=== PATIENT | female | born 1985 | race Caucasian/White ===

== ENCOUNTER 2016-04-08 18:36 | Emergency (ER) | payer BC ==
[2016-04-08 18:42] VITALS: RESP 18
[2016-04-08] MEDS ORDERED: IBUPROFEN 600 MG TAB PO STA (19:04)
--- NOTE | 2016-04-08 19:17 | ED ---
Lower Extremity Injury HPI - General Chief Complaint: Extremity Injury, Lower Stated Complaint: L Knee Injury Time Seen by Provider: 04/08/16 18:44 Source: patient, RN notes reviewed Mode of arrival: ambulatory Limitations: no limitations - History of Present Illness Initial Comments: Patient is a 30-year-old female presents to the emergency room for evaluation of left knee pain. 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 Patient states she has not been able to put weight on her left leg ever since. Patient states the incident happened around 4:30 PM this afternoon. Patient states she is having 10 out of 10 pain. Patient states the pain is worse when she puts weight on her leg or moves her knee. Patient denies any other injuries during incident. Patient denies taking any Tylenol or Motrin for pain. Patient states she put ice over her knee immediately after the incident happened. - Related Data Previous Rx's Medication Instructions Recorded Ibuprofen [Motrin] 600 mg PO Q6HR PRN #20 tab 04/08/16 traMADol HCl [Ultram] 50 mg PO Q4H PRN #12 tab 04/08/16 Allergies Allergy/AdvReac Type Severity Reaction Status Date / Time No Known Allergies Allergy Verified 04/08/16 18:43 Review of Systems ROS Statement: Those systems with pertinent positive or pertinent negative responses have been documented in the HPI. ROS Other: All systems not noted in ROS Statement are negative. Past Medical History Past Medical History: No Reported History Additional Past Medical History / Comment(s): Murmur when young. Social history : Smokes half pack of cigarettes per day. No marijuana or illicit drug use. No use of alcohol reported. No toxic inhalation reported. Family history: No family history of intrinsic lung disease reported. History of Any Multi-Drug Resistant Organisms: None Reported Past Surgical History: Appendectomy, Section Additional Past Surgical History / Comment(s): x2 c- scetion, reconstructive nASAL SX Past Anesthesia/Blood Transfusion Reactions: No Reported Reaction Past Psychological History: No Psychological Hx Reported Smoking Status: Current every day smoker Past Alcohol Use History: Occasional Past Drug Use History: None Reported General Exam - General Exam Comments Initial Comments: Sitting in exam room, no acute distress. Limitations: no limitations General appearance: alert, in no apparent distress Head exam: Present: atraumatic, normocephalic, normal inspection Eye exam: Present: normal appearance ENT exam: Present: normal exam Neck exam: Present: normal inspection Respiratory exam: Absent: respiratory distress Left Upper Leg exam: Present: normal inspection, full ROM. Absent: tenderness Knee exam: Present: tenderness (medial knee joint, posterior knee joint), pain w / pronation/supination. Absent: full ROM (patient unable to fully extend knee secondary to pain. Patient can only bend knee about 10), full knee extension Lower Leg exam: Present: normal inspection, full ROM. Absent: tenderness Neurovascular tendon exam: Absent: pulse deficit (2+ dorsal pedal and posterior tibial pulses), abnormal cap refill (Capillary refill less than 2 seconds) Gait: unable to bear weight Back exam: Present: normal inspection Neurological exam: Present: alert, oriented X3, CN II-XII intact Psychiatric exam: Present: normal affect, normal mood Skin exam: Present: warm, dry, intact, normal color. Absent: rash Course Vital Signs 04/08/16 04/08/16 18:41 19:57 Temperature 98.4 F 98 F Pulse Rate 71 78 Respiratory 18 18 Rate Blood Pressure 128/60 122/76 O2 Sat by Pulse 97 99 Oximetry Procedures - Orthopedic Splinting/Casting Injury #1 Side: left Lower Extremity Injury Location: knee Lower Extremity Immobilizer: Alfa wrap Medical Decision Making - Medical Decision Making Patient is a 30-year-old female presents to the emergency room for evaluation of left knee injury. Left knee x-ray shows no acute findings. Patient placed in an Alfa wrap and advised to [id number]. Advised patient to follow-up with clinic specialist for further evaluation to rule out any further internal injuries. Patient states she understands everything that was discussed with her. Return parameters discussed. Case discussed with Dr. Herron. - Radiology Data Radiology results: report reviewed, image reviewed Disposition Clinical Impression: Left knee sprain Disposition: HOME SELF-CARE Condition: Good Instructions: Knee Sprain (ED) Additional Instructions: Rest, elevate and ice on and off for 10-15 minutes for the next 24-48 hours. Take ibuprofen as needed for pain. Take tramadol as needed for severe pain. Please follow-up with clinic specialist in 24-48 hours for reevaluation. If new symptoms develop or symptoms worsen, please return to the ER. Prescriptions: Ibuprofen [Motrin] 600 mg PO Q6HR PRN #20 tab PRN Reason: Pain traMADol HCl [Ultram] 50 mg PO Q4H PRN #12 tab PRN Reason: Pain Referrals: Rosa Lozano MD [Primary Care Provider] - 1-2 days Paulo Brewster MD [STAFF PHYSICIAN] - 1-2 days Time of Disposition: 19:47
--- NOTE | 2016-04-08 19:44 | XR ---
EXAMINATION TYPE: XR knee complete LT DATE OF EXAM: 04/08/2016 7:19 PM CLINICAL HISTORY: Pain after hearing a pop. TECHNIQUE: Three views of the left knee are obtained. COMPARISON: None. FINDINGS: There is no acute fracture/dislocation evident in left knee. The tri-compartment joint sp aces appear within normal limits. The overlying soft tissue appears unremarkable. IMPRESSION: There is no acute fracture or dislocation in the left knee.
[2016-04-08 19:59] VITALS: BP 122/76; PULSE 78; TEMP 98
== END 2016-04-08 19:58 | disposition home or self-care (01) ==
LOC: EC 18:36
DX: S83.92XA Sprain of unspecified site of left knee, initial encounter (principal); X58.XXXA Exposure to other specified factors, initial encounter; F17.210 Nicotine dependence, cigarettes, uncomplicated
CPT/HCPCS: 99283

== ENCOUNTER → 2017-04-13 | Outpatient (CLI) | payer BC ==
--- NOTE | 2017-04-13 10:38 | XR ---
Left elbow HISTORY: Trauma and pain 2 views of the left elbow Comparison the left humerus 04/28/2012 Bone mineralization, joint spaces and alignment are maintained. No evident joint effusion. IMPRESSION: No acute fracture or dislocation.
== END | disposition home or self-care (01) ==
LOC: RADXRYALE 09:20
PROVIDERS: ATTEND Physician Assistant Medical
DX: M25.522 Pain in left elbow (principal)

== ENCOUNTER 2017-07-16 16:58 | Observation (INO) | payer BC ==
[2017-07-16] MEDS ORDERED: methylPREDNISolone SOD SUCCI 125 MG/2 ML VIAL IV STA (17:08)
[2017-07-16] MEDS ORDERED: IPRATROPIUM-ALBUTEROL 3 ML NEB INHALATION STA (17:08)
[2017-07-16] MEDS ORDERED: LORazepam 2 MG/ML INJ IV STA (17:09)
[2017-07-16 17:25] LABS: Basophils % (A) 0 %; Eosinophils # (A) 0.5 k/uL (0-0.7); Eosinophils % (A) 4 %; HCT 43.4 % (34.0-46.0); HGB 14.6 gm/dL (11.4-16.0); Lymphocytes # (A) 1.4 k/uL (1.0-4.8); Lymphocytes % (A) 11 %; MCH 27.9 pg (25.0-35.0); MCHC 33.5 g/dL (31.0-37.0); MCV 83.1 fL (80.0-100.0); Mean Platelet Volume 7.1; Monocytes # (A) 0.6 k/uL (0-1.0); Monocytes % (A) 5 %; Neutrophils # (A) 9.9 k/uL (1.3-7.7); Neutrophils % (A) 79 %; Platelet Count 223 k/uL (150-450); RBC 5.22 m/uL (3.80-5.40); RDW 13.6 % (11.5-15.5); WBC 12.5 k/uL (3.8-10.6)
[2017-07-16 17:35] LABS: Anion Gap 13 mmol/L; Blood Urea Nitrogen 11 mg/dL (7-17); Calcium 9.4 mg/dL (8.4-10.2); Carbon Dioxide 22 mmol/L (22-30); Chloride 109 mmol/L (98-107); Glucose 85 mg/dL (74-99); Potassium 4.1 mmol/L (3.5-5.1); Sodium 144 mmol/L (137-145)
--- NOTE | 2017-07-16 17:39 | ED ---
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 Patient reports is been like this for the past few days. Patient states that she has had to be admitted in the past for these symptoms. Patient relates that she waits until last minute to come to the emergency room. Patient reports that her cough has been mildly productive. - Related Data Previous Rx's Medication Instructions Recorded traMADol HCl [Ultram] 50 mg PO Q4H PRN #12 tab 04/08/16 Allergies Allergy/AdvReac Type Severity Reaction Status Date / Time albuterol AdvReac Unknown Verified 07/16/17 17:05 Review of Systems ROS Statement: Those systems with pertinent positive or pertinent negative responses have been documented in the HPI. ROS Other: All systems not noted in ROS Statement are negative. Past Medical History Past Medical History: No Reported History Additional Past Medical History / Comment(s): Murmur when young. Social history : Smokes half pack of cigarettes per day. No marijuana or illicit drug use. No use of alcohol reported. No toxic inhalation reported. Family history: No family history of intrinsic lung disease reported. History of Any Multi-Drug Resistant Organisms: None Reported Past Surgical History: Appendectomy, Section Additional Past Surgical History / Comment(s): x2 c- scetion, reconstructive nASAL SX Past Anesthesia/Blood Transfusion Reactions: No Reported Reaction Past Psychological History: No Psychological Hx Reported Smoking Status: Current every day smoker Past Alcohol Use History: Occasional Past Drug Use History: None Reported General Exam - General Exam Comments Initial Comments: 32-year-old female. Alert and oriented. Mild respiratory distress. Audible wheezing from door. Limitations: no limitations General appearance: alert, in no apparent distress Head exam: Present: atraumatic, normocephalic, normal inspection Eye exam: Present: normal appearance, PERRL, EOMI. Absent: scleral icterus, conjunctival injection, periorbital swelling ENT exam: Present: normal exam, mucous membranes moist Neck exam: Present: normal inspection. Absent: tenderness, meningismus, lymphadenopathy Respiratory exam: Present: wheezes, rhonchi (Diffuse wheezes and rhonchi noted.) . Absent: normal lung sounds bilaterally, respiratory distress, rales, stridor Cardiovascular Exam: Present: regular rate, normal rhythm, normal heart sounds. Absent: systolic murmur, diastolic murmur, rubs, gallop, clicks GI/Abdominal exam: Present: soft, normal bowel sounds. Absent: distended, tenderness, guarding, rebound, rigid Extremities exam: Present: normal inspection, full ROM, normal capillary refill. Absent: tenderness, pedal edema, joint swelling, calf tenderness Back exam: Present: normal inspection Neurological exam: Present: alert, oriented X3, CN II-XII intact Psychiatric exam: Present: normal affect, normal mood Course Vital Signs 07/16/17 07/16/17 07/16/17 17:02 17:22 17:25 Temperature 98.2 F Pulse Rate 107 H 107 H Respiratory 20 24 Rate Blood Pressure 96/52 O2 Sat by Pulse 97 Oximetry 07/16/17 07/16/17 17:32 18:34 Temperature 98.2 F Pulse Rate 112 H 80 Respiratory 18 Rate Blood Pressure 112/57 O2 Sat by Pulse 99 Oximetry - Reevaluation(s) Reevaluation #1: 07/16/17 18:52 Patient was given a DuoNeb treatment. She continues to have rhonchi and wheezing and cough. She is unable to complete sentences due to this bouts of coughing. I discussed admission and Patient is agreeable. We will admit for observation for COPD exacerbation with steroids and pus started the Patient on azithromycin. Medical Decision Making - Medical Decision Making This patient's a 32-year-old female with history of smoking presents with congestion and cough for the past 3 days. She reports initially started with her sinuses a week ago. She reports rib pain while coughing. EKG performed and shows normal sinus rhythm nonspecific T-wave abnormality and P3. No other acute changes. Troponin is negative. Negative d-dimer. Chest x-ray shows evidence of no focal pneumonia however peribronchial cuffing. After double DuoNeb she continues to have significant wheezing. Given IV Solu-Medrol. At this time elevated the Patient for COPD exacerbation. Consults to pulmonology. I had an extensive discussion about counseling for smoking cessation. - Lab Data Result diagrams: 07/16/17 17:10 07/16/17 17:10 Lab Results 07/16/17 07/16/17 07/16/17 Range/Units 17:10 17:10 17:10 WBC 12.5 H (3.8-10.6) k/uL RBC 5.22 (3.80-5.40) m/uL Hgb 14.6 (11.4-16.0) gm/dL Hct 43.4 (34.0-46.0) % MCV 83.1 (80.0-100.0) fL MCH 27.9 (25.0-35.0) pg MCHC 33.5 (31.0-37.0) g/dL RDW 13.6 (11.5-15.5) % Plt Count 223 (150-450) k/uL Neutrophils % 79 % Lymphocytes % 11 % Monocytes % 5 % Eosinophils % 4 % Basophils % 0 % Neutrophils # 9.9 H (1.3-7.7) k/uL Lymphocytes # 1.4 (1.0-4.8) k/uL Monocytes # 0.6 (0-1.0) k/uL Eosinophils # 0.5 (0-0.7) k/uL Basophils # 0.0 (0-0.2) k/uL PT (9.0-12.0) sec INR (<1.2) APTT (22.0-30.0) sec D-Dimer (<0.60) mg/L FEU Sodium 144 (137-145) mmol/L Potassium 4.1 (3.5-5.1) mmol/L Chloride 109 H (98-107) mmol/L Carbon Dioxide 22 (22-30) mmol/L Anion Gap 13 mmol/L BUN 11 (7-17) mg/dL Creatinine 0.80 (0.52-1.04) mg/dL Est GFR (CKD-EPI)AfAm >90 (>60 ml/min/1.73 sqM) Est GFR (CKD-EPI)NonAf >90 (>60 ml/min/1.73 sqM) Glucose 85 (74-99) mg/dL Plasma Lactic Acid Manny 1.5 (0.7-2.0) mmol/L Calcium 9.4 (8.4-10.2) mg/dL Troponin I (0.000-0.034) ng/mL 07/16/17 07/16/17 Range/Units 17:10 17:10 WBC (3.8-10.6) k/uL RBC (3.80-5.40) m/uL Hgb (11.4-16.0) gm/dL Hct (34.0-46.0) % MCV (80.0-100.0) fL MCH (25.0-35.0) pg MCHC (31.0-37.0) g/dL RDW (11.5-15.5) % Plt Count (150-450) k/uL Neutrophils % % Lymphocytes % % Monocytes % % Eosinophils % % Basophils % % Neutrophils # (1.3-7.7) k/uL Lymphocytes # (1.0-4.8) k/uL Monocytes # (0-1.0) k/uL Eosinophils # (0-0.7) k/uL Basophils # (0-0.2) k/uL PT 9.8 (9.0-12.0) sec INR 1.0 (<1.2) APTT 23.4 (22.0-30.0) sec D-Dimer 0.26 (<0.60) mg/L FEU Sodium (137-145) mmol/L Potassium (3.5-5.1) mmol/L Chloride (98-107) mmol/L Carbon Dioxide (22-30) mmol/L Anion Gap mmol/L BUN (7-17) mg/dL Creatinine (0.52-1.04) mg/dL Est GFR (CKD-EPI)AfAm (>60 ml/min/1.73 sqM) Est GFR (CKD-EPI)NonAf (>60 ml/min/1.73 sqM) Glucose (74-99) mg/dL Plasma Lactic Acid Manny (0.7-2.0) mmol/L Calcium (8.4-10.2) mg/dL Troponin I <0.012 (0.000-0.034) ng/mL - Radiology Data Radiology results: report reviewed Mild. Bronchial cuffing with surrounding bronchus intermedius suggest bronchitis reactive airway disease. No focal consolidation to suggest pneumonia. Disposition Clinical Impression: Bronchitis, Acute dyspnea, Chest wall pain, Nicotine addiction Disposition: ADMITTED IP TO THIS HOSP Condition: Stable Is patient prescribed a controlled substance at d/c from ED?: No When asked, does pt state using other controlled substances?: No If prescribed controlled substance>3 days was MAPS reviewed?: No If opioid is for acute pain is fill amount 7 days or less?: No If Rx opioid, was Start Talking consent form obtained?: No Referrals: Rosa Lozano MD [Primary Care Provider] - 1-2 days Time of Disposition: 18:54
--- NOTE | 2017-07-16 17:51 | XR ---
EXAMINATION TYPE: XR chest 2V DATE OF EXAM: 07/16/2017 COMPARISON: 09/03/2013 HISTORY: Cough and congestion TECHNIQUE: Frontal and lateral views of the chest are obtained. FINDINGS: There is mild peribronchial cuffing surrounding the bronchus intermedius There is no focal air space opacity, pleural effusion, or pneumothorax seen. The cardiac silhouette size is within no rmal limits. The osseous structures are intact. IMPRESSION: Mild peribronchial cuffing surrounding the bronchus intermedius suggesting bronchitis or reactive airway disease. No focal consolidation to suggest pneumonia.
[2017-07-16 18:09] LABS: D-Dimer 0.26 mg/L FEU (<0.60); Partial Thromboplastin Time 23.4 sec (22.0-30.0); Prothrombin Time 9.8 sec (9.0-12.0)
[2017-07-16] MEDS: SODIUM CHLORIDE 0.9% 1,000 ML IV SCH (18:32)
[2017-07-16] MEDS ORDERED: NICOTINE 14MG/24HR PATCH TRANSDERM SCH (19:00)
[2017-07-16 19:58] VITALS: BMI 27.4
[2017-07-16] MEDS: ALPRAZolam 0.25 MG TAB PO PRN (20:09)
[2017-07-16] MEDS: guaiFENesin 600 MG TABLET.ER PO SCH (20:10)
[2017-07-16] MEDS: HYDROcodone/APAP 5-325MG 1 EACH TAB PO PRN (20:10)
[2017-07-16 20:44] LABS: Glucose,Whole Blood 147 mg/dL (75-99)
[2017-07-16] MEDS: IPRATROPIUM-ALBUTEROL 3 ML NEB INHALATION PRN (20:45)
[2017-07-16] MEDS: BUDESONIDE 0.5 MG/2 ML NEBU INHALATION SCH (20:45)
[2017-07-16] MEDS: INSULIN ASPART 100 UNIT/ML 1 ML 10 ML VIAL SQ SCH (22:05)
[2017-07-16] MEDS ORDERED: MELATONIN 5 MG TABLET PO SCH (22:30)
[2017-07-17] MEDS: methylPREDNISolone SOD SUCCI 125 MG/2 ML VIAL IV SCH ×3 (01:01→12:54)
[2017-07-17] MEDS: ALPRAZolam 0.25 MG TAB PO PRN ×2 (01:01→07:50)
[2017-07-17] MEDS: IPRATROPIUM-ALBUTEROL 3 ML NEB INHALATION PRN ×2 (02:04→08:44)
[2017-07-17] MEDS: HYDROcodone/APAP 5-325MG 1 EACH TAB PO PRN ×2 (05:24→12:53)
[2017-07-17 05:39] LABS: Appearance,Urine Clear (Clear); Bilirubin,Urine Negative (Negative); Blood,Urine Negative (Negative); Color,Urine Yellow; Glucose,Urine (UA) 4+ (Negative); Ketones,Urine Trace (Negative); Leukocyte Esterase,Urine Negative (Negative); Nitrite,Urine Negative (Negative); PH, Urine 6.5 (5.0-8.0); Protein,Urine Negative (Negative); Specific Gravity,Urine 1.023 (1.001-1.035); Urobilinogen,Urine <2.0 mg/dL (<2.0)
[2017-07-17 06:54] LABS: Glucose,Whole Blood 133 mg/dL (75-99)
[2017-07-17 07:41] VITALS: BP 108/57; RESP 18; TEMP 98
[2017-07-17] MEDS: BUDESONIDE 0.5 MG/2 ML NEBU INHALATION SCH (08:44)
[2017-07-17] MEDS: INSULIN ASPART 100 UNIT/ML 1 ML 10 ML VIAL SQ SCH ×2 (08:56→12:54)
[2017-07-17 08:58] VITALS: PULSE 98
[2017-07-17] MEDS: guaiFENesin 600 MG TABLET.ER PO SCH (08:58)
[2017-07-17] MEDS: SODIUM CHLORIDE 0.9% 1,000 ML IV SCH (08:59)
[2017-07-17] MEDS ORDERED: AZITHROMYCIN 500 MG TAB PO SCH (09:00)
--- NOTE | 2017-07-17 10:37 | P.CNPUL ---
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 She presents to the emergency department with complaints of increasing shortness of breath cough wheezing chest tightness. She had a previous episode about 4 years ago which time she saw my partner. She has not been back to the office. She smokes about a pack a day for 19 years. Started smoking when she was 13 years of age. Doesn't take any medication on a regular basis. She does take some tramadol from time to time for a bad right knee. She states that albuterol causes her to feel nervous and anxious. The patient's doing much better today. Could be discharged home on some prednisone with a burst and taper and a rescue inhaler. In addition we counseled about the importance of smoking cessation. Finally, we told her that it's very important for her to come see us in the office so we can do some pulmonary function testing on her. It appears that the only time her lungs are tacked up is when she has an upper respiratory tract infection or sinus infection. She does have a previous history of 2 with reconstructive nasal surgeries and appendectomy. Review of Systems A 12 point review of system is positive for shortness of breath chest tightness wheezing cough chest congestion. Past Medical History Past Medical History: COPD Additional Past Medical History / Comment(s): Murmur when young. Social history : Smokes half pack of cigarettes per day. No marijuana or illicit drug use. No use of alcohol reported. No toxic inhalation reported. Family history: No family history of intrinsic lung disease reported. History of Any Multi-Drug Resistant Organisms: None Reported Past Surgical History: Appendectomy, Section Additional Past Surgical History / Comment(s): x2 c- scetion, reconstructive nASAL SX Past Anesthesia/Blood Transfusion Reactions: No Reported Reaction Past Psychological History: No Psychological Hx Reported Smoking Status: Current every day smoker Past Alcohol Use History: Occasional Past Drug Use History: None Reported - Past Family History Father History Unknown: Yes Medications and Allergies Home Medications Medication Instructions Recorded Confirmed Type traMADol HCl [Ultram] 50 mg PO Q4H PRN #12 tab 04/08/16 07/17/17 Rx Albuterol Inhaler [Ventolin Hfa 1 - 2 puff INHALATION RT-Q6H PRN 07/17/17 Rx Inhaler] 30 Days #1 inhaler Azithromycin [Zithromax] 500 mg PO DAILY 5 Days #5 tab 07/17/17 Rx predniSONE 10 mg PO DAILY 16 Days #40 tab 07/17/17 Rx Allergies Allergy/AdvReac Type Severity Reaction Status Date / Time albuterol AdvReac ANXIETY Verified 07/17/17 09:01 Physical Exam Osteopathic Statement: *. No significant issues noted on an osteopathic structural exam other than those noted in the History and Physical/Consult. Vitals: Vital Signs Temp Pulse Pulse Resp BP BP Pulse Ox 07/17/17 08:57 98 07/17/17 08:46 94 94 L 07/17/17 08:00 18 07/17/17 07:20 98.0 F 97 18 108/57 95 07/17/17 04:00 98.7 F 99 16 96 07/17/17 02:14 96 07/17/17 02:04 92 07/16/17 23:43 98.8 F 110 H 18 111/49 99 07/16/17 23:30 18 07/16/17 20:59 112 H 07/16/17 20:47 104 H 07/16/17 20:02 98.1 F 100 18 113/73 96 07/16/17 20:00 18 07/16/17 18:34 98.2 F 80 18 112/57 99 07/16/17 17:32 112 H 07/16/17 17:25 107 H 07/16/17 17:22 24 07/16/17 17:02 98.2 F 107 H 20 96/52 97 Intake and Output 07/16/17 07/17/17 07/17/17 22:59 06:59 14:59 Intake Total 240 Balance 240 Intake: Oral 240 Other: Voiding Method Toilet Toilet Toilet # Voids 1 2 Weight 70.6 kg No acute distress, oriented 3. HEENT examination is grossly unremarkable. Mucous membranes are moist. No oral lesions. Neck supple. Full range of motion. No adenopathy thyromegaly or neck vein distention. Cardiovascular examination reveals regular rhythm rate. S1-S2 normal. No S3 or S4. No discernible murmur noted. Lungs reveal bilateral inspiratory and expiratory wheezes and rhonchi. Breath sounds are diminished throughout. Slight prolongation. No crackles. Abdomen soft bowel sounds are heard. No masses or tenderness. Extremities are intact. No cyanosis clubbing or edema. Skin is without rash or lesion. Neurologic examination is brief but nonfocal. Results - Laboratory Findings CBC and BMP: 07/16/17 17:10 07/16/17 17:10 PT/INR, D-dimer PT 9.8 sec (9.0-12.0) 07/16/17 17:10 INR 1.0 (<1.2) 07/16/17 17:10 D-Dimer 0.26 mg/L FEU (<0.60) 07/16/17 17:10 Abnormal lab findings: Abnormal Labs 07/16/17 07/16/17 07/16/17 17:10 17:10 20:42 WBC 12.5 H Neutrophils # 9.9 H Chloride 109 H POC Glucose (mg/dL) 147 H Urine Glucose (UA) Urine Ketones 07/17/17 07/17/17 05:30 06:51 WBC Neutrophils # Chloride POC Glucose (mg/dL) 133 H Urine Glucose (UA) 4+ H Urine Ketones Trace H - Diagnostic Findings Chest x-ray: report reviewed (Labs x-rays a medications are all reviewed.), image reviewed (Labs x-rays and medications are all reviewed.) Assessment and Plan Assessment: Assessment Probable asthma/COPD exacerbation, likely triggered by chronic tobacco use and/ or environmental issues. Previous history of similar episode some 4 years ago with a bronchospasm and bronchial inflammation. History of ongoing tobacco use Previous knee injury requiring when necessary tramadol Plan: Plan dated 07/17/2017 The patient could be discharged home. She should be discharged on a rescue inhaler to be used 2 puffs only as needed. In addition, she can be discharged home on prednisone 40 mg a day for 4 days 30 mg a day for 4 days 20 mg a day for 4 days 10 mg a day for stop. In addition, the patient is counseled about the importance of smoking cessation. The patient will follow-up in our office. PFTs will be done. Additional recommendations and suggestions are forthcoming. Prognosis is guarded. The decision to discharge her on is short course of antibiotics will be left to the primary service. If antibiotics are prescribed on discharge, I wouldn't treat her for a short period of time such as 3-5 days. No additional recommendations are made. Time with Patient: Greater than 30
[2017-07-17 12:03] LABS: Glucose,Whole Blood 151 mg/dL (75-99)
--- NOTE | 2017-07-17 15:27 | P.HPIM ---
History of Present Illness H&P Date: 07/17/17 Chief Complaint: Shortness of breath Ms. Bean is a 32-year-old [employer] with a past medical history of chronic smoking coming into the hospital with a chief complaint of difficulty in breathing and chest tightness which has been going on for the past 1 week he patient states that she had is similar episode about 4 years back for which she was treated with antibiotics. Patient has been smoking since she was 13 years old. She does not have any chronic medical conditions. She takes tramadol on and off for her right knee and lower back. She states that she has been having cough, nonproductive for the past 2-3 weeks. She denies having any fevers chills or rigors. No night sweats. No recent weight loss. No sick contacts. She denies having any chest pain, palpitations, lower extremity swelling, orthopnea or PND. No complaints of abdominal pain nausea vomiting or diarrhea. No dysuria or hematuria. Patient states that because of the cough she pulled a muscle in her back and has been having back pain whenever she is having a cough. She also mentions that the breathing treatments cause her to have palpitations and she becomes anxious and that Xanax did help her with the anxiety. Patient was given breathing treatments in the ED started on Solu-Medrol and the started on azithromycin after which her symptoms did improve. She was evaluated by Dr. Eckert today and he cleared her to be discharged home and to have a follow-up with him in his office. Review of Systems REVIEW OF SYSTEMS: PSYCH: Anxious with breathing treatments as it gives her palpitations NEURO:No c/o weakness of the extremties, No facial droop, No speech abnormalities. VASCULAR: no edema HEMATOLOGIC: No history of easy bleeding and bruising . No recent infections . RESPIRATORY: As per HPI IMMUNE: No infections INTEGUMENT: no rashes OPHTHALMOLOGIC: No blurry vision and no eye discharge : No dysuria or hematuria CARDIAC: No chest pain , shortness of breath , paroxysmal nocturnal dyspnea MUSCULOSKELETAL : No Aches or pains in the joints or muscles. GI: No abdominal pain, Nausea or vomiting. No constipation or diarrhea. Past Medical History Past Medical History: COPD Additional Past Medical History / Comment(s): Murmur when young. Social history : Smokes half pack of cigarettes per day. No marijuana or illicit drug use. No use of alcohol reported. No toxic inhalation reported. Family history: No family history of intrinsic lung disease reported. History of Any Multi-Drug Resistant Organisms: None Reported Past Surgical History: Appendectomy, Section Additional Past Surgical History / Comment(s): x2 c- scetion, reconstructive nASAL SX Past Anesthesia/Blood Transfusion Reactions: No Reported Reaction Past Psychological History: No Psychological Hx Reported Smoking Status: Current every day smoker Past Alcohol Use History: Occasional Past Drug Use History: None Reported - Past Family History Father History Unknown: Yes Medications and Allergies Home Medications Medication Instructions Recorded Confirmed Type traMADol HCl [Ultram] 50 mg PO Q4H PRN #12 tab 04/08/16 07/17/17 Rx Albuterol Inhaler [Ventolin Hfa 1 - 2 puff INHALATION RT-Q6H PRN 07/17/17 Rx Inhaler] 30 Days #1 inhaler Azithromycin [Zithromax] 500 mg PO DAILY 5 Days #5 tab 07/17/17 Rx predniSONE 10 mg PO DAILY 16 Days #40 tab 07/17/17 Rx Allergies Allergy/AdvReac Type Severity Reaction Status Date / Time albuterol AdvReac ANXIETY Verified 07/17/17 09:01 Physical Exam Vitals: Vital Signs Temp Pulse Pulse Resp BP BP Pulse Ox 07/17/17 12:00 18 07/17/17 08:57 98 07/17/17 08:46 94 94 L 07/17/17 08:00 18 07/17/17 07:20 98.0 F 97 18 108/57 95 07/17/17 04:00 98.7 F 99 16 96 07/17/17 02:14 96 07/17/17 02:04 92 07/16/17 23:43 98.8 F 110 H 18 111/49 99 07/16/17 23:30 18 07/16/17 20:59 112 H 07/16/17 20:47 104 H 07/16/17 20:02 98.1 F 100 18 113/73 96 07/16/17 20:00 18 07/16/17 18:34 98.2 F 80 18 112/57 99 07/16/17 17:32 112 H 07/16/17 17:25 107 H 07/16/17 17:22 24 07/16/17 17:02 98.2 F 107 H 20 96/52 97 Intake and Output 07/16/17 07/17/17 07/17/17 22:59 06:59 14:59 Intake Total 680 Balance 680 Intake: Oral 480 Other 200 Other: Voiding Method Toilet Toilet Toilet # Voids 1 2 Weight 70.6 kg GENERAL EXAM GEN. APPEARANCE: alert, in no apparent distress HEAD EXAM: atraumatic, normocephalic, normal inspection EYE EXAM: normal appearance, PERRL, EOMI. Absent: scleral icterus, conjunctival injection, periorbital swelling ENT EXAM: normal exam, mucous membranes moist NECK EXAM: normal inspection. Absent: tenderness, meningismus, full ROM, lymphadenopathy RESPIRATORY EXAM: normal lung sounds bilaterally. No wheezes or crackles. CARDIOVASCULAR EXAM: regular rate, normal rhythm, normal heart sounds. Absent : systolic murmur, diastolic murmur, rubs, gallop, clicks GI/ABDOMINAL EXAM: soft, normal bowel sounds. Absent: distended, tenderness, guarding, rebound, rigid EXTREMITIES EXAM: normal inspection, full ROM, normal capillary refill. Absent : tenderness, pedal edema, joint swelling, calf tenderness NEUROLOGICAL EXAM: alert, oriented X3, no focal neurological deficits PSYCHIATRIC EXAM: normal affect, normal mood SKIN EXAM: warm, dry, intact, normal color. Absent: rash Results CBC & Chem 7: 07/16/17 17:10 07/16/17 17:10 Labs: Abnormal Lab Results - Last 24 Hours (Table) 07/16/17 07/16/17 07/16/17 Range/Units 17:10 17:10 20:42 WBC 12.5 H (3.8-10.6) k/uL Neutrophils # 9.9 H (1.3-7.7) k/uL Chloride 109 H (98-107) mmol/L POC Glucose (mg/dL) 147 H (75-99) mg/dL Urine Glucose (UA) (Negative) Urine Ketones (Negative) 07/17/17 07/17/17 07/17/17 Range/Units 05:30 06:51 12:01 WBC (3.8-10.6) k/uL Neutrophils # (1.3-7.7) k/uL Chloride (98-107) mmol/L POC Glucose (mg/dL) 133 H 151 H (75-99) mg/dL Urine Glucose (UA) 4+ H (Negative) Urine Ketones Trace H (Negative) Thrombosis Risk Factor Assmnt - Choose All That Apply Each Factor Represents 1 point: Abnormal pulmonary function (COPD) Thrombosis Risk Factor Assessment Total Risk Factor Score: 1 Thrombosis Risk Factor Assessment Level: Low Risk Assessment and Plan Assessment: ASSESSMENT Acute bronchitis ? COPD Nicotine dependence Acute lower back pain due to muscle spasm Right knee pain - chronic Plan: Patient's respiratory status did improve with breathing treatments and the Solu-Medrol. She has been cleared by pulmonary to be discharged home and have a follow-up with them. Patient is being discharged home on short course of steroids, Zithromax and albuterol to take on when necessary basis. Also discussed with the patient if her symptoms worsen to seek immediate medical attention. She has an upcoming appointment with Dr. Lozano in 2 days. Patient states that she is anxious with the breathing treatments so requested Xanax that will be given for couple of days. Patient also has acute low back pain due to muscle spasm so tramadol given for couple of days.
--- NOTE | 2017-07-17 15:30 | P.DS ---
Providers Date of admission: 07/16/17 18:51 Attending physician: Hany Das Consults: 07/16/17 18:55 Consult Physician Stat Consulting Provider: Gracie Sharma Consult Reason/Comments: COPD Do you want consulting provider notified?: Yes, Notify in am Primary care physician: Rosa Lozano [facility] Course: Ms. Bean is a 32-year-old [employer] with a past medical history of chronic smoking coming into the hospital with a chief complaint of difficulty in breathing and chest tightness which has been going on for the past 1 week he patient states that she had is similar episode about 4 years back for which she was treated with antibiotics. Patient has been smoking since she was 13 years old. She does not have any chronic medical conditions. She takes tramadol on and off for her right knee and lower back. She states that she has been having cough, nonproductive for the past 2-3 weeks. She denies having any fevers chills or rigors. No night sweats. No recent weight loss. No sick contacts. She denies having any chest pain, palpitations, lower extremity swelling, orthopnea or PND. No complaints of abdominal pain nausea vomiting or diarrhea. No dysuria or hematuria. Patient states that because of the cough she pulled a muscle in her back and has been having back pain whenever she is having a cough. She also mentions that the breathing treatments cause her to have palpitations and she becomes anxious and that Xanax did help her with the anxiety. Patient was given breathing treatments in the ED started on Solu-Medrol and the started on azithromycin after which her symptoms did improve. She was evaluated by Dr. Eckert today and he cleared her to be discharged home and to have a follow-up with him in his office. DISCHARGE DIAGNOSIS Acute bronchitis ? COPD Nicotine dependence Acute lower back pain due to muscle spasm Right knee pain - chronic Patient's respiratory status did improve with breathing treatments and the Solu- Medrol. She has been cleared by pulmonary to be discharged home and have a follow-up with them. Patient is being discharged home on short course of steroids, Zithromax and albuterol to take on when necessary basis. Also discussed with the patient if her symptoms worsen to seek immediate medical attention. She has an upcoming appointment with Dr. Lozano in 2 days. Patient states that she is anxious with the breathing treatments so requested Xanax that will be given for couple of days. Patient also has acute low back pain due to muscle spasm so tramadol given for couple of days. Patient Condition at Discharge: Stable Plan - Discharge Summary New Discharge Prescriptions: New Albuterol Inhaler [Ventolin Hfa Inhaler] 1 - 2 puff INHALATION RT-Q6H PRN 30 Days #1 inhaler PRN Reason: Dyspnea Azithromycin [Zithromax] 500 mg PO DAILY 5 Days #5 tab predniSONE 10 mg PO DAILY 16 Days #40 tab ALPRAZolam [Xanax] 0.25 mg PO QID PRN #10 tab PRN Reason: Anxiety Nicotine 14Mg/24Hr Patch [Habitrol] 1 patch TRANSDERM Q24H #14 patch Continue traMADol HCl [Ultram] 50 mg PO Q4H PRN #12 tab PRN Reason: Pain Discharge Medication List ALPRAZolam [Xanax] 0.25 mg PO QID PRN #10 tab 07/17/17 [Rx] Albuterol Inhaler [Ventolin Hfa Inhaler] 1 - 2 puff INHALATION RT-Q6H PRN 30 Days #1 inhaler 07/17/17 [Rx] Azithromycin [Zithromax] 500 mg PO DAILY 5 Days #5 tab 07/17/17 [Rx] Nicotine 14Mg/24Hr Patch [Habitrol] 1 patch TRANSDERM Q24H #14 patch 07/17/17 [ Rx] predniSONE 10 mg PO DAILY 16 Days #40 tab 07/17/17 [Rx] traMADol HCl [Ultram] 50 mg PO Q4H PRN #12 tab 07/17/17 [Rx] Follow up Appointment(s)/Referral(s): Duy Eckert DO [Doctor of Osteopathic Medicine] - 08/01/17 9:30 am Rosa Lozano MD [Primary Care Provider] - 1-2 days
== END 2017-07-17 15:57 | disposition home or self-care (01) ==
LOC: EC 16:58 → 3OBS 18:51
PROVIDERS: ADMIT Hospitalist; ATTEND Hospitalist
DX: J44.0 Chronic obstructive pulmonary disease with (acute) lower respiratory infection (principal); J20.9 Acute bronchitis, unspecified; F17.210 Nicotine dependence, cigarettes, uncomplicated; G89.29 Other chronic pain; M25.561 Pain in right knee; F41.9 Anxiety disorder, unspecified; M62.838 Other muscle spasm; M54.5 Low back pain; R94.31 Abnormal electrocardiogram [ECG] [EKG]; Z90.89 Acquired absence of other organs; Z88.8 Allergy status to other drugs, medicaments and biological substances; Z87.828 Personal history of other (healed) physical injury and trauma
CPT/HCPCS: 96376; 96361 ×2; 96374 ×2; 96375 ×2; 99285 ×2; 36415; 94640 ×4; 94760; 93005; 85379; 80048; 83605; 84484; 85025; 85610; 85730; 81003; 87040; 71046; G0378 ×2; S4990; J2060; J2930 ×2

== ENCOUNTER 2018-08-16 22:51 | Emergency (ER) | payer BC ==
[2018-08-16] MEDS ORDERED: KETOROLAC 60 MG/2 ML VIAL IM STA (23:05)
[2018-08-16] MEDS ORDERED: PENICILLIN G BENZATHINE 1,200,000 UNIT/2 ML SYRINGE IM STA (23:06)
[2018-08-16] MEDS ORDERED: ONDANSETRON 4 MG ODT STARTER PACK 2 TAB BTL PO STA (23:06)
[2018-08-16] MEDS ORDERED: MORPHINE SULFATE 4 MG/ML SYRINGE IM STA (23:06)
[2018-08-16] MEDS ORDERED: ACET/COD 300 MG/30 MG STARTER PACK 6 TAB BTL PO STA (23:07)
--- NOTE | 2018-08-16 23:18 | ED ---
General Adult HPI - General Chief complaint: Dental/Oral Stated complaint: Dental Pain Time Seen by Provider: 08/16/18 22:59 Source: patient, RN notes reviewed Mode of arrival: ambulatory Limitations: no limitations - History of Present Illness Initial comments: Patient is a pleasant 33-year-old female presenting to the emergency Department with complaints of dental pain. Onset of symptoms was a day or 2 ago. Patient did start taking an old prescription of penicillin yesterday. Patient states discomfort has worsened today. Patient does have history of similar symptoms previously and has seen dentist for this. Patient states that there is plan for work to be done on this tooth. Patient states her last flareup was in March. Patient states discomfort does radiate towards her ear. Patient states she does have associated nausea with this. - Related Data Previous Rx's Medication Instructions Recorded ALPRAZolam [Xanax] 0.25 mg PO QID PRN #10 tab 07/17/17 Albuterol Inhaler [Ventolin Hfa 1 - 2 puff INHALATION RT-Q6H PRN 07/17/17 Inhaler] 30 Days #1 inhaler Azithromycin [Zithromax] 500 mg PO DAILY 5 Days #5 tab 07/17/17 Nicotine 14Mg/24Hr Patch [Habitrol] 1 patch TRANSDERM Q24H #14 patch 07/17/17 predniSONE 10 mg PO DAILY 16 Days #40 tab 07/17/17 traMADol HCl [Ultram] 50 mg PO Q4H PRN #12 tab 07/17/17 Penicillin V Potassium [Pen Vee K] 500 mg PO QID #40 tablet 08/16/18 Allergies Allergy/AdvReac Type Severity Reaction Status Date / Time albuterol AdvReac ANXIETY Verified 07/17/17 09:01 Review of Systems ROS Statement: Those systems with pertinent positive or pertinent negative responses have been documented in the HPI. ROS Other: All systems not noted in ROS Statement are negative. Constitutional: Denies: fever Eyes: Denies: eye pain ENT: Reports: dental pain. Denies: ear pain Respiratory: Denies: cough Cardiovascular: Denies: chest pain Endocrine: Denies: fatigue Gastrointestinal: Denies: abdominal pain Genitourinary: Denies: dysuria Musculoskeletal: Denies: back pain Skin: Denies: rash Neurological: Denies: weakness Past Medical History Past Medical History: COPD Additional Past Medical History / Comment(s): Murmur when young. Social history: Smokes half pack of cigarettes per day. No marijuana or illicit drug use. No use of alcohol reported. No toxic inhalation reported. Family history: No family history of intrinsic lung disease reported. History of Any Multi-Drug Resistant Organisms: None Reported Past Surgical History: Appendectomy, Section Additional Past Surgical History / Comment(s): x2 c- scetion, reconstructive nASAL SX Past Anesthesia/Blood Transfusion Reactions: No Reported Reaction Past Psychological History: No Psychological Hx Reported Smoking Status: Current every day smoker Past Alcohol Use History: Occasional Past Drug Use History: None Reported - Past Family History Father History Unknown: Yes General Exam Limitations: no limitations General appearance: alert Head exam: Present: atraumatic Eye exam: Present: normal appearance, PERRL ENT exam: Present: normal oropharynx, other (Left upper third premolar with tenderness and minimal lateral swelling.) Neck exam: Present: normal inspection Respiratory exam: Present: normal lung sounds bilaterally Cardiovascular Exam: Present: regular rate, normal rhythm GI/Abdominal exam: Present: soft. Absent: tenderness Neurological exam: Present: alert Psychiatric exam: Present: normal affect, normal mood Skin exam: Present: normal color Course Vital Signs 08/16/18 22:55 Temperature 98.4 F Pulse Rate 68 Respiratory 18 Rate Blood Pressure 153/108 O2 Sat by Pulse 97 Oximetry Disposition Clinical Impression: Dental abscess Disposition: HOME SELF-CARE Condition: Stable Instructions (If sedation given, give patient instructions): Dental Abscess (ED), Toothache (ED) Additional Instructions: Please do follow-up with your primary care physician in the next day or 2 for recheck. Please do follow-up with your dentist tomorrow as planned. Return for increased pain, swelling, fever, redness, worsening symptoms or other concerns. Prescriptions: Penicillin V Potassium [Pen Vee K] 500 mg PO QID #40 tablet Is patient prescribed a controlled substance at d/c from ED?: No Referrals: Rosa Lozano MD [Primary Care Provider] - 1-2 days Time of Disposition: 23:18
[2018-08-16 23:41] VITALS: BP 148/87; PULSE 62; RESP 16; TEMP 98.1
== END 2018-08-16 23:41 | disposition home or self-care (01) ==
LOC: EC 22:51
DX: K04.7 Periapical abscess without sinus (principal); F17.210 Nicotine dependence, cigarettes, uncomplicated
CPT/HCPCS: 99282; 96372 ×3; J0561; J2270; J1885; S0119

== ENCOUNTER 2020-01-18 01:28 | Emergency (ER) | payer BC ==
[2020-01-18 01:47] VITALS: RESP 16
[2020-01-18] MEDS ORDERED: SODIUM CHLORIDE 0.9% 1,000 ML IV STA (01:47)
[2020-01-18] MEDS ORDERED: SODIUM CHLORIDE 0.9% 500 ML 500 ML IV STA (01:47)
[2020-01-18] MEDS ORDERED: LORazepam 2 MG/ML INJ IV STA (01:48)
--- NOTE | 2020-01-18 01:48 | ED ---
Chest Pain HPI - General Chief Complaint: Chest Pain Stated Complaint: Chest Pain Time Seen by Provider: 01/18/20 01:34 Source: patient, family, RN notes reviewed, old records reviewed Mode of arrival: wheelchair Limitations: no limitations - History of Present Illness Initial Comments: This is a 34-year-old female DF for evaluation patient is presenting for evaluation of chest pain this did wake her from sleep symptoms are off for a month. No acute cause found for symptoms in the past. No prior evaluations in the past. Shows have asthma no history of coronavirus no nausea vomiting or diarrhea no chance of . No recent travel history or sick contacts MD Complaint: chest pain -: hour(s) Onset: during rest Pain Location: substernal Pain Radiation: none Severity: mild Severity scale (1-10): 3 Quality: tightness Consistency: constant Improves With: nothing Worsens With: exertion Context: recent illness Anginal Symptoms: nausea Treatments Prior to Arrival: none - Related Data Home Medications Medication Instructions Recorded Confirmed Ibuprofen [Motrin Ib] 400 mg PO Q6H PRN 08/16/18 08/16/18 Previous Rx's Medication Instructions Recorded Penicillin V Potassium [Pen Vee K] 500 mg PO QID #40 tablet 08/16/18 Allergies Allergy/AdvReac Type Severity Reaction Status Date / Time albuterol AdvReac ANXIETY Verified 01/18/20 01:37 Review of Systems ROS Statement: Those systems with pertinent positive or pertinent negative responses have been documented in the HPI. ROS Other: All systems not noted in ROS Statement are negative. EKG Findings - EKG Comments: EKG Findings:: EKG is sinus ED, OR 146 QRS 84 QTc 475 Past Medical History Past Medical History: COPD Additional Past Medical History / Comment(s): Murmur when young. History of Any Multi-Drug Resistant Organisms: None Reported Past Surgical History: Appendectomy, Section Additional Past Surgical History / Comment(s): x2 c- scetion, reconstructive nASAL SX Past Anesthesia/Blood Transfusion Reactions: No Reported Reaction Past Psychological History: No Psychological Hx Reported Smoking Status: Former smoker Past Alcohol Use History: Rare Past Drug Use History: None Reported - Past Family History Father History Unknown: Yes General Exam Limitations: no limitations General appearance: anxious Head exam: Present: atraumatic, normocephalic, normal inspection Eye exam: Present: normal appearance, PERRL, EOMI. Absent: scleral icterus, conjunctival injection, periorbital swelling ENT exam: Present: normal exam, mucous membranes moist Neck exam: Present: normal inspection. Absent: tenderness, meningismus, lymphadenopathy Respiratory exam: Present: normal lung sounds bilaterally. Absent: respiratory distress, wheezes, rales, rhonchi, stridor Cardiovascular Exam: Present: regular rate, normal rhythm, normal heart sounds. Absent: systolic murmur, diastolic murmur, rubs, gallop, clicks GI/Abdominal exam: Present: soft, normal bowel sounds. Absent: distended, tenderness, guarding, rebound, rigid Extremities exam: Present: normal inspection, full ROM, normal capillary refill. Absent: tenderness, pedal edema, joint swelling, calf tenderness Back exam: Present: normal inspection Neurological exam: Present: alert, oriented X3, CN II-XII intact Psychiatric exam: Present: normal affect, normal mood Skin exam: Present: warm, dry, intact, normal color. Absent: rash Course Vital Signs 01/18/20 01:35 Temperature 98.6 F Pulse Rate 86 Respiratory 16 Rate Blood Pressure 133/91 O2 Sat by Pulse 100 Oximetry - Reevaluation(s) Reevaluation #1: 01/18/20 03:01 Medical record is reviewed Reevaluation #2: 01/18/20 03:01 Patient symptoms improved with some anxiety control here in the ER, potassium we'll replace Reevaluation #3: 01/18/20 03:01 Patient is informed of results, questions answered, patient can be discharged Chest Pain MDM - MDM 34 female DF for evaluation patient Dese for evaluation with chest pain no cause found here in the ER some anxiety, otherwise patient can be discharged home Disposition Clinical Impression: Chest wall pain, Atypical chest pain Disposition: HOME SELF-CARE Condition: Good Instructions (If sedation given, give patient instructions): Chest Pain (ED) Is patient prescribed a controlled substance at d/c from ED?: No Referrals: Rosa Lozano MD [Primary Care Provider] - 1-2 days
[2020-01-18 02:17] LABS: Basophils % (A) 0 %; Eosinophils # (A) 0.3 k/uL (0-0.7); Eosinophils % (A) 4 %; HCT 44.8 % (34.0-46.0); HGB 14.8 gm/dL (11.4-16.0); Lymphocytes # (A) 2.1 k/uL (1.0-4.8); Lymphocytes % (A) 25 %; MCH 28.6 pg (25.0-35.0); MCHC 33.2 g/dL (31.0-37.0); MCV 86.2 fL (80.0-100.0); Mean Platelet Volume 7.4; Monocytes # (A) 0.3 k/uL (0-1.0); Monocytes % (A) 3 %; Neutrophils # (A) 5.5 k/uL (1.3-7.7); Neutrophils % (A) 66 %; Platelet Count 216 k/uL (150-450); RBC 5.19 m/uL (3.80-5.40); RDW 12.9 % (11.5-15.5); WBC 8.3 k/uL (3.8-10.6)
[2020-01-18 02:44] LABS: ALT 32 U/L (4-34); AST 31 U/L (14-36); African American GFR (CKD) >90 (>60 ml/min/1.73 sqM); Albumin 4.2 g/dL (3.5-5.0); Alkaline Phosphatase 58 U/L (38-126); Anion Gap 6 mmol/L; Blood Urea Nitrogen 10 mg/dL (7-17); Calcium 9.3 mg/dL (8.4-10.2); Carbon Dioxide 25 mmol/L (22-30); Chloride 108 mmol/L (98-107); Creatine Kinase 92 U/L (30-135); Glucose 102 mg/dL (74-99); Lipase 45 U/L (23-300); Magnesium 1.8 mg/dL (1.6-2.3); Non-African American GFR(CKD) >90 (>60 ml/min/1.73 sqM); Potassium 3.3 mmol/L (3.5-5.1); Sodium 139 mmol/L (137-145); Total Bilirubin 0.4 mg/dL (0.2-1.3); Total Protein 6.7 g/dL (6.3-8.2)
[2020-01-18 02:49] LABS: D-Dimer 0.29 mg/L FEU (<0.60); INR 0.9 (<1.2); Partial Thromboplastin Time 24.1 sec (22.0-30.0); Prothrombin Time 9.8 sec (9.0-12.0)
--- NOTE | 2020-01-18 02:49 | XR ---
EXAM: XR Chest, 2 Views CLINICAL HISTORY: ITS.REASON XR Reason: Chest Pain TECHNIQUE: Frontal and lateral views of the chest. COMPARISON: CXR 07/16/17 FINDINGS: Lungs: Unremarkable. No consolidation. Pleural space: Unremarkable. No pleural effusion or pneumothorax. Heart: Unremarkable. No cardiomegaly or pulmonary vascular congestion. Mediastinum: Unremarkable. Bones/joints: Unremarkable. IMPRESSION: No evidence of acute cardiopulmonary disease.
[2020-01-18] MEDS ORDERED: POTASSIUM CHLORIDE ER 20 MEQ TAB.ER PO STA (02:56)
[2020-01-18 03:29] VITALS: BP 106/82; PULSE 82; TEMP 98.2
== END 2020-01-18 03:20 | disposition home or self-care (01) ==
LOC: EC 01:28
DX: R07.89 Other chest pain (principal); R11.0 Nausea; Z88.8 Allergy status to other drugs, medicaments and biological substances; Z87.891 Personal history of nicotine dependence
CPT/HCPCS: 36415; 93005; 85379; 83880; 80053; 82550; 83690; 83735; 84443; 84484; 85025; 85610; 85730; 71046; 99285; 96374; 96361; J2060

== ENCOUNTER 2020-05-29 15:36 | Emergency (ER) | payer BC ==
[2020-05-29] MEDS ORDERED: methylPREDNISolone SOD SUCCI 125 MG/2 ML VIAL IV STA (15:56)
[2020-05-29] MEDS ORDERED: SODIUM CHLORIDE 0.9% 1,000 ML IV STA (15:56)
[2020-05-29] MEDS ORDERED: FAMOTIDINE 20 MG/2 ML VIAL IV STA (15:56)
[2020-05-29 16:00] VITALS: RESP 18; TEMP 98.3
--- NOTE | 2020-05-29 16:02 | ED ---
General Adult HPI - General Stated complaint: allergic reaction Time Seen by Provider: 05/29/20 15:39 - History of Present Illness Initial comments: 34 year-old female patient presents to the emergency department for evaluation of rash and chest discomfort. Patient states that she has been on two courses of penicillin for dental work. States that she developed hives on Monday over her body. States that she has rash today around her belly button. States this started this morning along with nausea. Denies any shortness of breath or vomiting. Denies any lip or tongue swelling. Denies throat swelling but feels like it is difficult to swallow. She did have a negative rapid COVID test this morning. Patient denies any fever, chills, cough, abdominal pain, diarrhea, constipation, back pain, numbness, tingling, dizziness, weakness, hematuria, dysuria, urinary urgency, urinary frequency, headache, visual changes, or any other complaints. - Related Data Home Medications Medication Instructions Recorded Confirmed Amoxicillin 875 mg PO Q12HR 05/29/20 05/29/20 Chlorhexidine Gluconate [Peridex] 15 ml PO BID 05/29/20 05/29/20 Ibuprofen [Motrin] 800 mg PO Q8H PRN 05/29/20 05/29/20 Previous Rx's Medication Instructions Recorded Famotidine [Pepcid] 20 mg PO DAILY #3 tablet 05/29/20 predniSONE 50 mg PO DAILY #3 tab 05/29/20 Allergies Allergy/AdvReac Type Severity Reaction Status Date / Time albuterol AdvReac ANXIETY Verified 05/29/20 16:34 Review of Systems ROS Statement: Those systems with pertinent positive or pertinent negative responses have been documented in the HPI. ROS Other: All systems not noted in ROS Statement are negative. Past Medical History Past Medical History: COPD Additional Past Medical History / Comment(s): Murmur when young. History of Any Multi-Drug Resistant Organisms: None Reported Past Surgical History: Appendectomy, Section Additional Past Surgical History / Comment(s): x2 c- scetion, reconstructive nASAL SX Past Anesthesia/Blood Transfusion Reactions: No Reported Reaction Past Psychological History: No Psychological Hx Reported Smoking Status: Former smoker Past Alcohol Use History: Rare Past Drug Use History: None Reported - Past Family History Father History Unknown: Yes General Exam General appearance: alert, in no apparent distress, other (Physical well- developed, well-nourished adult female patient in no acute distress.) Eye exam: Present: normal appearance, PERRL, EOMI. Absent: scleral icterus, conjunctival injection, periorbital swelling ENT exam: Present: normal exam, normal oropharynx, mucous membranes moist Respiratory exam: Present: normal lung sounds bilaterally. Absent: respiratory distress, wheezes, rales, rhonchi, stridor Cardiovascular Exam: Present: regular rate, normal rhythm, normal heart sounds. Absent: systolic murmur, diastolic murmur, rubs, gallop, clicks GI/Abdominal exam: Present: soft, normal bowel sounds. Absent: distended, tenderness, guarding, rebound, rigid Neurological exam: Present: alert, oriented X3, CN II-XII intact Psychiatric exam: Present: normal affect, normal mood Skin exam: Present: warm, dry, intact, normal color, rash (urticaria noted around the umbilicus. Erythematous welts, no vesicles. ) Course Vital Signs 05/29/20 05/29/20 15:58 17:31 Temperature 98.3 F Pulse Rate 79 87 Respiratory 18 18 Rate Blood Pressure 124/69 117/74 O2 Sat by Pulse 98 98 Oximetry EKG Findings - EKG Comments: EKG Findings:: EKG obtained at 1606 shows normal sinus rhythm with ventricular 79, DC interval 144, QRS duration 84, QT 408, QTC 467. No evidence of ST elevation or depression. Medical Decision Making - Medical Decision Making 34 year-old female patient presented to the emergency department today for eval uation of hives, chest discomfort. Physical examination did reveal hives around the umbilicus. No lip or tongue swelling was noted. Vital signs within normal ranges. Labs reviewed and did reveal normal white blood cell count, normal troponin. Chest x-ray is negative. EKG was unremarkable. I did discuss findings and results with the patient. Upon reevaluation she is resting comfortably in bed states she feels much better after receiving steroids. She'll be discharged home with three-day prescription for prednisone and Pepcid. Instructed father primary care physician for recheck in 1-2 days. Return parameters discussed in detail. She verbalizes understanding and agrees with this plan. - Lab Data Result diagrams: 05/29/20 16:00 05/29/20 16:00 Lab Results 05/29/20 05/29/2005/29/21 Range/Units 16:00 16:00 16:00 WBC 9.7 (3.8-10.6) k/uL RBC 5.10 (3.80-5.40) m/uL Hgb 14.3 (11.4-16.0) gm/dL Hct 43.4 (34.0-46.0) % MCV 85.2 (80.0-100.0) fL MCH 28.2 (25.0-35.0) pg MCHC 33.0 (31.0-37.0) g/dL RDW 12.9 (11.5-15.5) % Plt Count 224 (150-450) k/uL MPV 7.7 Neutrophils % 76 % Lymphocytes % 18 % Monocytes % 3 % Eosinophils % 2 % Basophils % 0 % Neutrophils # 7.4 (1.3-7.7) k/uL Lymphocytes # 1.7 (1.0-4.8) k/uL Monocytes # 0.3 (0-1.0) k/uL Eosinophils # 0.2 (0-0.7) k/uL Basophils # 0.0 (0-0.2) k/uL PT 10.0 (9.0-12.0) sec INR 0.9 (<1.2) APTT 22.9 (22.0-30.0) sec Sodium 136 L (137-145) mmol/L Potassium 3.7 (3.5-5.1) mmol/L Chloride 103 (98-107) mmol/L Carbon Dioxide 25 (22-30) mmol/L Anion Gap 8 mmol/L BUN 8 (7-17) mg/dL Creatinine 0.80 (0.52-1.04) mg/dL Est GFR (CKD-EPI)AfAm >90 (>60 ml/min/1.73 sqM) Est GFR (CKD-EPI)NonAf >90 (>60 ml/min/1.73 sqM) Glucose 81 (74-99) mg/dL Calcium 9.1 (8.4-10.2) mg/dL Magnesium 1.7 (1.6-2.3) mg/dL Total Bilirubin 0.6 (0.2-1.3) mg/dL AST 31 (14-36) U/L ALT 35 H (4-34) U/L Alkaline Phosphatase 70 (38-126) U/L Troponin I (0.000-0.034) ng/mL Total Protein 6.8 (6.3-8.2) g/dL Albumin 4.1 (3.5-5.0) g/dL 05/29/20 Range/Units 16:01 WBC (3.8-10.6) k/uL RBC (3.80-5.40) m/uL Hgb (11.4-16.0) gm/dL Hct (34.0-46.0) % MCV (80.0-100.0) fL MCH (25.0-35.0) pg MCHC (31.0-37.0) g/dL RDW (11.5-15.5) % Plt Count (150-450) k/uL MPV Neutrophils % % Lymphocytes % % Monocytes % % Eosinophils % % Basophils % % Neutrophils # (1.3-7.7) k/uL Lymphocytes # (1.0-4.8) k/uL Monocytes # (0-1.0) k/uL Eosinophils # (0-0.7) k/uL Basophils # (0-0.2) k/uL PT (9.0-12.0) sec INR (<1.2) APTT (22.0-30.0) sec Sodium (137-145) mmol/L Potassium (3.5-5.1) mmol/L Chloride (98-107) mmol/L Carbon Dioxide (22-30) mmol/L Anion Gap mmol/L BUN (7-17) mg/dL Creatinine (0.52-1.04) mg/dL Est GFR (CKD-EPI)AfAm (>60 ml/min/1.73 sqM) Est GFR (CKD-EPI)NonAf (>60 ml/min/1.73 sqM) Glucose (74-99) mg/dL Calcium (8.4-10.2) mg/dL Magnesium (1.6-2.3) mg/dL Total Bilirubin (0.2-1.3) mg/dL AST (14-36) U/L ALT (4-34) U/L Alkaline Phosphatase (38-126) U/L Troponin I <0.012 (0.000-0.034) ng/mL Total Protein (6.3-8.2) g/dL Albumin (3.5-5.0) g/dL - Radiology Data Radiology results: report reviewed, image reviewed Two-view x-ray of the chest is obtained. Report is reviewed in its entirety. Impression by Dr. Vallecillo shows no acute cardiopulmonary process. Disposition Clinical Impression: Allergic reaction, Chest pain Disposition: HOME SELF-CARE Condition: Good Instructions (If sedation given, give patient instructions): Chest Pain (ED), Urticaria (ED), General Allergic Reaction (ED) Additional Instructions: Take medications as directed. Follow-up with your dentist and primary care physician for recheck as soon as possible. Return to the emergency department for any new, worsening, or concerning symptoms. Prescriptions: Famotidine [Pepcid] 20 mg PO DAILY #3 tablet predniSONE 50 mg PO DAILY #3 tab Is patient prescribed a controlled substance at d/c from ED?: No Referrals: Rosa Lozano MD [Primary Care Provider] - 1-2 days Time of Disposition: 17:08
[2020-05-29 16:11] LABS: Basophils % (A) 0 %; Eosinophils # (A) 0.2 k/uL (0-0.7); Eosinophils % (A) 2 %; HCT 43.4 % (34.0-46.0); HGB 14.3 gm/dL (11.4-16.0); Lymphocytes # (A) 1.7 k/uL (1.0-4.8); Lymphocytes % (A) 18 %; MCH 28.2 pg (25.0-35.0); MCV 85.2 fL (80.0-100.0); Mean Platelet Volume 7.7; Monocytes # (A) 0.3 k/uL (0-1.0); Monocytes % (A) 3 %; Neutrophils # (A) 7.4 k/uL (1.3-7.7); Neutrophils % (A) 76 %; Platelet Count 224 k/uL (150-450); RDW 12.9 % (11.5-15.5); WBC 9.7 k/uL (3.8-10.6)
[2020-05-29 16:21] LABS: INR 0.9 (<1.2); Partial Thromboplastin Time 22.9 sec (22.0-30.0)
[2020-05-29 16:26] LABS: ALT 35 U/L (4-34); AST 31 U/L (14-36); African American GFR (CKD) >90 (>60 ml/min/1.73 sqM); Albumin 4.1 g/dL (3.5-5.0); Alkaline Phosphatase 70 U/L (38-126); Anion Gap 8 mmol/L; Blood Urea Nitrogen 8 mg/dL (7-17); Calcium 9.1 mg/dL (8.4-10.2); Carbon Dioxide 25 mmol/L (22-30); Chloride 103 mmol/L (98-107); Glucose 81 mg/dL (74-99); Magnesium 1.7 mg/dL (1.6-2.3); Non-African American GFR(CKD) >90 (>60 ml/min/1.73 sqM); Potassium 3.7 mmol/L (3.5-5.1); Sodium 136 mmol/L (137-145); Total Bilirubin 0.6 mg/dL (0.2-1.3); Total Protein 6.8 g/dL (6.3-8.2)
--- NOTE | 2020-05-29 16:35 | XR ---
EXAMINATION TYPE: XR chest 2V DATE OF EXAM: 05/29/2020 COMPARISON: 01/18/2020 HISTORY: 34-year-old female with chest pain TECHNIQUE: PA and lateral views FINDINGS: The cardiomediastinal silhouette, aorta, and pulmonary vasculature are within normal limits. Hazy low er lung densities relating to overlying soft tissue. No nichole consolidation or pleural effusion. IMPRESSION: No acute cardiopulmonary process.
[2020-05-29 17:32] VITALS: BP 117/74; PULSE 87
== END 2020-05-29 17:32 | disposition home or self-care (01) ==
LOC: EC 15:36
DX: T78.40XA Allergy, unspecified, initial encounter (principal); R07.9 Chest pain, unspecified; Z79.899 Other long term (current) drug therapy; Z88.8 Allergy status to other drugs, medicaments and biological substances; Z87.891 Personal history of nicotine dependence
CPT/HCPCS: 36415; 93005; 80053; 83735; 84484; 85025; 85610; 85730; 71046; 99284; 96374; 96375; 96361 ×2; J2930

== ENCOUNTER 2020-06-06 10:15 | Emergency (ER) | payer BC ==
[2020-06-06 10:18] VITALS: TEMP 97.5
[2020-06-06] MEDS ORDERED: MORPHINE SULFATE 4 MG/ML SYRINGE IV STA (10:28)
[2020-06-06] MEDS ORDERED: ONDANSETRON 4 MG/2 ML VIAL IVP STA (10:28)
[2020-06-06] MEDS ORDERED: SODIUM CHLORIDE 0.9% 1,000 ML IV STA (10:28)
--- NOTE | 2020-06-06 10:30 | ED ---
General Adult HPI - General Chief complaint: Back Pain/Injury Stated complaint: Abd Pain Time Seen by Provider: 06/06/20 10:21 Source: patient, RN notes reviewed Mode of arrival: wheelchair Limitations: no limitations - History of Present Illness Initial comments: Patient is a 34-year-old female that presents to the emergency department with left flank pain. She notes that she went to the urgent care and they sent him here due to having blood in her urine. She notes that she does not have a history of kidney stones but recently had a urinary tract infection history with antibiotics. She notes that the pain got significantly worse last night she took Motrin 600 and a gas pill which alleviated the symptoms enough where she can function. She noted she woke up this morning pain increased again she took Motrin 600 and a Gastrografin but it did not alleviate the symptoms but he did previously. She was in visible discomfort and pain while sitting up in bed during exam and interview. She did report that she felt nauseous. She denied any chest pain shortness of breath headache vomiting diarrhea constipation fever fatigue chills dysuria history of kidney infections. - Related Data Home Medications Medication Instructions Recorded Confirmed Amoxicillin 875 mg PO Q12HR 05/29/20 05/29/20 Chlorhexidine Gluconate [Peridex] 15 ml PO BID 05/29/20 05/29/20 Ibuprofen [Motrin] 800 mg PO Q8H PRN 05/29/20 05/29/20 Previous Rx's Medication Instructions Recorded Famotidine [Pepcid] 20 mg PO DAILY #3 tablet 05/29/20 predniSONE 50 mg PO DAILY #3 tab 05/29/20 Ciprofloxacin HCl [Cipro] 500 mg PO Q12HR #10 tablet 06/06/20 Allergies Allergy/AdvReac Type Severity Reaction Status Date / Time Penicillins AdvReac Severe Rapid Verified 06/06/20 11:00 Heart Rate albuterol AdvReac ANXIETY Verified 06/06/20 10:16 Review of Systems ROS Statement: Those systems with pertinent positive or pertinent negative responses have been documented in the HPI. ROS Other: All systems not noted in ROS Statement are negative. Past Medical History Past Medical History: COPD Additional Past Medical History / Comment(s): Murmur when young. History of Any Multi-Drug Resistant Organisms: None Reported Past Surgical History: Appendectomy, Section Additional Past Surgical History / Comment(s): x2 c- scetion, reconstructive n SERINA SX Past Anesthesia/Blood Transfusion Reactions: No Reported Reaction Past Psychological History: No Psychological Hx Reported Smoking Status: Former smoker Past Alcohol Use History: Rare Past Drug Use History: None Reported - Past Family History Father History Unknown: Yes General Exam Limitations: no limitations General appearance: alert, in distress (Secondary to pain) Head exam: Present: atraumatic, normocephalic, normal inspection Eye exam: Present: normal appearance, PERRL, EOMI. Absent: scleral icterus, conjunctival injection, periorbital swelling Neck exam: Present: normal inspection. Absent: tenderness, meningismus, lymphadenopathy Respiratory exam: Present: normal lung sounds bilaterally. Absent: respiratory distress, wheezes, rales, rhonchi, stridor Cardiovascular Exam: Present: regular rate, normal rhythm, normal heart sounds. Absent: systolic murmur, diastolic murmur, rubs, gallop, clicks GI/Abdominal exam: Present: soft, tenderness (Left lower quadrant), normal bowel sounds. Absent: distended, guarding, rebound, rigid Extremities exam: Present: normal inspection, full ROM, normal capillary refill. Absent: tenderness, pedal edema, joint swelling, calf tenderness Back exam: Present: normal inspection, CVA tenderness (L) Neurological exam: Present: alert, oriented X3, CN II-XII intact Psychiatric exam: Present: normal affect, normal mood Skin exam: Present: warm, dry, intact, normal color. Absent: rash Course Vital Signs 06/06/20 10:16 Temperature 97.5 F L Pulse Rate 68 Respiratory 16 Rate Blood Pressure 138/74 O2 Sat by Pulse 96 Oximetry Medical Decision Making - Medical Decision Making 34-year-old female complaining of left flank pain times several days. Labs, 1 L normal saline, 4 mg of morphine, 4 mg of Zofran, CT of the abdomen and pelvis ordered. Labs: Elevated white count at 14.9 Urinalysis shows few white blood cells and bacteria. Case discussed with Dr. Diaz, patient can discharge home with antibiotics and await culture results. - Lab Data Result diagrams: 06/06/20 10:49 06/06/20 10:49 Lab Results 06/06/20 06/06/20 06/06/20 Range/Units 10:49 10:49 10:49 WBC 14.9 H (3.8-10.6) k/uL RBC 5.17 (3.80-5.40) m/uL Hgb 15.3 (11.4-16.0) gm/dL Hct 43.4 (34.0-46.0) % MCV 84.0 (80.0-100.0) fL MCH 29.6 (25.0-35.0) pg MCHC 35.2 (31.0-37.0) g/dL RDW 12.2 (11.5-15.5) % Plt Count 229 (150-450) k/uL MPV 7.2 Neutrophils % 86 % Lymphocytes % 8 % Monocytes % 3 % Eosinophils % 3 % Basophils % 0 % Neutrophils # 12.7 H (1.3-7.7) k/uL Lymphocytes # 1.2 (1.0-4.8) k/uL Monocytes # 0.4 (0-1.0) k/uL Eosinophils # 0.4 (0-0.7) k/uL Basophils # 0.1 (0-0.2) k/uL Sodium (137-145) mmol/L Potassium (3.5-5.1) mmol/L Chloride (98-107) mmol/L Carbon Dioxide (22-30) mmol/L Anion Gap mmol/L BUN (7-17) mg/dL Creatinine (0.52-1.04) mg/dL Est GFR (CKD-EPI)AfAm (>60 ml/min/1.73 sqM) Est GFR (CKD-EPI)NonAf (>60 ml/min/1.73 sqM) Glucose (74-99) mg/dL Calcium (8.4-10.2) mg/dL Total Bilirubin (0.2-1.3) mg/dL AST (14-36) U/L ALT (4-34) U/L Alkaline Phosphatase (38-126) U/L Total Protein (6.3-8.2) g/dL Albumin (3.5-5.0) g/dL Amylase (30-110) U/L Lipase (23-300) U/L Urine Color Light Yellow Urine Appearance Clear (Clear) Urine pH 6.0 (5.0-8.0) Ur Specific [place] >1.050 H (1.001-1.035) Urine Protein Negative (Negative) Urine Glucose (UA) Negative (Negative) Urine Ketones Negative (Negative) Urine Blood Small H (Negative) Urine Nitrite Negative (Negative) Urine Bilirubin Negative (Negative) Urine Urobilinogen <2.0 (<2.0) mg/dL Ur Leukocyte Esterase Moderate H (Negative) Urine RBC 3 (0-5) /hpf Urine WBC 19 H (0-5) /hpf Ur Squamous Epith Cells 7 H (0-4) /hpf Urine Bacteria Occasional H (None) /hpf Urine Mucus Rare H (None) /hpf Urine HCG, Qual Not Detected (Not Detectd) 06/06/20 Range/Units 10:49 WBC (3.8-10.6) k/uL RBC (3.80-5.40) m/uL Hgb (11.4-16.0) gm/dL Hct (34.0-46.0) % MCV (80.0-100.0) fL MCH (25.0-35.0) pg MCHC (31.0-37.0) g/dL RDW (11.5-15.5) % Plt Count (150-450) k/uL MPV Neutrophils % % Lymphocytes % % Monocytes % % Eosinophils % % Basophils % % Neutrophils # (1.3-7.7) k/uL Lymphocytes # (1.0-4.8) k/uL Monocytes # (0-1.0) k/uL Eosinophils # (0-0.7) k/uL Basophils # (0-0.2) k/uL Sodium 140 (137-145) mmol/L Potassium 4.5 (3.5-5.1) mmol/L Chloride 109 H (98-107) mmol/L Carbon Dioxide 22 (22-30) mmol/L Anion Gap 9 mmol/L BUN 14 (7-17) mg/dL Creatinine 0.78 (0.52-1.04) mg/dL Est GFR (CKD-EPI)AfAm >90 (>60 ml/min/1.73 sqM) Est GFR (CKD-EPI)NonAf >90 (>60 ml/min/1.73 sqM) Glucose 87 (74-99) mg/dL Calcium 8.9 (8.4-10.2) mg/dL Total Bilirubin 1.0 (0.2-1.3) mg/dL AST 28 (14-36) U/L ALT 30 (4-34) U/L Alkaline Phosphatase 74 (38-126) U/L Total Protein 7.0 (6.3-8.2) g/dL Albumin 4.1 (3.5-5.0) g/dL Amylase 39 (30-110) U/L Lipase 27 (23-300) U/L Urine Color Urine Appearance (Clear) Urine pH (5.0-8.0) Ur Specific [place] (1.001-1.035) Urine Protein (Negative) Urine Glucose (UA) (Negative) Urine Ketones (Negative) Urine Blood (Negative) Urine Nitrite (Negative) Urine Bilirubin (Negative) Urine Urobilinogen (<2.0) mg/dL Ur Leukocyte Esterase (Negative) Urine RBC (0-5) /hpf Urine WBC (0-5) /hpf Ur Squamous Epith Cells (0-4) /hpf Urine Bacteria (None) /hpf Urine Mucus (None) /hpf Urine HCG, Qual (Not Detectd) - Radiology Data Radiology results: report reviewed, image reviewed CT of the abdomen and pelvis: No significant abnormality seen. Disposition Clinical Impression: Urinary tract infection Disposition: HOME SELF-CARE Condition: Stable Instructions (If sedation given, give patient instructions): Urinary Tract Infection in Women (ED) Additional Instructions: Please return to the Emergency Department if symptoms worsen or any other concerns. Take antibiotics as prescribed until complete. Follow-up with primary care in 3-5 days. Continue to take Motrin and Tylenol alternating every few hours for pain con trol. Increase fluid intake. Prescriptions: Ciprofloxacin HCl [Cipro] 500 mg PO Q12HR #10 tablet Is patient prescribed a controlled substance at d/c from ED?: No Referrals: Rosa Lozano MD [Primary Care Provider] - 1-2 days Time of Disposition: 13:22
[2020-06-06 11:03] LABS: Basophils # (A) 0.1 k/uL (0-0.2); Basophils % (A) 0 %; Eosinophils # (A) 0.4 k/uL (0-0.7); Eosinophils % (A) 3 %; HCT 43.4 % (34.0-46.0); HGB 15.3 gm/dL (11.4-16.0); Lymphocytes # (A) 1.2 k/uL (1.0-4.8); Lymphocytes % (A) 8 %; MCH 29.6 pg (25.0-35.0); MCHC 35.2 g/dL (31.0-37.0); Mean Platelet Volume 7.2; Monocytes # (A) 0.4 k/uL (0-1.0); Monocytes % (A) 3 %; Neutrophils # (A) 12.7 k/uL (1.3-7.7); Neutrophils % (A) 86 %; Platelet Count 229 k/uL (150-450); RBC 5.17 m/uL (3.80-5.40); RDW 12.2 % (11.5-15.5); WBC 14.9 k/uL (3.8-10.6)
[2020-06-06 11:21] LABS: ALT 30 U/L (4-34); AST 28 U/L (14-36); African American GFR (CKD) >90 (>60 ml/min/1.73 sqM); Albumin 4.1 g/dL (3.5-5.0); Alkaline Phosphatase 74 U/L (38-126); Amylase 39 U/L (30-110); Anion Gap 9 mmol/L; Blood Urea Nitrogen 14 mg/dL (7-17); Calcium 8.9 mg/dL (8.4-10.2); Carbon Dioxide 22 mmol/L (22-30); Chloride 109 mmol/L (98-107); Glucose 87 mg/dL (74-99); Lipase 27 U/L (23-300); Non-African American GFR(CKD) >90 (>60 ml/min/1.73 sqM); Potassium 4.5 mmol/L (3.5-5.1); Sodium 140 mmol/L (137-145)
--- NOTE | 2020-06-06 12:00 | CT ---
EXAMINATION TYPE: CT abdomen pelvis w con DATE OF EXAM: 06/06/2020 COMPARISON: None HISTORY: hematuria, difficult or decreased urination CT DLP: 1007.3 mGycm Automated exposure control for dose reduction was used. TECHNIQUE: Helical acquisition of images was performed from the lung bases through the pelvis. CONTRAST: Performed without Oral Contrast and with IV Contrast, patient injected with 100 mL of Isovue 300. FINDINGS: The lung bases are clear. The gallbladder is normal. There is no biliary ductal dilatation. The liver, pancreas, spleen and adrenal glands are normal. The kidneys excrete contrast promptly and symmetrically and there is no solid renal mass or hydroneph rosis. There is no retroperitoneal adenopathy or hemorrhage in the caliber of the abdominal aorta is normal. There are postsurgical changes in the region of the terminal ileum. The bowel loops are normal in [place] iber and there is no evidence of dilatation or obstruction. No inflammatory changes are identified in the mesentery and there is no free intraperitoneal air or fluid. There is no pelvic mass, free fluid or adenopathy. There is an IUD. IMPRESSION: No significant abnormality seen.
[2020-06-06] MEDS ORDERED: MORPHINE SULFATE 4 MG/ML SYRINGE IVP STA (12:36)
[2020-06-06 13:01] LABS: Appearance,Urine Clear (Clear); Bacteria,Urine Occasional /hpf; Bilirubin,Urine Negative (Negative); Blood,Urine Small (Negative); Color,Urine Light Yellow; Glucose,Urine (UA) Negative (Negative); Ketones,Urine Negative (Negative); Leukocyte Esterase,Urine Moderate (Negative); Mucus,Urine Rare /hpf; Nitrite,Urine Negative (Negative); Protein,Urine Negative (Negative); RBC,Urine 3 /hpf (0-5); Squamous Epithelial Cell,Urine 7 /hpf (0-4); Urobilinogen,Urine <2.0 mg/dL (<2.0); WBC,Urine 19 /hpf (0-5)
[2020-06-06 13:03] LABS: Specific Gravity,Urine >1.050 (1.001-1.035)
[2020-06-06 13:51] VITALS: BP 113/77; PULSE 80; RESP 18
== END 2020-06-06 13:50 | disposition home or self-care (01) ==
LOC: EC 10:15
DX: N39.0 Urinary tract infection, site not specified (principal); J44.9 Chronic obstructive pulmonary disease, unspecified; Z87.891 Personal history of nicotine dependence; Z90.49 Acquired absence of other specified parts of digestive tract
CPT/HCPCS: 36415; 80053; 82150; 83690; 85025; 81001; 81025; 87086; 74177; 99284; 96374; 96375; 96376; 96361 ×3; J2270; J2405; Q9967

== ENCOUNTER 2020-06-22 16:41 | Emergency (ER) | payer BC ==
[2020-06-22] MEDS ORDERED: HYDROmorphone 1 MG/ML 1 ML SYRINGE IVP STA ×3 (17:33→22:56)
[2020-06-22] MEDS ORDERED: ONDANSETRON 4 MG/2 ML VIAL IVP STA (17:33)
[2020-06-22] MEDS ORDERED: SODIUM CHLORIDE 0.9% 1,000 ML IV STA (17:33)
[2020-06-22 17:42] LABS: Basophils % (A) 0 %; Eosinophils # (A) 0.3 k/uL (0-0.7); Eosinophils % (A) 3 %; HCT 41.6 % (34.0-46.0); HGB 14.6 gm/dL (11.4-16.0); Lymphocytes # (A) 1.7 k/uL (1.0-4.8); Lymphocytes % (A) 15 %; MCH 29.5 pg (25.0-35.0); MCV 84.3 fL (80.0-100.0); Mean Platelet Volume 7.2; Monocytes # (A) 0.3 k/uL (0-1.0); Monocytes % (A) 3 %; Neutrophils # (A) 8.7 k/uL (1.3-7.7); Neutrophils % (A) 78 %; Platelet Count 211 k/uL (150-450); RBC 4.93 m/uL (3.80-5.40); RDW 12.6 % (11.5-15.5); WBC 11.2 k/uL (3.8-10.6)
[2020-06-22 17:51] LABS: ALT 24 U/L (4-34); AST 29 U/L (14-36); African American GFR (CKD) >90 (>60 ml/min/1.73 sqM); Alkaline Phosphatase 72 U/L (38-126); Amylase 48 U/L (30-110); Anion Gap 7 mmol/L; Blood Urea Nitrogen 14 mg/dL (7-17); Calcium 9.2 mg/dL (8.4-10.2); Carbon Dioxide 24 mmol/L (22-30); Chloride 109 mmol/L (98-107); Glucose 113 mg/dL (74-99); Lipase 65 U/L (23-300); Non-African American GFR(CKD) >90 (>60 ml/min/1.73 sqM); Potassium 3.8 mmol/L (3.5-5.1); Sodium 140 mmol/L (137-145); Total Bilirubin 0.3 mg/dL (0.2-1.3); Total Protein 6.7 g/dL (6.3-8.2)
--- NOTE | 2020-06-22 18:05 | ED ---
General Adult HPI - General Source: patient, RN notes reviewed Mode of arrival: wheelchair Limitations: no limitations <Blaze Bernal - Last Filed: 06/22/20 18:02> <Abbie Owens - Last Filed: 06/22/20 23:37> - General Chief complaint: Back Pain/Injury Stated complaint: back pain Time Seen by Provider: 06/22/20 17:20 - History of Present Illness Initial comments: Patient is a 34-year-old female that presents to the emergency department complaining of left-sided back pain and some left sided abdominal pain. She notes that she was recently seen in the ER with the last month and got a computed tomography scan that showed no kidney stones. She notes that they treated her for a kidney infection with antibiotics due to blood in her urine. She notes that the antibiotics seem to help a little bit but she is still experiencing significant amount pain. She notes she took 2 Motrin 600s before arriving to the ER that only slightly touched the pain. She notes the pain is still approximately 9-10 out of 10 with no relief. She notes that she was talking to her [facility] MAN and primary care and stated that she should come to the emergency room to get evaluated again her computed tomography scan. Patient was well-hydrated and well-developed but didn't appear to be in moderate amount of discomfort and pain while sitting in bed during the exam interview. She denied any chest pain shortness of breath headache diarrhea constipation fever fatigue chills. (Blaze Bernal) - Related Data Home Medications Medication Instructions Recorded Confirmed Ibuprofen [Motrin Ib] 800 mg PO Q8H PRN 06/22/20 06/22/20 Sugar Bear Hair Vitamin 1 tab PO DAILY 06/22/20 06/22/20 Zzzquil Diphenhydramine 50mg 50 mg PO HS 06/22/20 06/22/20 Allergies Allergy/AdvReac Type Severity Reaction Status Date / Time Penicillins AdvReac Severe Rapid Verified 06/22/20 20:18 Heart Rate albuterol AdvReac ANXIETY Verified 06/22/20 20:18 Review of Systems ROS Other: All systems not noted in ROS Statement are negative. <Blaze Bernal - Last Filed: 06/22/20 18:02> ROS Other: All systems not noted in ROS Statement are negative. <Abbie Owens - Last Filed: 06/22/20 23:37> ROS Statement: Those systems with pertinent positive or pertinent negative responses have been documented in the HPI. Past Medical History Past Medical History: COPD Additional Past Medical History / Comment(s): Murmur when young. History of Any Multi-Drug Resistant Organisms: None Reported Past Surgical History: Appendectomy, Section Additional Past Surgical History / Comment(s): x2 c- scetion, reconstructive nASAL SX Past Anesthesia/Blood Transfusion Reactions: No Reported Reaction Past Psychological History: No Psychological Hx Reported Smoking Status: Former smoker Past Alcohol Use History: Rare Past Drug Use History: None Reported - Past Family History Father History Unknown: Yes <Blaze Bernal - Last Filed: 06/22/20 18:02> General Exam Limitations: no limitations General appearance: alert, in no apparent distress Head exam: Present: atraumatic, normocephalic, normal inspection Eye exam: Present: normal appearance, PERRL, EOMI. Absent: scleral icterus, conjunctival injection, periorbital swelling Neck exam: Present: normal inspection Respiratory exam: Present: normal lung sounds bilaterally. Absent: respiratory distress, wheezes, rales, rhonchi, stridor Cardiovascular Exam: Present: regular rate, normal rhythm, normal heart sounds. Absent: systolic murmur, diastolic murmur, rubs, gallop, clicks GI/Abdominal exam: Present: soft, tenderness (Left-sided abdominal pain mostly in the left lower quadrant), normal bowel sounds. Absent: distended, guarding, rebound, rigid Extremities exam: Present: normal inspection, full ROM, normal capillary refill. Absent: tenderness, pedal edema, joint swelling, calf tenderness Back exam: Present: normal inspection, CVA tenderness (L) Neurological exam: Present: alert, oriented X3, CN II-XII intact Psychiatric exam: Present: normal affect, normal mood Skin exam: Present: warm, dry, intact, normal color. Absent: rash <Blaze Bernal - Last Filed: 06/22/20 18:02> Course Vital Signs 06/22/20 06/22/20 06/22/20 16:51 17:56 19:04 Temperature 89.2 F L Pulse Rate 96 Respiratory 18 18 18 Rate Blood Pressure 116/84 O2 Sat by Pulse 98 Oximetry 06/22/20 06/22/20 06/22/20 19:12 19:57 21:05 Temperature 98.7 F Pulse Rate 70 Respiratory 20 14 Rate Blood Pressure 115/68 O2 Sat by Pulse 98 Oximetry 06/22/20 06/22/20 21:59 23:24 Temperature 98.7 F Pulse Rate 74 Respiratory 18 14 Rate Blood Pressure 107/64 O2 Sat by Pulse 98 Oximetry Medical Decision Making - Lab Data Result diagrams: 06/22/20 Unknown 06/22/20 Unknown <Blaze Bernal - Last Filed: 06/22/20 18:02> - Lab Data Result diagrams: 06/22/20 Unknown 06/22/20 Unknown - Radiology Data Radiology results: report reviewed, image reviewed <Abbie Owens - Last Filed: 06/22/20 23:37> - Medical Decision Making 34-year-old female complaining of left-sided back pain and some left lower quadrant abdominal pain. Labs, 1 L normal saline, 1 mg of Dilaudid, 4 mg of Zofran, computed tomography scan of the abdomen and pelvis ordered. (Blaze Bernal) 34 year-old female patient I received as a sign out from Blaze Bernal PA-c. I did perform independent history and physical exam. Patient has been having left flank pain that occasionally radiates to her left lower quadrant abdomen for the last couple of weeks. Patient is worse at times. Today worse than usual. She has recently been treated for UTI and dental infections. Denies any urinary symptoms. Denies vomiting, constipation, or diarrhea. Denies any fevers. Does have an IUD. States she has not been sexually active due to the pain. Denies concern for sexually transmitted infections. I did review labs, WBC mildly elevated at 11.1, urinalysis shows 28 white blood cells. Negative HCG. CT abdomen and pelvis was back showed evidence for bilateral ovarian cysts, 3cm on the left, 4cm on the right, also possibility for enteritis vs ileus. I did add US to rule out torsion, this showed hemorrhagic cyst on the right side. Spoke to Dr. Devika mac who requested serum quantitative hCG to rule out ectopic . This was negative. I discussed findings and results with the patient. She is still quite uncomfortable, I offered admission for intractable pain. She would prefer to be discharged. She does have colonoscopy with GI on 06/29/20. She will be given tylenol with codiene starter pack for pain and keflex for UTI. She is instructed to follow-up with her primary care physician for recheck in 1- 2 days per Return parameters are discussed in detail. She verbalizes understanding and agrees with this plan. My attending is Dr. Kelly. (Abbie Owens) - Lab Data Lab Results 06/22/20 06/22/20 06/22/20 Range/Units 17:54 17:54 18:00 WBC (3.8-10.6) k/uL RBC (3.80-5.40) m/uL Hgb (11.4-16.0) gm/dL Hct (34.0-46.0) % MCV (80.0-100.0) fL MCH (25.0-35.0) pg MCHC (31.0-37.0) g/dL RDW (11.5-15.5) % Plt Count (150-450) k/uL MPV Neutrophils % % Lymphocytes % % Monocytes % % Eosinophils % % Basophils % % Neutrophils # (1.3-7.7) k/uL Lymphocytes # (1.0-4.8) k/uL Monocytes # (0-1.0) k/uL Eosinophils # (0-0.7) k/uL Basophils # (0-0.2) k/uL Sodium (137-145) mmol/L Potassium (3.5-5.1) mmol/L Chloride (98-107) mmol/L Carbon Dioxide (22-30) mmol/L Anion Gap mmol/L BUN (7-17) mg/dL Creatinine (0.52-1.04) mg/dL Est GFR (CKD-EPI)AfAm (>60 ml/min/1.73 sqM) Est GFR (CKD-EPI)NonAf (>60 ml/min/1.73 sqM) Glucose (74-99) mg/dL Plasma Lactic Acid Manny (0.7-2.0) mmol/L Calcium (8.4-10.2) mg/dL Total Bilirubin (0.2-1.3) mg/dL AST (14-36) U/L ALT (4-34) U/L Alkaline Phosphatase (38-126) U/L Total Protein (6.3-8.2) g/dL Albumin (3.5-5.0) g/dL Amylase (30-110) U/L Lipase (23-300) U/L HCG, Quant <2.4 mIU/mL Urine Color Yellow Urine Appearance Clear (Clear) Urine pH 6.5 (5.0-8.0) Ur Specific [place] 1.030 (1.001-1.035) Urine Protein Trace H (Negative) Urine Glucose (UA) Negative (Negative) Urine Ketones Negative (Negative) Urine Blood Negative (Negative) Urine Nitrite Negative (Negative) Urine Bilirubin Negative (Negative) Urine Urobilinogen <2.0 (<2.0) mg/dL Ur Leukocyte Esterase Large H (Negative) Urine WBC 28 H (0-5) /hpf Ur Squamous Epith Cells 5 H (0-4) /hpf Urine Bacteria Rare H (None) /hpf Urine Mucus Moderate H (None) /hpf Urine HCG, Qual Not Detected (Not Detectd) 06/22/20 06/22/20 06/22/20 Range/Units Unknown Unknown Unknown WBC 11.2 H (3.8-10.6) k/uL RBC 4.93 (3.80-5.40) m/uL Hgb 14.6 (11.4-16.0) gm/dL Hct 41.6 (34.0-46.0) % MCV 84.3 (80.0-100.0) fL MCH 29.5 (25.0-35.0) pg MCHC 35.0 (31.0-37.0) g/dL RDW 12.6 (11.5-15.5) % Plt Count 211 (150-450) k/uL MPV 7.2 Neutrophils % 78 % Lymphocytes % 15 % Monocytes % 3 % Eosinophils % 3 % Basophils % 0 % Neutrophils # 8.7 H (1.3-7.7) k/uL Lymphocytes # 1.7 (1.0-4.8) k/uL Monocytes # 0.3 (0-1.0) k/uL Eosinophils # 0.3 (0-0.7) k/uL Basophils # 0.0 (0-0.2) k/uL Sodium 140 (137-145) mmol/L Potassium 3.8 (3.5-5.1) mmol/L Chloride 109 H (98-107) mmol/L Carbon Dioxide 24 (22-30) mmol/L Anion Gap 7 mmol/L BUN 14 (7-17) mg/dL Creatinine 0.76 (0.52-1.04) mg/dL Est GFR (CKD-EPI)AfAm >90 (>60 ml/min/1.73 sqM) Est GFR (CKD-EPI)NonAf >90 (>60 ml/min/1.73 sqM) Glucose 113 H (74-99) mg/dL Plasma Lactic Acid Manny 0.8 (0.7-2.0) mmol/L Calcium 9.2 (8.4-10.2) mg/dL Total Bilirubin 0.3 (0.2-1.3) mg/dL AST 29 (14-36) U/L ALT 24 (4-34) U/L Alkaline Phosphatase 72 (38-126) U/L Total Protein 6.7 (6.3-8.2) g/dL Albumin 4.0 (3.5-5.0) g/dL Amylase 48 (30-110) U/L Lipase 65 (23-300) U/L HCG, Quant mIU/mL Urine Color Urine Appearance (Clear) Urine pH (5.0-8.0) Ur Specific [place] (1.001-1.035) Urine Protein (Negative) Urine Glucose (UA) (Negative) Urine Ketones (Negative) Urine Blood (Negative) Urine Nitrite (Negative) Urine Bilirubin (Negative) Urine Urobilinogen (<2.0) mg/dL Ur Leukocyte Esterase (Negative) Urine WBC (0-5) /hpf Ur Squamous Epith Cells (0-4) /hpf Urine Bacteria (None) /hpf Urine Mucus (None) /hpf Urine HCG, Qual (Not Detectd) - Radiology Data CT abdomen and pelvis is obtained. Report reviewed in its entirety. Impression by Dr. Fortune shows adnexal cyst have increased in size. Correlate for possible ileus or enteritis. Postoperative changes. Additional findings above. Ultrasound of the pelvis is obtained. Report was reviewed in its entirety. Impression by Dr. Fortune shows findings may represent a hemorrhagic cyst on the right. Ectopic not thought to be present based on CT findings and beta hCG level, correlate with serial beta hCG for confirmation. Intrauterine contraceptive device is in place. (Abbie Owens) Disposition <Bernal,Blaze - Last Filed: 06/22/20 18:02> Is patient prescribed a controlled substance at d/c from ED?: No Time of Disposition: 22:45 <Abbie Owens - Last Filed: 06/22/20 23:37> Clinical Impression: Ovarian cyst, Back pain, Ileus, UTI (urinary tract infection) Disposition: HOME SELF-CARE Condition: Good Instructions (If sedation given, give patient instructions): Ovarian Cyst (ED), Urinary Tract Infection in Women (ED), Acute Low Back Pain (ED), Ileus (ED) Additional Instructions: Take medications as directed. Follow up with OBGYN and GI specialist as soon as possible. Return for any new, worsening, or concerning symptoms. Referrals: Rosa Lozano MD [Primary Care Provider] - 1-2 days
[2020-06-22 18:07] LABS: Appearance,Urine Clear (Clear); Bacteria,Urine Rare /hpf; Bilirubin,Urine Negative (Negative); Blood,Urine Negative (Negative); Color,Urine Yellow; Glucose,Urine (UA) Negative (Negative); Ketones,Urine Negative (Negative); Leukocyte Esterase,Urine Large (Negative); Mucus,Urine Moderate /hpf; Nitrite,Urine Negative (Negative); PH, Urine 6.5 (5.0-8.0); Protein,Urine Trace (Negative); Squamous Epithelial Cell,Urine 5 /hpf (0-4); Urobilinogen,Urine <2.0 mg/dL (<2.0); WBC,Urine 28 /hpf (0-5)
--- NOTE | 2020-06-22 19:04 | CT ---
EXAMINATION TYPE: CT abdomen pelvis w con DATE OF EXAM: 06/22/2020 COMPARISON: CT 06/06/2020 HISTORY: Left sided flank and pelvic pain with hematuria. CT DLP: 1064.7 mGycm Automated exposure control for dose reduction was used. TECHNIQUE: Helical acquisition of images from the lung bases through the pelvis have been completed. CONTRAST: Performed without Oral Contrast and with IV Contrast, patient injected with 100 mL of Isovue 300. FINDINGS: LUNG BASES: No significant abnormality is appreciated. AORTA: No significant abnormality is appreciated. LIVER/GB: No significant abnormality is appreciated. PANCREAS: No significant abnormality is seen. SPLEEN: No significant abnormality is seen. ADRENALS: No significant abnormality is seen. KIDNEYS: No significant abnormality is seen. REPRODUCTIVE ORGANS: Intrauterine contraceptive device is present as on prior. The right adnexal cyst ic focus has increased in size and now measures approximately 4.4 cm. Cystic focus is also present in the left adnexal region similar to prior may be increased slightly measuring 3 cm. Is likely nabothi an cyst. BOWEL: Surgical clips noted at the cecum as on prior exam, there are fluid-filled loops of small bow el with some areas of wall thickening. FREE AIR: No Free Air visible. ASCITES: None visible. PELVIC ADENOPATHY: None visualized. RETROPERITONEAL ADENOPATHY: No Retroperitoneal Adenopathy visible. URINARY BLADDER: No significant abnormality is seen. OSSEOUS STRUCTURES: Bilateral spondylolysis present at L5, there is anterolisthesis grade 1 L5-S1, t here is associated loss of disc height. IMPRESSION: ADNEXAL CYSTS HAVE INCREASED IN SIZE. CORRELATE FOR POSSIBLE ILEUS OR ENTERITIS. POSTOP CHANGES. Tristin tional findings above.
[2020-06-22 19:12] VITALS: TEMP 98.7
--- NOTE | 2020-06-22 21:47 | US ---
EXAMINATION TYPE: US transvaginal DATE OF EXAM: 06/22/2020 COMPARISON: CT same date and CT 06/06/2020 CLINICAL HISTORY: Ovarian cysts; left lower abd/back pain. Left-sided pain. Hx appendectomy, 2 C-Sec tions. Mirena IUD in place per patient. hx ovarian cyst. . TECHNIQUE: Transvaginal (TV). Date of LMP: Unknown. EXAM MEASUREMENTS: Uterus: 10.5 x 6.5 x 6.0 cm Endometrial Stripe: 0.51 cm Right Ovary: 6.8 x 4.7 x 5.3 cm Left Ovary: Not seen. 1. Uterus: Retroflexed. Measures upper limits of normal versus slightly enlarged. IUD is poorly visu alized. Area of mixed echogenicity seen midline and extending slightly left. This area measures: 2.5 x 3.2 x 2.3 cm. This area appears adjacent to the uterus. Anechoic area with thick hyperechoic border see n. Echogenic, indistinct component seen within. 2. Endometrium: 0.51 cm. 3. Right Ovary: Appears enlarged. Complex area seen measuring 4.8 x 3.0 x 3.3 cm. 4. Left Ovary: Thought to be posterior to the uterus. Spectral, color and waveform doppler imaging shows arterial and venous flow within the right ovary. Left ovary thought to show some color flow. 5. Bilateral Adnexa: Area mentioned above extends slightly left. 6. Posterior cul-de-sac: Fluid seen measuring 1.3 x 2.8 x 0.9 cm. hCG not detected. IMPRESSION: Findings may represent a hemorrhagic cyst on the right. Ectopic not thought to be present based on CT findings and beta hCG level, correlate with serial beta hCG for confirmation. Intrauterine contraceptive device is in place.
[2020-06-22] MEDS ORDERED: ACET/COD 300 MG/30 MG STARTER PACK 6 TAB BTL PO STA (22:45)
[2020-06-22] MEDS ORDERED: CEPHALEXIN 500MG STARTER PACK 4 CAP BTL PO STA (22:56)
[2020-06-22 23:26] VITALS: BP 107/64; PULSE 74; RESP 14
== END 2020-06-22 23:26 | disposition home or self-care (01) ==
LOC: EC 16:41
DX: N83.201 Unspecified ovarian cyst, right side (principal); N39.0 Urinary tract infection, site not specified; K56.7 Ileus, unspecified; Z79.1 Long term (current) use of non-steroidal anti-inflammatories (NSAID); J44.9 Chronic obstructive pulmonary disease, unspecified; Z87.891 Personal history of nicotine dependence; Z88.0 Allergy status to penicillin; Z90.49 Acquired absence of other specified parts of digestive tract; Z97.5 Presence of (intrauterine) contraceptive device
CPT/HCPCS: 36415; 80053; 82150; 83605; 83690; 85025; 81001; 81025; 84702; 87086; 93976; 76830; 74177; 99284; 96374; 96376; 96375; 96361; J2405; J1170; Q9967

== ENCOUNTER 2020-06-30 08:56 | Emergency (ER) | payer BC ==
[2020-06-30 09:03] VITALS: RESP 18
[2020-06-30] MEDS ORDERED: ONDANSETRON 4 MG/2 ML VIAL IVP STA (09:16)
[2020-06-30] MEDS ORDERED: SODIUM CHLORIDE 0.9% 2,000 ML IV STA (09:16)
[2020-06-30] MEDS ORDERED: KETOROLAC 15 MG/ML 1 ML VIAL IVP STA ×2 (09:16→11:15)
[2020-06-30] MEDS ORDERED: HYDROmorphone 0.5 MG/0.5 ML SYRINGE IVP STA (09:16)
[2020-06-30 09:33] LABS: Basophils % (A) 0 %; Eosinophils # (A) 0.4 k/uL (0-0.7); Eosinophils % (A) 4 %; HCT 41.8 % (34.0-46.0); HGB 14.7 gm/dL (11.4-16.0); Lymphocytes # (A) 1.4 k/uL (1.0-4.8); Lymphocytes % (A) 13 %; MCH 29.5 pg (25.0-35.0); MCHC 35.1 g/dL (31.0-37.0); Mean Platelet Volume 7.2; Monocytes # (A) 0.3 k/uL (0-1.0); Monocytes % (A) 3 %; Neutrophils # (A) 8.4 k/uL (1.3-7.7); Neutrophils % (A) 79 %; Platelet Count 184 k/uL (150-450); RBC 4.98 m/uL (3.80-5.40); RDW 12.6 % (11.5-15.5); WBC 10.6 k/uL (3.8-10.6)
--- NOTE | 2020-06-30 09:44 | ED ---
General Adult HPI - General Chief complaint: Urogenital Stated complaint: kidney problems Time Seen by Provider: 06/30/20 09:06 Source: patient, RN notes reviewed Mode of arrival: ambulatory Limitations: no limitations - History of Present Illness Initial comments: 34-year-old female presents emergency Department with chief complaint of left- sided flank pain. Patient's been having on and off symptoms last 3 weeks. Patient states that she's been treated with antibiotics states that makes the pain go away but states does not always away but states that she's been told her urine culture does not grow anything. She's had multiple CAT scans and ultra sound showed ovarian cyst findings. Patient states nothing makes pain feel better or worse. Denies fevers chills admits slight nausea without vomiting no diarrhea no constipation patient's had a prior section, appendectomy and IUD placed. - Related Data Home Medications Medication Instructions Recorded Confirmed Sugar Bear Hair Vitamin 1 tab PO DAILY 06/22/20 06/30/20 Zzzquil Diphenhydramine 50mg 50 mg PO HS 06/22/20 06/30/20 Naproxen 500 mg PO BID 06/30/20 06/30/20 Omeprazole [PriLOSEC] 20 mg PO DAILY 06/30/20 06/30/20 Previous Rx's Medication Instructions Recorded Ketorolac [Toradol] 10 mg PO Q8HR #15 tab 06/30/20 Allergies Allergy/AdvReac Type Severity Reaction Status Date / Time Penicillins AdvReac Severe Rapid Verified 06/30/20 10:20 Heart Rate albuterol AdvReac ANXIETY Verified 06/30/20 10:20 Review of Systems ROS Statement: Those systems with pertinent positive or pertinent negative responses have been documented in the HPI. ROS Other: All systems not noted in ROS Statement are negative. Past Medical History Past Medical History: COPD Additional Past Medical History / Comment(s): Murmur when young. History of Any Multi-Drug Resistant Organisms: None Reported Past Surgical History: Appendectomy, Section Additional Past Surgical History / Comment(s): x2 c- scetion, reconstructive nASAL SX Past Anesthesia/Blood Transfusion Reactions: No Reported Reaction Past Psychological History: No Psychological Hx Reported Smoking Status: Former smoker Past Alcohol Use History: Rare Past Drug Use History: None Reported - Past Family History Father History Unknown: Yes General Exam Limitations: no limitations General appearance: alert, in no apparent distress Head exam: Present: atraumatic, normocephalic, normal inspection Eye exam: Present: normal appearance, PERRL, EOMI. Absent: scleral icterus, conjunctival injection, periorbital swelling ENT exam: Present: normal exam, normal oropharynx, mucous membranes moist Neck exam: Present: normal inspection, full ROM. Absent: tenderness, lymphadenopathy Respiratory exam: Present: normal lung sounds bilaterally. Absent: respiratory distress, wheezes, rales, rhonchi, stridor Cardiovascular Exam: Present: regular rate, normal rhythm, normal heart sounds. Absent: systolic murmur, diastolic murmur, rubs, gallop, clicks GI/Abdominal exam: Present: soft, normal bowel sounds. Absent: distended, tenderness, guarding, rebound, rigid Back exam: Absent: CVA tenderness (R), CVA tenderness (L) Neurological exam: Present: alert Skin exam: Present: warm, dry, intact, normal color. Absent: rash Course Vital Signs 06/30/20 08:59 Temperature 98 F Pulse Rate 72 Respiratory 18 Rate Blood Pressure 135/91 O2 Sat by Pulse 100 Oximetry Medical Decision Making - Medical Decision Making 34-year-old female presents emergency department for flank pain. Workup this time is negative other than she does have a right ovarian cysts. She may be having some referred pain. Patient does have an appointment with urology tomorrow at 2 PM. Patient advised follow-up with [facility]. There is no concern for torsion at this time. Return parameters were discussed. - Lab Data Result diagrams: 06/30/20 09:19 06/30/20 09:19 Lab Results 06/30/20 06/30/20 06/30/20 Range/Units 09:19 09:19 09:19 WBC 10.6 (3.8-10.6) k/uL RBC 4.98 (3.80-5.40) m/uL Hgb 14.7 (11.4-16.0) gm/dL Hct 41.8 (34.0-46.0) % MCV 84.0 (80.0-100.0) fL MCH 29.5 (25.0-35.0) pg MCHC 35.1 (31.0-37.0) g/dL RDW 12.6 (11.5-15.5) % Plt Count 184 (150-450) k/uL MPV 7.2 Neutrophils % 79 % Lymphocytes % 13 % Monocytes % 3 % Eosinophils % 4 % Basophils % 0 % Neutrophils # 8.4 H (1.3-7.7) k/uL Lymphocytes # 1.4 (1.0-4.8) k/uL Monocytes # 0.3 (0-1.0) k/uL Eosinophils # 0.4 (0-0.7) k/uL Basophils # 0.0 (0-0.2) k/uL Sodium (137-145) mmol/L Potassium (3.5-5.1) mmol/L Chloride (98-107) mmol/L Carbon Dioxide (22-30) mmol/L Anion Gap mmol/L BUN (7-17) mg/dL Creatinine (0.52-1.04) mg/dL Est GFR (CKD-EPI)AfAm (>60 ml/min/1.73 sqM) Est GFR (CKD-EPI)NonAf (>60 ml/min/1.73 sqM) Glucose (74-99) mg/dL Plasma Lactic Acid Manny (0.7-2.0) mmol/L Calcium (8.4-10.2) mg/dL Total Bilirubin (0.2-1.3) mg/dL AST (14-36) U/L ALT (4-34) U/L Alkaline Phosphatase (38-126) U/L Total Protein (6.3-8.2) g/dL Albumin (3.5-5.0) g/dL Amylase (30-110) U/L Lipase (23-300) U/L Urine Color Yellow Urine Appearance Clear (Clear) Urine pH 6.5 (5.0-8.0) Ur Specific [place] 1.030 (1.001-1.035) Urine Protein Trace H (Negative) Urine Glucose (UA) Negative (Negative) Urine Ketones Negative (Negative) Urine Blood Small H (Negative) Urine Nitrite Negative (Negative) Urine Bilirubin Negative (Negative) Urine Urobilinogen <2.0 (<2.0) mg/dL Ur Leukocyte Esterase Trace H (Negative) Urine RBC 2 (0-5) /hpf Urine WBC 4 (0-5) /hpf Ur Squamous Epith Cells 3 (0-4) /hpf Urine Mucus Moderate H (None) /hpf Urine HCG, Qual Not Detected (Not Detectd) 06/30/20 06/30/20 Range/Units 09:19 09:19 WBC (3.8-10.6) k/uL RBC (3.80-5.40) m/uL Hgb (11.4-16.0) gm/dL Hct (34.0-46.0) % MCV (80.0-100.0) fL MCH (25.0-35.0) pg MCHC (31.0-37.0) g/dL RDW (11.5-15.5) % Plt Count (150-450) k/uL MPV Neutrophils % % Lymphocytes % % Monocytes % % Eosinophils % % Basophils % % Neutrophils # (1.3-7.7) k/uL Lymphocytes # (1.0-4.8) k/uL Monocytes # (0-1.0) k/uL Eosinophils # (0-0.7) k/uL Basophils # (0-0.2) k/uL Sodium 139 (137-145) mmol/L Potassium 4.1 (3.5-5.1) mmol/L Chloride 107 (98-107) mmol/L Carbon Dioxide 22 (22-30) mmol/L Anion Gap 10 mmol/L BUN 14 (7-17) mg/dL Creatinine 0.67 (0.52-1.04) mg/dL Est GFR (CKD-EPI)AfAm >90 (>60 ml/min/1.73 sqM) Est GFR (CKD-EPI)NonAf >90 (>60 ml/min/1.73 sqM) Glucose 88 (74-99) mg/dL Plasma Lactic Acid Manny 0.7 (0.7-2.0) mmol/L Calcium 8.6 (8.4-10.2) mg/dL Total Bilirubin 0.7 (0.2-1.3) mg/dL AST 30 (14-36) U/L ALT 32 (4-34) U/L Alkaline Phosphatase 63 (38-126) U/L Total Protein 6.3 (6.3-8.2) g/dL Albumin 3.9 (3.5-5.0) g/dL Amylase 37 (30-110) U/L Lipase 31 (23-300) U/L Urine Color Urine Appearance (Clear) Urine pH (5.0-8.0) Ur Specific [place] (1.001-1.035) Urine Protein (Negative) Urine Glucose (UA) (Negative) Urine Ketones (Negative) Urine Blood (Negative) Urine Nitrite (Negative) Urine Bilirubin (Negative) Urine Urobilinogen (<2.0) mg/dL Ur Leukocyte Esterase (Negative) Urine RBC (0-5) /hpf Urine WBC (0-5) /hpf Ur Squamous Epith Cells (0-4) /hpf Urine Mucus (None) /hpf Urine HCG, Qual (Not Detectd) Disposition Clinical Impression: Ovarian cyst, Flank pain Disposition: HOME SELF-CARE Condition: Stable Instructions (If sedation given, give patient instructions): Flank Pain (ED) Additional Instructions: Please return to the Emergency Department if symptoms worsen or any other concerns. Prescriptions: Ketorolac [Toradol] 10 mg PO Q8HR #15 tab Is patient prescribed a controlled substance at d/c from ED?: No Referrals: Rosa Lozano MD [Primary Care Provider] - 1-2 days Time of Disposition: 12:15
[2020-06-30 09:55] LABS: ALT 32 U/L (4-34); AST 30 U/L (14-36); African American GFR (CKD) >90 (>60 ml/min/1.73 sqM); Albumin 3.9 g/dL (3.5-5.0); Alkaline Phosphatase 63 U/L (38-126); Amylase 37 U/L (30-110); Anion Gap 10 mmol/L; Blood Urea Nitrogen 14 mg/dL (7-17); Calcium 8.6 mg/dL (8.4-10.2); Carbon Dioxide 22 mmol/L (22-30); Chloride 107 mmol/L (98-107); Glucose 88 mg/dL (74-99); Lipase 31 U/L (23-300); Non-African American GFR(CKD) >90 (>60 ml/min/1.73 sqM); Potassium 4.1 mmol/L (3.5-5.1); Sodium 139 mmol/L (137-145); Total Bilirubin 0.7 mg/dL (0.2-1.3); Total Protein 6.3 g/dL (6.3-8.2)
--- NOTE | 2020-06-30 10:35 | US ---
EXAMINATION TYPE: US kidneys/renal and bladder DATE OF EXAM: 06/30/2020 COMPARISON: 06/22/2020 CT abdomen and pelvis 06/22/2020 CLINICAL HISTORY: pain. Back pain x 3 weeks, hematuria, nausea EXAM MEASUREMENTS: Right Kidney: 10.8 x 4.6 x 4.3 cm Left Kidney: 10.6 x 5.0 x 5.0 cm Right Kidney: No hydronephrosis or masses seen Left Kidney: No hydronephrosis or masses seen Bladder: wnl Bilateral Jets seen: no Right ovary: 5.8 x 4.2 x 4.2cm septated complex cystic structure. Continued sonographic follow-up i s recommended. IMPRESSION: 1. No evidence of hydronephrosis or shadowing renal calculi. 2. The bilateral ureteral jets are not visualized within the urinary bladder. 3. There is a large complex cystic structure with septation of the right ovary measuring up to 5.8 cm . This previously measured 4.8 x 3.3 x 3.0 cm. Continued sonographic follow-up is recommended.
[2020-06-30 11:35] LABS: Appearance,Urine Clear (Clear); Bilirubin,Urine Negative (Negative); Blood,Urine Small (Negative); Color,Urine Yellow; Glucose,Urine (UA) Negative (Negative); Ketones,Urine Negative (Negative); Leukocyte Esterase,Urine Trace (Negative); Mucus,Urine Moderate /hpf; Nitrite,Urine Negative (Negative); PH, Urine 6.5 (5.0-8.0); Protein,Urine Trace (Negative); RBC,Urine 2 /hpf (0-5); Squamous Epithelial Cell,Urine 3 /hpf (0-4); Urobilinogen,Urine <2.0 mg/dL (<2.0); WBC,Urine 4 /hpf (0-5)
[2020-06-30] MEDS ORDERED: ACET/COD 300 MG/30 MG STARTER PACK 6 TAB BTL PO STA (12:16)
[2020-06-30 12:17] VITALS: BP 129/90; PULSE 77; TEMP 98.3
== END 2020-06-30 12:20 | disposition home or self-care (01) ==
LOC: EC 08:56
DX: N83.201 Unspecified ovarian cyst, right side (principal); J44.9 Chronic obstructive pulmonary disease, unspecified; Z87.891 Personal history of nicotine dependence
CPT/HCPCS: 36415; 80053; 82150; 83605; 83690; 85025; 81001; 81025; 76770; 99284; 96374; 96375 ×2; 96376; 96361; J2405; J1885; J1170

== ENCOUNTER 2020-07-07 22:18 | Observation (INO) | payer BC ==
--- NOTE | 2020-07-07 22:43 | ED ---
Chest Pain HPI - General Chief Complaint: Chest Pain Stated Complaint: chest pain,fatigue,nauseous Time Seen by Provider: 07/07/20 22:41 Source: patient, RN notes reviewed, old records reviewed Mode of arrival: ambulatory Limitations: no limitations - History of Present Illness Initial Comments: This is a 35-year-old female to the ER complaining of chest pain. Chest pain jaw pain and fatigue. Patient feels weak. She has have a history of COPD. Had a heart murmur as a child. Patient complaining of current chest pain. No shortness of breath currently. No recent travel history no known sick contacts no fever cough or congestion MD Complaint: chest pain -: hour(s) Onset: during rest, during exertion Pain Location: left chest Pain Radiation: jaw/teeth Severity: moderate Severity scale (1-10): 5 Quality: tightness Consistency: intermittent Improves With: nothing Worsens With: nothing Context: other (none) Anginal Symptoms: other (none) Other Symptoms: palpitations Treatments Prior to Arrival: none - Related Data Home Medications Medication Instructions Recorded Confirmed Sugar Bear Hair Vitamin 1 tab PO DAILY 06/22/20 07/07/20 Allergies Allergy/AdvReac Type Severity Reaction Status Date / Time Penicillins AdvReac Severe Rapid Verified 07/07/20 23:22 Heart Rate albuterol AdvReac ANXIETY Verified 07/07/20 23:22 Review of Systems ROS Statement: Those systems with pertinent positive or pertinent negative responses have been documented in the HPI. ROS Other: All systems not noted in ROS Statement are negative. EKG Findings - EKG Comments: EKG Findings:: EKG shows sinus rhythm 75, ID 142 QRS 92 QTC 431 Past Medical History Past Medical History: COPD Additional Past Medical History / Comment(s): Murmur when young. History of Any Multi-Drug Resistant Organisms: None Reported Past Surgical History: Appendectomy, Section Additional Past Surgical History / Comment(s): x2 c- scetion, reconstructive nASAL SX Past Anesthesia/Blood Transfusion Reactions: No Reported Reaction Past Psychological History: No Psychological Hx Reported Smoking Status: Former smoker Past Alcohol Use History: Rare Past Drug Use History: None Reported - Past Family History Father History Unknown: Yes General Exam Limitations: no limitations General appearance: alert, in no apparent distress, anxious Head exam: Present: atraumatic, normocephalic, normal inspection Eye exam: Present: normal appearance, PERRL, EOMI. Absent: scleral icterus, conjunctival injection, periorbital swelling ENT exam: Present: normal exam, mucous membranes moist Neck exam: Present: normal inspection. Absent: tenderness, meningismus, lymphadenopathy Respiratory exam: Present: normal lung sounds bilaterally. Absent: respiratory distress, wheezes, rales, rhonchi, stridor Cardiovascular Exam: Present: regular rate, normal rhythm, normal heart sounds. Absent: systolic murmur, diastolic murmur, rubs, gallop, clicks GI/Abdominal exam: Present: soft, normal bowel sounds. Absent: distended, tenderness, guarding, rebound, rigid Extremities exam: Present: normal inspection, full ROM, normal capillary refill. Absent: tenderness, pedal edema, joint swelling, calf tenderness Back exam: Present: normal inspection Neurological exam: Present: alert, oriented X3, CN II-XII intact Psychiatric exam: Present: normal affect, normal mood Skin exam: Present: warm, dry, intact, normal color. Absent: rash Course Vital Signs 07/07/20 22:21 Temperature 99.2 F Pulse Rate 99 Respiratory 16 Rate Blood Pressure 133/104 O2 Sat by Pulse 98 Oximetry - Reevaluation(s) Reevaluation #1: 07/07/20 23:16 Medical record is reviewed Reevaluation #2: 07/07/20 23:16 Chest pain persists here in the ER Reevaluation #3: 07/08/20 02:07 Patient informed of results here in the ER and questions answered Reevaluation #4: 07/08/20 02:07 Patient feels good with plan of discharge Reevaluation #5: 07/08/20 03:12 Patient remains significantly anxious throughout ER stay Chest Pain MDM - MDM 35 female who did present with chest pain. Patient is found to have urinary tract infection prior blood work will treat UTI. Patient will follow blood culture results for patient also preferring no discharge say something is wrong will be admitted for echo and further evaluation Disposition Clinical Impression: Chest wall pain, UTI (urinary tract infection) Narrative: r/o Bacteremia Disposition: ADMITTED IP TO THIS HOSP Condition: Good Is patient prescribed a controlled substance at d/c from ED?: No
--- NOTE | 2020-07-07 23:40 | XR ---
EXAMINATION TYPE: XR chest 2V DATE OF EXAM: 07/07/2020 COMPARISON: 05/29/2020 HISTORY: Chest pain TECHNIQUE: 2 views FINDINGS: Heart and mediastinum are normal. Lungs are clear. Costophrenic angles are clear. There are no hilar masses. There are chest leads. Bony thorax is intact. IMPRESSION: No active cardiopulmonary disease. No adverse change.
[2020-07-07 23:46] LABS: Basophils % (A) 0 %; Eosinophils # (A) 0.3 k/uL (0-0.7); Eosinophils % (A) 3 %; HCT 41.4 % (34.0-46.0); HGB 14.4 gm/dL (11.4-16.0); Lymphocytes # (A) 2.2 k/uL (1.0-4.8); Lymphocytes % (A) 22 %; MCH 29.5 pg (25.0-35.0); MCHC 34.7 g/dL (31.0-37.0); Mean Platelet Volume 7.2; Monocytes # (A) 0.4 k/uL (0-1.0); Monocytes % (A) 4 %; Neutrophils # (A) 6.7 k/uL (1.3-7.7); Neutrophils % (A) 69 %; Platelet Count 227 k/uL (150-450); RBC 4.87 m/uL (3.80-5.40); RDW 12.7 % (11.5-15.5); WBC 9.8 k/uL (3.8-10.6)
[2020-07-07 23:58] LABS: ALT 41 U/L (4-34); AST 35 U/L (14-36); African American GFR (CKD) >90 (>60 ml/min/1.73 sqM); Albumin 4.1 g/dL (3.5-5.0); Alkaline Phosphatase 69 U/L (38-126); Anion Gap 7 mmol/L; Blood Urea Nitrogen 13 mg/dL (7-17); Calcium 9.4 mg/dL (8.4-10.2); Carbon Dioxide 24 mmol/L (22-30); Chloride 106 mmol/L (98-107); Creatine Kinase 52 U/L (30-135); Glucose 99 mg/dL (74-99); Lipase 73 U/L (23-300); Magnesium 1.7 mg/dL (1.6-2.3); Non-African American GFR(CKD) >90 (>60 ml/min/1.73 sqM); Potassium 4.1 mmol/L (3.5-5.1); Sodium 137 mmol/L (137-145); Total Bilirubin 0.1 mg/dL (0.2-1.3); Total Protein 6.7 g/dL (6.3-8.2)
[2020-07-07 23:59] LABS: INR 0.9 (<1.2); Partial Thromboplastin Time 23.6 sec (22.0-30.0); Prothrombin Time 9.6 sec (9.0-12.0)
[2020-07-08 00:05] LABS: D-Dimer 0.75 mg/L FEU (<0.60)
[2020-07-08] MEDS ORDERED: SODIUM CHLORIDE 0.9% 1,000 ML IV STA (00:44)
[2020-07-08] MEDS ORDERED: cefTRIAXone IN SWFI 1,000 MG/10 ML SYRINGE IVP STA (02:05)
[2020-07-08] MEDS ORDERED: CEPHALEXIN 500MG STARTER PACK 4 CAP BTL PO STA (02:07)
--- NOTE | 2020-07-08 02:25 | CT ---
EXAM: CT Angiography Chest With Intravenous Contrast CLINICAL HISTORY: ITS.REASON CT Reason: cp TECHNIQUE: Axial computed tomographic angiography images of the chest with intravenous contrast. CTDI is 13.57 mGy and DLP is 396.20 mGy-cm. This CT exam was performed using one or more of the following dose reduction techniques: automated exposure control, adjustment of the mA and/or kV according to patient size, and/or use of iterative reconstruction technique. MIP reconstructed images were created and reviewed. COMPARISON: No relevant prior studies available. FINDINGS: Pulmonary arteries: No pulmonary embolus. Aorta: No thoracic aortic dissection or aneurysm. Lungs: Unremarkable. No mass. No consolidation. Pleural space: Unremarkable. No significant effusion. No pneumothorax. Heart: Unremarkable. No cardiomegaly. No significant pericardial effusion. No evidence of RV dysfunction. Bones/joints: No acute fracture. No dislocation. Soft tissues: Unremarkable. Lymph nodes: Unremarkable. No enlarged lymph nodes. IMPRESSION: 1. No pulmonary embolus. 2. No thoracic aortic dissection or aneurysm.
[2020-07-08] MEDS ORDERED: KETOROLAC 15 MG/ML 1 ML VIAL IVP STA (03:05)
[2020-07-08] MEDS ORDERED: DIAZEPAM 5 MG/ML 2 ML INJ IVP STA (03:05)
[2020-07-08] MEDS ORDERED: SODIUM CHLORIDE 0.9% 1,000 ML IV SCH (03:15)
[2020-07-08] MEDS ORDERED: LORazepam 2 MG/ML INJ IV PRN (06:23)
[2020-07-08] MEDS ORDERED: LORazepam 2 MG/ML INJ IV STA (06:23)
[2020-07-08] MEDS ORDERED: FAMOTIDINE 20 MG/2 ML VIAL IV SCH (09:00)
[2020-07-08] MEDS ORDERED: HEPARIN SODIUM,PORCINE/PF 5,000 UNIT/0.5 ML SYRINGE SQ SCH (09:00)
[2020-07-08 09:02] LABS: HCG,Qualitative Serum Not Detected
--- NOTE | 2020-07-08 09:14 | P.HPIM ---
History of Present Illness This is a pleasant 35 years old female with no significant past medical history. He presents because of chest pain. She is patient of Dr. Lozano. Also she follows up with urologist, as she states she had 3 UTI and she received 2 c ourses of antibiotics last month. 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 This time she presents because of chest pain since yesterday central tendon of her chest goes to the right jaw, neck and to the shoulder blades. About 5/10 in severity felt like burning or warm. Also patient has been complaining from burning in both arms She denies any abdominal pain. No nausea vomiting. No urinary symptoms like no urgency or dysuria. No polyuria or decreased amount of urination. She denies headache or focal weakness or numbness. However she feels generally weak in all 4 extremities. No blurred vision R slurred speech. She denies signs or symptoms of depression. She quit smoking about 1 year and 2 months ago. No alcohol or illicit drugs. She denies any unusual stress in her life She is hemodynamically stable and labs including CBC, BMP, chau virus not detected. Troponins 3 are negative less than 0.012. ProBNP is 25. EKG showing normal sinus rhythm at 75 BPM with no significant ST-T changes CTA of the chest showing no pulmonary embolism, no thoracic aortic dissection or aneurysm. In the emergency room patient was started on ceftriaxone 1 for possible UTI although there is no urinalysis documented Asst. Also she was provided with Ativan and normal saline at 100 mL per hour Also she was given Valium and Ativan Review of Systems CONSTITUTIONAL: No fever, no malaise, no fatigue. HEENT: No recent visual problems or hearing problems. Denied any sore throat. CARDIOVASCULAR: No orthopnea, PND, no palpitations, no syncope. PULMONARY: No shortness of breath, no cough, no hemoptysis. GASTROINTESTINAL: No diarrhea, no nausea, no vomiting, no abdominal pain. Normoactive bowel sounds. NEUROLOGICAL: No headaches, no weakness, no numbness. HEMATOLOGICAL: Denies any bleeding or petechiae. GENITOURINARY: Denies any burning micturition, frequency, or urgency. MUSCULOSKELETAL/RHEUMATOLOGICAL: Denies any joint pain, swelling, or any muscle pain. ENDOCRINE: Denies any polyuria or polydipsia. Past Medical History Past Medical History: COPD Additional Past Medical History / Comment(s): Murmur when young. History of Any Multi-Drug Resistant Organisms: None Reported Past Surgical History: Appendectomy, Section Additional Past Surgical History / Comment(s): x2 c- scetion, reconstructive nASAL SX Past Anesthesia/Blood Transfusion Reactions: No Reported Reaction Past Psychological History: No Psychological Hx Reported Smoking Status: Former smoker Past Alcohol Use History: Rare Past Drug Use History: None Reported - Past Family History Father History Unknown: Yes Medications and Allergies Home Medications Medication Instructions Recorded Confirmed Type Sugar Bear Hair Vitamin 1 tab PO DAILY 06/22/20 07/07/20 History Allergies Allergy/AdvReac Type Severity Reaction Status Date / Time Penicillins AdvReac Severe Rapid Verified 07/07/20 23:22 Heart Rate albuterol AdvReac ANXIETY Verified 07/07/20 23:22 Physical Exam Vitals: Vital Signs Temp Pulse Resp BP Pulse Ox 07/08/20 06:46 70 16 124/86 100 07/07/20 22:21 99.2 F 99 16 133/104 98 Intake and Output 07/07/20 07/08/20 07/08/20 22:59 06:59 14:59 Other: Weight 81.647 kg GENERAL: The patient is alert and oriented x3, not in any acute distress. Well developed, well nourished. HEENT: Pupils are round and equally reacting to light. EOMI. No scleral icterus. No conjunctival pallor. Normocephalic, atraumatic. No pharyngeal erythema. No thyromegaly. CARDIOVASCULAR: S1 and S2 present. No murmurs, rubs, or gallops. PULMONARY: Chest is clear to auscultation, no wheezing or crackles. ABDOMEN: Soft, nontender, nondistended, normoactive bowel sounds. No palpable organomegaly. MUSCULOSKELETAL: No joint swelling or deformity. EXTREMITIES: No cyanosis, clubbing, or pedal edema. NEUROLOGICAL: Gross neurological examination did not reveal any focal deficits. SKIN: No rashes. 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 We'll do serial troponins, cardiology consult, follow-up echocardiogram. Labs and medication were reviewed.. Continue same treatment. Continue with symptomatic treatment. Resume home medication. Monitor lytes and vitals. DVT and GI prophylaxis. Further recommendations depends on the clinical course of the patient DVT prophylaxis: Subcutaneous heparin GI Prophylaxis: Pepcid
[2020-07-08 09:38] VITALS: RESP 18
[2020-07-08 11:16] LABS: Appearance,Urine Clear (Clear); Bilirubin,Urine Negative (Negative); Blood,Urine Negative (Negative); Color,Urine Yellow; Glucose,Urine (UA) Negative (Negative); Ketones,Urine Negative (Negative); Leukocyte Esterase,Urine Negative (Negative); Nitrite,Urine Negative (Negative); PH, Urine 6.5 (5.0-8.0); Protein,Urine Negative (Negative); Specific Gravity,Urine 1.028 (1.001-1.035); Urobilinogen,Urine <2.0 mg/dL (<2.0)
--- NOTE | 2020-07-08 12:00 | ECHOF ---
Referral Reason:cp MEASUREMENTS -------- HEIGHT: 157.5 cm WEIGHT: 86.2 kg BP: IVSd: 1.1 cm (0.6 - 1.1) LVIDd: 3.8 cm (3.9 - 5.3) LVPWd: 1.2 cm (0.6 - 1.1) IVSs: 1.8 cm LVIDs: 2.3 cm LVPWs: 1.6 cm LAESV Index (A-L): 16.20 ml/m Ao Diam: 2.7 cm (2.0 - 3.7) AV Cusp: 2.0 cm (1.5 - 2.6) LA Diam: 2.6 cm (2.7 - 3.8) MV EXCURSION: 14.273 mm (> 18.000) MV EF SLOPE: 82 mm/s (70 - 150) EPSS: 0.9 cm MV E Tulio: 0.72 m/s MV DecT: 157 ms MV A Tulio: 0.54 m/s MV E/A Ratio: 1.34 RAP: 5.00 mmHg RVSP: 18.54 mmHg FINDINGS -------- This was a technically good study. The left ventricular size is normal. Left ventricular wall thickness is normal. Overall left vent ricular systolic function is normal with, an EF between 55 - 60 %. The diastolic filling pattern is normal for the age of the patient 6.89. The right ventricle is normal in size. The left atrial size is normal. Normal LA size by volume 22+/-6 ml/m2. The right atrial size is normal. The aortic valve is trileaflet and appears structurally normal. The mitral valve is normal. There is trace mitral regurgitation. The tricuspid valve appears structurally normal. Trace tricuspid regurgitation present. Right danielle tricular systolic pressure is normal at < 35 mmHg. There is no pulmonic regurgitation present. The aortic root size is normal. Normal inferior vena cava with normal inspiratory collapse consistent with estimated right atrial pre ssure of 5 mmHg. There is no pericardial effusion. CONCLUSIONS -------- 1. The left ventricular size is normal. 2. Left ventricular wall thickness is normal. 3. Overall left ventricular systolic function is normal with, an EF between 55 - 60 %. 4. The diastolic filling pattern is normal for the age of the patient 6.89 5. There is trace mitral regurgitation. 6. Trace tricuspid regurgitation present. 7. There is no pulmonic regurgitation present. 8. There is no pericardial effusion. MERCHANDISING MANAGER: Bailey Hall RDCS
--- NOTE | 2020-07-08 12:51 | EST ---
EXERCISE STRESS DATE OF SERVICE: 07/08/2020 INDICATION: Chest pain. AGE: 35 SEX: Fe HT: @@ WT: @@ PROTOCOL: @@ STAGE: @@ DURATION OF EXERCISE: @@ HEART RATE REST: @@ BLOOD PRESSURE REST: @@ MAXIMUM HEART RATE ACHIEVED: @@ MAXIMUM BLOOD PRESSURE: @@ 85% MPHR: @@ 100% MPHR: @@ METS: @@ RESULTS: Baseline EKG shows sinus rhythm, normal axis, normal intervals. Patient exercised on Noble protocol for a total of 9 minutes and 40 seconds achieving 11 METS, 90% of predicted maximal heart rate without chest pain or diagnostic ST-segment depression. Baseline echo shows normal left ventricular size, wall motion and systolic function. Postexercise there is normal hyperdynamic response of all segments of myocardium noted. CONCLUSION: 1. Good exercise tolerance. 2. Negative stress test by EKG criteria. 3. Negative stress echo. MAXWELL / CLARAN: [id number] /
--- NOTE | 2020-07-08 13:23 | CONS ---
CONSULTATION CHIEF COMPLAINT: Chest pain. INTERVAL HISTORY: Anita is a 35-year-old lady with no significant past medical history who presented to hospital complaining of chest discomfort. Comes to the hospital complaining of chest pain. Her chest discomfort is sharp, precordial, mild to moderate in intensity, unrelated to exertion and not associated with diaphoresis. There is no definite radiation to neck, arm or back. She has had 3 sets of cardiac enzymes that are negative. Her test is negative. Coronavirus test is negative. EKG reveals sinus rhythm without significant ST-T wave changes. She does not have any significant coronary risk factors. There is no history of hypertension, diabetes, dyslipidemia, smoking or family history of premature coronary artery disease. PAST MEDICAL HISTORY: Unremarkable. MEDICATIONS: None. ALLERGIC: ALBUTEROL AND PENICILLIN. FAMILY HISTORY: Negative for premature coronary artery disease. SOCIAL HISTORY: Negative for smoking, EtOH abuse, or drug abuse. REVIEW OF SYSTEMS: HEENT: Unremarkable. CARDIAC: As described above. RESPIRATORY: As described above. GI: Negative. : Negative. ALLERGY/IMMUNOLOGY: Negative. SKIN: Negative. MUSCULOSKELETAL: Negative. ENDOCRINE: Negative. HEMATOLOGIC/DERM: Negative. CONSTITUTIONAL: Negative. ONCOLOGICAL: Negative. CLERICAL SUPPORT: Negative. Rest of the system review is not relevant. EXAM: Comfortable at rest. Afebrile. Vital signs are stable. There is no jugular venous distention. Carotid upstroke is normal. There is no bruit. Chest exam reveals good air entry bilaterally. Heart exam reveals first and second heart sounds. No gallop. No murmur. No rub. Abdomen is soft, nontender. Examination of the extremities did not reveal any edema. Peripheral pulses are felt. EKG shows normal sinus rhythm and is within normal limits. Cardiac enzymes are negative. ASSESSMENT: Chest pain, atypical. MS is ruled out. EKG appears normal. We will schedule her for a stress test this morning along with an echocardiogram. She had a CT scan of the chest that is negative for pulmonary embolism and dissection. MMODL / IJN: [id number] /
[2020-07-08] MEDS ORDERED: IBUPROFEN 400 MG TAB PO PRN (13:38)
[2020-07-08] MEDS ORDERED: ACETAMINOPHEN TAB 325 MG TAB PO PRN (13:38)
[2020-07-08] MEDS ORDERED: IBUPROFEN 600 MG TAB PO PRN (13:51)
--- NOTE | 2020-07-08 14:42 | US ---
EXAMINATION TYPE: US venous doppler duplex LE BI DATE OF EXAM: 07/08/2020 1:39 PM COMPARISON: 08/07/2013 CLINICAL HISTORY: Rule out DVT. Elevated D dimer SIDE PERFORMED: Bilateral TECHNIQUE: The lower extremity deep venous system is examined utilizing real time linear array sonog faith with graded compression, doppler sonography and color-flow sonography. VESSELS IMAGED: Common Femoral Vein Deep Femoral Vein Greater Saphenous Vein * Femoral Vein Popliteal Vein Small Saphenous Vein * Proximal Calf Veins (* superficial vessels) Right Leg: Negative for DVT Left Leg: Negative for DVT IMPRESSION: 1. No evidence of deep venous thrombosis in the bilateral lower extremity veins.
[2020-07-08 15:26] VITALS: BP 118/72; PULSE 86; TEMP 98.4
[2020-07-08] MEDS ORDERED: FAMOTIDINE 20 MG TAB PO SCH (21:00)
[2020-07-09] MEDS ORDERED: ASPIRIN 325 MG TAB PO SCH (09:00)
== END 2020-07-08 16:20 | disposition home or self-care (01) ==
LOC: EC 22:18 → 6NMEDSUR 07-08 03:03
PROVIDERS: ADMIT Hospitalist; ATTEND Hospitalist
DX: N39.0 Urinary tract infection, site not specified (principal); Z20.822 Contact with and (suspected) exposure to COVID-19; J44.9 Chronic obstructive pulmonary disease, unspecified; R00.2 Palpitations; R07.89 Other chest pain; R68.84 Jaw pain; R01.1 Cardiac murmur, unspecified; Z88.0 Allergy status to penicillin; Z88.9 Allergy status to unspecified drugs, medicaments and biological substances; Z90.49 Acquired absence of other specified parts of digestive tract; Z87.891 Personal history of nicotine dependence; Z98.891 History of uterine scar from previous surgery; N83.201 Unspecified ovarian cyst, right side; Z87.440 Personal history of urinary (tract) infections
CPT/HCPCS: 96361; 96374; 96375; 99285; 36415 ×2; 93306; 93351; 85379; 83880; 80053; 84443; 82550; 83615; 83690; 83735; 84484 ×2; 85025; 85610; 85730; 86140; 81003; 84703; 87635; 71046; 93970; 71275; G0378; J2060; J3360; J0696; J1885; Q9967

== ENCOUNTER → 2020-08-14 | Outpatient (CLI) | payer BC | END | disposition home or self-care (01) | DX: M43.17 Spondylolisthesis, lumbosacral region (principal) ==

== ENCOUNTER 2020-08-18 04:09 | Emergency (ER) | payer BC ==
[2020-08-18] MEDS ORDERED: MORPHINE SULFATE 4 MG/ML SYRINGE IV STA ×2 (04:31→06:05)
[2020-08-18] MEDS ORDERED: SODIUM CHLORIDE 0.9% 500 ML 500 ML IV STA (04:31)
[2020-08-18 04:52] LABS: Basophils # (A) 0.1 k/uL (0-0.2); Basophils % (A) 0 %; Eosinophils # (A) 0.4 k/uL (0-0.7); Eosinophils % (A) 3 %; HCT 42.2 % (34.0-46.0); HGB 14.9 gm/dL (11.4-16.0); Lymphocytes % (A) 15 %; MCH 29.4 pg (25.0-35.0); MCHC 35.3 g/dL (31.0-37.0); MCV 83.4 fL (80.0-100.0); Mean Platelet Volume 7.5; Monocytes # (A) 0.6 k/uL (0-1.0); Monocytes % (A) 4 %; Neutrophils % (A) 76 %; Platelet Count 233 k/uL (150-450); RBC 5.06 m/uL (3.80-5.40); RDW 12.6 % (11.5-15.5); WBC 13.2 k/uL (3.8-10.6)
[2020-08-18 05:03] LABS: ALT 40 U/L (4-34); AST 31 U/L (14-36); African American GFR (CKD) >90 (>60 ml/min/1.73 sqM); Albumin 4.2 g/dL (3.5-5.0); Alkaline Phosphatase 77 U/L (38-126); Amylase 55 U/L (30-110); Anion Gap 11 mmol/L; Blood Urea Nitrogen 13 mg/dL (7-17); Calcium 9.7 mg/dL (8.4-10.2); Carbon Dioxide 20 mmol/L (22-30); Chloride 108 mmol/L (98-107); Glucose 98 mg/dL (74-99); Lipase 54 U/L (23-300); Non-African American GFR(CKD) >90 (>60 ml/min/1.73 sqM); Potassium 4.1 mmol/L (3.5-5.1); Sodium 139 mmol/L (137-145); Total Bilirubin 0.2 mg/dL (0.2-1.3)
--- NOTE | 2020-08-18 05:11 | XR ---
EXAMINATION TYPE: XR KUB DATE OF EXAM: 08/18/2020 COMPARISON: NONE HISTORY: Pain TECHNIQUE: 2 views upright FINDINGS: Bowel gas pattern is normal. There is no sign of intestinal obstruction or pneumoperitoneum . Fecal pattern is normal. There is no evidence of a mass. IMPRESSION: Nonacute abdomen.
[2020-08-18 05:37] LABS: Appearance,Urine Clear (Clear); Bilirubin,Urine Negative (Negative); Blood,Urine Negative (Negative); Color,Urine Yellow; Glucose,Urine (UA) Negative (Negative); Ketones,Urine Negative (Negative); Leukocyte Esterase,Urine Negative (Negative); Nitrite,Urine Negative (Negative); Protein,Urine Negative (Negative); Specific Gravity,Urine 1.017 (1.001-1.035); Urobilinogen,Urine <2.0 mg/dL (<2.0)
--- NOTE | 2020-08-18 06:22 | ED ---
Abdominal Pain HPI - General Source: patient Mode of arrival: ambulatory Limitations: no limitations - History of Present Illness MD Complaint: abdominal pain Onset/Timin -: days(s) Location: LLQ Radiation: none Migration to: no migration Severity: severe Quality: aching, sharp Consistency: colicky Improves With: nothing Worsens With: nothing Associated Symptoms: nausea - Related Data LMP (females 10-50): 1 month <Morales Talbert - Last Filed: 08/18/20 06:20> <Ger Diaz - Last Filed: 08/18/20 09:50> - General Chief Complaint: Abdominal Pain Stated Complaint: abd pain Time Seen by Provider: 08/18/20 04:23 - Related Data Home Medications Medication Instructions Recorded Confirmed Sugar [place] Hair Vitamin 1 tab PO DAILY 06/22/20 08/18/20 Acetaminophen Tab [Tylenol] 650 mg PO Q6H PRN 08/18/20 08/18/20 Naproxen 500 mg PO BID PRN 08/18/20 08/18/20 Allergies Allergy/AdvReac Type Severity Reaction Status Date / Time Penicillins AdvReac Severe Rapid Verified 08/18/20 07:39 Heart Rate albuterol AdvReac Rapid Verified 08/18/20 07:39 Heart Rate Review of Systems ROS Other: All systems not noted in ROS Statement are negative. Constitutional: Denies: fever, chills Respiratory: Denies: cough, dyspnea Cardiovascular: Denies: chest pain, palpitations Gastrointestinal: Reports: abdominal pain. Denies: vomiting, diarrhea, constipation Genitourinary: Denies: dysuria, frequency, hematuria, abnormal menses Musculoskeletal: Denies: back pain Skin: Denies: rash Neurological: Denies: headache, weakness, numbness <Morales Talbert - Last Filed: 08/18/20 06:20> ROS Other: All systems not noted in ROS Statement are negative. <Ger Diaz - Last Filed: 08/18/20 09:50> ROS Statement: Those systems with pertinent positive or pertinent negative responses have been documented in the HPI. Past Medical History Past Medical History: COPD Additional Past Medical History / Comment(s): Murmur when young. History of Any Multi-Drug Resistant Organisms: None Reported Past Surgical History: Appendectomy, Section Additional Past Surgical History / Comment(s): x2 c- scetion, reconstructive nASAL SX Past Anesthesia/Blood Transfusion Reactions: No Reported Reaction Past Psychological History: No Psychological Hx Reported Smoking Status: Former smoker Past Alcohol Use History: Rare Past Drug Use History: None Reported - Past Family History Father History Unknown: Yes <GaliMorales - Last Filed: 08/18/20 06:20> General Exam Limitations: no limitations General appearance: alert, in no apparent distress Head exam: Present: atraumatic, normocephalic Eye exam: Present: normal appearance. Absent: scleral icterus, conjunctival injection ENT exam: Present: normal oropharynx Neck exam: Present: normal inspection Respiratory exam: Present: normal lung sounds bilaterally. Absent: respiratory distress, wheezes, rales, rhonchi, stridor Cardiovascular Exam: Present: regular rate, normal rhythm, normal heart sounds. Absent: systolic murmur, diastolic murmur, rubs, gallop GI/Abdominal exam: Present: soft, tenderness, guarding, normal bowel sounds. Absent: distended, rebound, rigid, mass, pulsatile mass, hernia Extremities exam: Present: normal inspection, normal capillary refill. Absent: pedal edema, calf tenderness Back exam: Present: normal inspection. Absent: CVA tenderness (R), CVA tenderness (L) Neurological exam: Present: alert Skin exam: Present: warm, dry, intact, normal color. Absent: rash <Morales Talbert - Last Filed: 08/18/20 06:20> Course Vital Signs 08/18/20 08/18/20 04:14 08:45 Temperature 98.3 F Pulse Rate 99 74 Respiratory 18 16 Rate Blood Pressure 126/77 109/78 O2 Sat by Pulse 98 98 Oximetry Medical Decision Making - Lab Data Result diagrams: 08/18/20 04:34 08/18/20 04:34 <Morales Talbert - Last Filed: 08/18/20 06:20> - Lab Data Result diagrams: 08/18/20 04:34 08/18/20 04:34 - Radiology Data Radiology results: report reviewed (CT abdomen and pelvis shows punctate nonobstructing upper pole left kidney stone. 3 cm left adnexal cystic structure. Ultrasound shows left ovarian cysts, possibly debris containing versus hemorrhagic), image reviewed (ABG reveals no acute process) <Ger Diaz - Last Filed: 08/18/20 09:50> - Medical Decision Making Patient reevaluated and reexamined by myself, Dr. Diaz. Patient resting comfortably in bed, mild discomfort left lower abdomen/pelvic region. Patient states she has had this every month for the past 4 months. Patient has an appointment in 5 days with her UTILIZATION REVIEWER on[address]. Patient will follow-up with this. Patient is otherwise comfortable for discharge. (Ger Diaz) - Lab Data Lab Results 08/18/20 08/18/20 08/18/20 Range/Units 04:34 04:34 04:34 WBC 13.2 H (3.8-10.6) k/uL RBC 5.06 (3.80-5.40) m/uL Hgb 14.9 (11.4-16.0) gm/dL Hct 42.2 (34.0-46.0) % MCV 83.4 (80.0-100.0) fL MCH 29.4 (25.0-35.0) pg MCHC 35.3 (31.0-37.0) g/dL RDW 12.6 (11.5-15.5) % Plt Count 233 (150-450) k/uL MPV 7.5 Neutrophils % 76 % Lymphocytes % 15 % Monocytes % 4 % Eosinophils % 3 % Basophils % 0 % Neutrophils # 10.0 H (1.3-7.7) k/uL Lymphocytes # 2.0 (1.0-4.8) k/uL Monocytes # 0.6 (0-1.0) k/uL Eosinophils # 0.4 (0-0.7) k/uL Basophils # 0.1 (0-0.2) k/uL Sodium (137-145) mmol/L Potassium (3.5-5.1) mmol/L Chloride (98-107) mmol/L Carbon Dioxide (22-30) mmol/L Anion Gap mmol/L BUN (7-17) mg/dL Creatinine (0.52-1.04) mg/dL Est GFR (CKD-EPI)AfAm (>60 ml/min/1.73 sqM) Est GFR (CKD-EPI)NonAf (>60 ml/min/1.73 sqM) Glucose (74-99) mg/dL Calcium (8.4-10.2) mg/dL Total Bilirubin (0.2-1.3) mg/dL AST (14-36) U/L ALT (4-34) U/L Alkaline Phosphatase (38-126) U/L Total Protein (6.3-8.2) g/dL Albumin (3.5-5.0) g/dL Amylase (30-110) U/L Lipase (23-300) U/L Urine Color Yellow Urine Appearance Clear (Clear) Urine pH 6.0 (5.0-8.0) Ur Specific [place] 1.017 (1.001-1.035) Urine Protein Negative (Negative) Urine Glucose (UA) Negative (Negative) Urine Ketones Negative (Negative) Urine Blood Negative (Negative) Urine Nitrite Negative (Negative) Urine Bilirubin Negative (Negative) Urine Urobilinogen <2.0 (<2.0) mg/dL Ur Leukocyte Esterase Negative (Negative) Urine HCG, Qual Not Detected (Not Detectd) 08/18/20 Range/Units 04:34 WBC (3.8-10.6) k/uL RBC (3.80-5.40) m/uL Hgb (11.4-16.0) gm/dL Hct (34.0-46.0) % MCV (80.0-100.0) fL MCH (25.0-35.0) pg MCHC (31.0-37.0) g/dL RDW (11.5-15.5) % Plt Count (150-450) k/uL MPV Neutrophils % % Lymphocytes % % Monocytes % % Eosinophils % % Basophils % % Neutrophils # (1.3-7.7) k/uL Lymphocytes # (1.0-4.8) k/uL Monocytes # (0-1.0) k/uL Eosinophils # (0-0.7) k/uL Basophils # (0-0.2) k/uL Sodium 139 (137-145) mmol/L Potassium 4.1 (3.5-5.1) mmol/L Chloride 108 H (98-107) mmol/L Carbon Dioxide 20 L (22-30) mmol/L Anion Gap 11 mmol/L BUN 13 (7-17) mg/dL Creatinine 0.68 (0.52-1.04) mg/dL Est GFR (CKD-EPI)AfAm >90 (>60 ml/min/1.73 sqM) Est GFR (CKD-EPI)NonAf >90 (>60 ml/min/1.73 sqM) Glucose 98 (74-99) mg/dL Calcium 9.7 (8.4-10.2) mg/dL Total Bilirubin 0.2 (0.2-1.3) mg/dL AST 31 (14-36) U/L ALT 40 H (4-34) U/L Alkaline Phosphatase 77 (38-126) U/L Total Protein 7.0 (6.3-8.2) g/dL Albumin 4.2 (3.5-5.0) g/dL Amylase 55 (30-110) U/L Lipase 54 (23-300) U/L Urine Color Urine Appearance (Clear) Urine pH (5.0-8.0) Ur Specific [place] (1.001-1.035) Urine Protein (Negative) Urine Glucose (UA) (Negative) Urine Ketones (Negative) Urine Blood (Negative) Urine Nitrite (Negative) Urine Bilirubin (Negative) Urine Urobilinogen (<2.0) mg/dL Ur Leukocyte Esterase (Negative) Urine HCG, Qual (Not Detectd) Disposition <Morales Talbert - Last Filed: 08/18/20 06:20> Is patient prescribed a controlled substance at d/c from ED?: No Time of Disposition: 09:50 <Ger Diaz - Last Filed: 08/18/20 09:50> Clinical Impression: Ovarian cyst Disposition: HOME SELF-CARE Condition: Stable Instructions (If sedation given, give patient instructions): Ovarian Cyst (ED) Additional Instructions: Please do follow-up with your UTILIZATION REVIEWER in the next 5 days as planned. Call to try to get in sooner. Have UTILIZATION REVIEWER review reports from today. Return for increased pain, fever, worsening or changing symptoms or other concerns. Referrals: Rosa Lozano MD [Primary Care Provider] - 1-2 days
--- NOTE | 2020-08-18 08:05 | CT ---
EXAM: CT Abdomen and Pelvis Without Intravenous Contrast CLINICAL HISTORY: left flank pain TECHNIQUE: Axial computed tomography images of the abdomen and pelvis without intravenous contrast. CTDI is 13.5 mGy and DLP is 699.3 mGy-cm. This CT exam was performed using one or more of the following dose reduction techniques: automated exposure control, adjustment of the mA and/or kV according to patient size, and/or use of iterative reconstruction technique. COMPARISON: CT of the abdomen/pelvis dated 06/22/2020. FINDINGS: Lung bases: Unremarkable. No mass. No consolidation. ABDOMEN: Liver: Unremarkable. Gallbladder and bile ducts: Unremarkable. No calcified stones. No ductal dilation. Pancreas: Unremarkable. No ductal dilation. Spleen: Unremarkable. No splenomegaly. Adrenals: Unremarkable. No mass. Kidneys and ureters: Punctate nonobstructing stone is seen in the upper pole of the left kidney. No hydronephrosis. Stomach and bowel: Unremarkable. No obstruction. No mucosal thickening. PELVIS: Appendix: Status post appendectomy. Bladder: Unremarkable. No stones. Reproductive: A 3 cm left adnexal cystic structure is noted, mild interval increase in size. ABDOMEN and PELVIS: Intraperitoneal space: Unremarkable. No free air. No significant fluid collection. Bones/joints: Mild bilateral sacroiliitis. Chronic L5 pars defects with grade 1-2 anterolisthesis of L5 on S1, as seen on prior study. No acute fracture. No dislocation. Soft tissues: Unremarkable. Vasculature: Unremarkable. No abdominal aortic aneurysm. Lymph nodes: Unremarkable. No enlarged lymph nodes. IMPRESSION: 1. Punctate nonobstructing stone in the upper pole of the left kidney. No hydronephrosis. 2. A 3 cm left adnexal cystic structure, mild interval increase in size. Pelvic ultrasound is recommended for further evaluation. 3. Status post appendectomy.
[2020-08-18] MEDS ORDERED: MORPHINE SULFATE 4 MG/ML SYRINGE IVP STA (08:30)
[2020-08-18 08:45] VITALS: RESP 16
--- NOTE | 2020-08-18 08:59 | US ---
EXAMINATION TYPE: US transvaginal DATE OF EXAM: 08/18/2020 COMPARISON: Same day CT CLINICAL HISTORY: l pain, cystic structure. Pain, abnormal CT TECHNIQUE: Transvaginal (TV). Transvaginal sonographic images of the pelvis were acquired. EXAM MEASUREMENTS: Uterus: 9.1 x 5.5 x 5.9 cm Endometrial Stripe: 0.7 cm Right Ovary: 2.7 x 1.8 x 1.5 cm Left Ovary: 4.9 x 3.8 x 3.5 cm 1. Uterus: Retroverted wnl 2. Endometrium: wnl 3. Right Ovary: wnl 4. Left Ovary: Cyst with some debris= 3.3 x 2.3 x 3.4 cm Spectral, color and waveform doppler imaging shows good arterial and venous flow within the ovaries ; there is no evidence for ovarian torsion. 5. Bilateral Adnexa: wnl 6. Posterior cul-de-sac: wnl IMPRESSION: Findings most consistent with debris-containing cyst versus hemorrhagic left ovarian cyst measuring u p to 3.4 cm.
[2020-08-18] MEDS ORDERED: ACET/COD 300 MG/30 MG STARTER PACK 6 TAB BTL PO STA (09:50)
[2020-08-18 10:16] VITALS: BP 107/86; PULSE 82; TEMP 97.7
== END 2020-08-18 10:14 | disposition home or self-care (01) ==
LOC: EC 04:09
DX: N83.202 Unspecified ovarian cyst, left side (principal); J44.9 Chronic obstructive pulmonary disease, unspecified; Z87.891 Personal history of nicotine dependence; Z88.0 Allergy status to penicillin; Z88.8 Allergy status to other drugs, medicaments and biological substances
CPT/HCPCS: 99284; 96374; 96361; 36415; 80053; 82150; 83690; 85025; 86140; 81003; 81025; 74018; 93975; 76830; 74176; 96376; J2270; 96375

== ENCOUNTER 2020-09-17 08:14 | Emergency (ER) | payer BC ==
[2020-09-17 08:19] VITALS: RESP 18
[2020-09-17] MEDS ORDERED: HYDROmorphone 1 MG/ML 1 ML SYRINGE IVP STA ×3 (08:32→12:02)
[2020-09-17] MEDS ORDERED: SODIUM CHLORIDE 0.9% 1,000 ML IV STA (08:32)
[2020-09-17] MEDS ORDERED: ONDANSETRON 4 MG/2 ML VIAL IVP STA (08:32)
--- NOTE | 2020-09-17 08:36 | ED ---
Abdominal Pain HPI - General Chief Complaint: Abdominal Pain Stated Complaint: endometriosis Time Seen by Provider: 09/17/20 08:25 Source: patient Mode of arrival: wheelchair Limitations: no limitations - History of Present Illness Initial Comments: 35 year-old female patient with past history significant for endometriosis, ovarian cyst presents to the emergency department today for evaluation of left lower quadrant abdominal pain. Patient states she started having pain a few days ago that was managed with naproxen and OTC medication. States that today the pain worsened significantly. Patient states the pain is sharp, stabbing, and radiating through to her left low back. She denies any fever, chills, nausea, vomiting, or diarrhea. States that she was diagnosed with endometriosis recently. She had mirena IUD inserted and received lupron. Patient denies any recent rash, cough, shortness of breath, chest pain, diarrhea, constipation, numbness, tingling, dizziness, weakness, hematuria, dysuria, urinary urgency, urinary frequency, headache, visual changes, or any other complaints. - Related Data Home Medications Medication Instructions Recorded Confirmed Naproxen 500 mg PO BID PRN 08/18/20 09/17/20 Leuprolide Acetate [Lupron Depot] 3.75 mg SQ QMONTHLY 09/17/20 09/17/20 levonorgestreL [Mirena] 1 implant VAGINAL [id number] 09/17/20 09/17/20 methocarbamoL [Methocarbamol] 500 mg PO Q6H PRN 09/17/20 09/17/20 Allergies Allergy/AdvReac Type Severity Reaction Status Date / Time Penicillins AdvReac Severe Rapid Verified 09/17/20 08:40 Heart Rate albuterol AdvReac Rapid Verified 09/17/20 08:40 Heart Rate Review of Systems ROS Statement: Those systems with pertinent positive or pertinent negative responses have been documented in the HPI. ROS Other: All systems not noted in ROS Statement are negative. Past Medical History Past Medical History: COPD Additional Past Medical History / Comment(s): Murmur when young, endometriosis. History of Any Multi-Drug Resistant Organisms: None Reported Past Surgical History: Appendectomy, Section Additional Past Surgical History / Comment(s): x2 c- scetion, reconstructive nASAL SX, lap surgery for endometriosis Past Anesthesia/Blood Transfusion Reactions: No Reported Reaction Past Psychological History: No Psychological Hx Reported Smoking Status: Former smoker Past Alcohol Use History: Rare Past Drug Use History: None Reported - Past Family History Father History Unknown: Yes General Exam Limitations: no limitations General appearance: alert, in no apparent distress, other (This is a well- developed, well-nourished adult female patient in mild distress related to pain. Vital signs upon presentation are temperature 97.8F, pulse 70, respirations 18, blood pressure 125/93, pulse ox 100% on room air.) ENT exam: Present: normal exam, normal oropharynx, mucous membranes moist Respiratory exam: Present: normal lung sounds bilaterally. Absent: respiratory distress, wheezes, rales, rhonchi, stridor Cardiovascular Exam: Present: regular rate, normal rhythm, normal heart sounds. Absent: systolic murmur, diastolic murmur, rubs, gallop, clicks GI/Abdominal exam: Present: soft, tenderness (left lower quadrant), normal bowel sounds. Absent: distended, guarding, rebound, rigid Neurological exam: Present: alert, oriented X3, CN II-XII intact Psychiatric exam: Present: normal affect, normal mood Skin exam: Present: warm, dry, intact, normal color. Absent: rash Course Vital Signs 09/17/20 09/17/20 09/17/20 08:16 09:59 11:14 Temperature 97.8 F Pulse Rate 70 77 70 Respiratory 18 18 18 Rate Blood Pressure 125/93 113/71 O2 Sat by Pulse 100 97 97 Oximetry 09/17/20 12:26 Temperature 97.7 F Pulse Rate 60 Respiratory 18 Rate Blood Pressure 110/95 O2 Sat by Pulse 98 Oximetry Medical Decision Making - Medical Decision Making 35-year-old female patient recently diagnosed with endometriosis presents to the emergency department today for evaluation of left lower pelvic pain with radiation through to the back. Physical examination revealed left sided abdominal tenderness. She is afebrile normal vital signs. Labs reviewed and were unremarkable. Ultrasound was obtained and showed possible fibroid uterus. Did discuss findings results with her. She is feeling better after receiving pain medication the emergency department. She'll be discharged follow-up with her ultrasound tester for further evaluation. Return parameters were discussed in detail. She verbalizes understanding and agrees with this plan. Case discussed in my attending Dr. Grigsby. - Lab Data Result diagrams: 09/17/20 08:56 09/17/20 08:56 Lab Results 09/17/20 09/17/20 09/17/20 Range/Units 08:56 08:56 08:56 WBC 10.4 (3.8-10.6) k/uL RBC 4.85 (3.80-5.40) m/uL Hgb 14.0 (11.4-16.0) gm/dL Hct 42.0 (34.0-46.0) % MCV 86.4 (80.0-100.0) fL MCH 28.7 (25.0-35.0) pg MCHC 33.3 (31.0-37.0) g/dL RDW 13.2 (11.5-15.5) % Plt Count 191 (150-450) k/uL MPV 8.0 Neutrophils % 77 % Lymphocytes % 16 % Monocytes % 4 % Eosinophils % 2 % Basophils % 0 % Neutrophils # 8.0 H (1.3-7.7) k/uL Lymphocytes # 1.6 (1.0-4.8) k/uL Monocytes # 0.5 (0-1.0) k/uL Eosinophils # 0.2 (0-0.7) k/uL Basophils # 0.0 (0-0.2) k/uL Sodium 139 (137-145) mmol/L Potassium 3.9 (3.5-5.1) mmol/L Chloride 111 H (98-107) mmol/L Carbon Dioxide 19 L (22-30) mmol/L Anion Gap 9 mmol/L BUN 11 (7-17) mg/dL Creatinine 0.74 (0.52-1.04) mg/dL Est GFR (CKD-EPI)AfAm >90 (>60 ml/min/1.73 sqM) Est GFR (CKD-EPI)NonAf >90 (>60 ml/min/1.73 sqM) Glucose 91 (74-99) mg/dL Calcium 9.3 (8.4-10.2) mg/dL Total Bilirubin 0.6 (0.2-1.3) mg/dL AST 25 (14-36) U/L ALT 19 (4-34) U/L Alkaline Phosphatase 65 (38-126) U/L Total Protein 6.6 (6.3-8.2) g/dL Albumin 4.0 (3.5-5.0) g/dL Lipase 37 (23-300) U/L Urine Color Yellow Urine Appearance Clear (Clear) Urine pH 5.5 (5.0-8.0) Ur Specific [place] 1.032 (1.001-1.035) Urine Protein Trace H (Negative) Urine Glucose (UA) Negative (Negative) Urine Ketones Negative (Negative) Urine Blood Large H (Negative) Urine Nitrite Negative (Negative) Urine Bilirubin Negative (Negative) Urine Urobilinogen <2.0 (<2.0) mg/dL Ur Leukocyte Esterase Negative (Negative) Urine RBC >182 H (0-5) /hpf Urine WBC 1 (0-5) /hpf Ur Squamous Epith Cells <1 (0-4) /hpf Urine Mucus Many H (None) /hpf - Radiology Data Radiology results: report reviewed, image reviewed Ultrasound of the pelvis was obtained. Report reviewed in its entirety. Impression by Dr. Boothe shows probable fibroid uterus. No acute findings. Disposition Clinical Impression: Abdominal pain Disposition: HOME SELF-CARE Condition: Good Instructions (If sedation given, give patient instructions): Abdominal Pain (ED) Additional Instructions: Follow-up with your ultrasound tester for further evaluation as soon as possible. Return to the emergency department for any new, worsening, or concerning symptoms. Is patient prescribed a controlled substance at d/c from ED?: No Referrals: Rosa Lozano MD [Primary Care Provider] - 1-2 days Time of Disposition: 12:03
[2020-09-17] MEDS ORDERED: diphenhydrAMINE 50 MG/ML 1 ML VIAL IVP STA (08:39)
[2020-09-17 09:15] LABS: Basophils % (A) 0 %; Eosinophils # (A) 0.2 k/uL (0-0.7); Eosinophils % (A) 2 %; Lymphocytes # (A) 1.6 k/uL (1.0-4.8); Lymphocytes % (A) 16 %; MCH 28.7 pg (25.0-35.0); MCHC 33.3 g/dL (31.0-37.0); MCV 86.4 fL (80.0-100.0); Monocytes # (A) 0.5 k/uL (0-1.0); Monocytes % (A) 4 %; Neutrophils % (A) 77 %; Platelet Count 191 k/uL (150-450); RBC 4.85 m/uL (3.80-5.40); RDW 13.2 % (11.5-15.5); WBC 10.4 k/uL (3.8-10.6)
[2020-09-17 09:24] LABS: ALT 19 U/L (4-34); AST 25 U/L (14-36); African American GFR (CKD) >90 (>60 ml/min/1.73 sqM); Alkaline Phosphatase 65 U/L (38-126); Anion Gap 9 mmol/L; Blood Urea Nitrogen 11 mg/dL (7-17); Calcium 9.3 mg/dL (8.4-10.2); Carbon Dioxide 19 mmol/L (22-30); Chloride 111 mmol/L (98-107); Glucose 91 mg/dL (74-99); Lipase 37 U/L (23-300); Non-African American GFR(CKD) >90 (>60 ml/min/1.73 sqM); Potassium 3.9 mmol/L (3.5-5.1); Sodium 139 mmol/L (137-145); Total Bilirubin 0.6 mg/dL (0.2-1.3); Total Protein 6.6 g/dL (6.3-8.2)
--- NOTE | 2020-09-17 09:32 | US ---
EXAMINATION TYPE: US transvaginal DATE OF EXAM: 09/17/2020 COMPARISON: CT and ultrasound August 18, 2020 CLINICAL HISTORY: Left pelvic pain; hx endometriosis/ovar joanna cyst. pain endometrioses TECHNIQUE: Transvaginal (TV). EXAM MEASUREMENTS: Uterus: 9.4 x 5.8 x 5.7 cm Endometrial Stripe: .9 cm Left Ovary: 2.9 x 2.0 x 2.1 cm 1. Uterus: Retroverted wnl 2. Endometrium: wnl 3. Right Ovary: Obscured by overlying bowel gas 4. Left Ovary: appears wnl Spectral, color and waveform doppler imaging shows good arterial and venous flow within the left ov gloria; 5. Bilateral Adnexa: wnl 6. Posterior cul-de-sac: wnl Persistent bulky heterogeneous retroverted uterus. No free fluid. Left ovary is normal in size with satisfactory blood flow. Right ovary not identified. No adnexal mas s. IMPRESSION: Probable fibroid uterus. No acute findings.
[2020-09-17 11:34] LABS: Appearance,Urine Clear (Clear); Bilirubin,Urine Negative (Negative); Blood,Urine Large (Negative); Color,Urine Yellow; Glucose,Urine (UA) Negative (Negative); Ketones,Urine Negative (Negative); Leukocyte Esterase,Urine Negative (Negative); Mucus,Urine Many /hpf; Nitrite,Urine Negative (Negative); PH, Urine 5.5 (5.0-8.0); Protein,Urine Trace (Negative); RBC,Urine >182 /hpf (0-5); Specific Gravity,Urine 1.032 (1.001-1.035); Squamous Epithelial Cell,Urine <1 /hpf (0-4); Urobilinogen,Urine <2.0 mg/dL (<2.0); WBC,Urine 1 /hpf (0-5)
[2020-09-17] MEDS ORDERED: ACET/COD 300 MG/30 MG STARTER PACK 6 TAB BTL PO STA (12:02)
[2020-09-17 12:27] VITALS: BP 110/95; PULSE 60; TEMP 97.7
== END 2020-09-17 12:26 | disposition home or self-care (01) ==
LOC: EC 08:14
DX: R10.32 Left lower quadrant pain (principal); J44.9 Chronic obstructive pulmonary disease, unspecified; Z87.891 Personal history of nicotine dependence; Z88.0 Allergy status to penicillin; Z90.49 Acquired absence of other specified parts of digestive tract; Z88.8 Allergy status to other drugs, medicaments and biological substances
CPT/HCPCS: 99284; 96374; 96375; 96376; 96361; 51798; 36415; 80053; 83690; 85025; 81001; 93976; 76830; J1200; J2405; J1170

== ENCOUNTER 2020-12-15 09:25 | Emergency (ER) | payer BC ==
[2020-12-15 09:37] VITALS: BP 122/81; PULSE 104; RESP 18
[2020-12-15] MEDS ORDERED: IBUPROFEN 400 MG TAB PO STA (12:27)
[2020-12-15] MEDS ORDERED: ACETAMINOPHEN TAB 500 MG TAB PO STA (12:27)
[2020-12-15] MEDS ORDERED: SODIUM CHLORIDE 0.9% 50 ML IVPB ONE (12:45)
[2020-12-15] MEDS ORDERED: BAMLANIVIMAB (EUA) 700 MG, ETESEVIMAB (EUA) 1,400 MG in SODIUM CHLORIDE 0.9% 50 ML IVPB ONE (12:45)
--- NOTE | 2020-12-15 12:45 | XR ---
EXAMINATION TYPE: XR chest 1V portable DATE OF EXAM: 12/15/2020 COMPARISON: Chest x-ray July 07, 2020. CTA chest July 08, 2020. HISTORY: Cough and shortness of breath. COVID positive. TECHNIQUE: Single frontal view of the chest is obtained. FINDINGS: There is no suspicious new focal air space opacity, pleural effusion, or pneumothorax seen . An azygos lobe/fissure is redemonstrated. The cardiac silhouette size is stable and within normal limits. The osseous structures are intact. IMPRESSION: No new acute pulmonary infiltrate.
--- NOTE | 2020-12-15 13:39 | ED ---
General Adult HPI - General Chief complaint: Fever Stated complaint: Covid+, wants antibodies Time Seen by Provider: 12/15/20 12:11 Source: patient, family, RN notes reviewed Mode of arrival: ambulatory Limitations: no limitations - History of Present Illness Initial comments: Patient is a 35-year-old female with history of COPD, presenting to the emerg ency department requesting Covid monoclonal antibodies. Patient states she was diagnosed yesterday with Covid. She's been having fever, body aches, chest congestion and cough. She states her symptoms just started yesterday. Her son is here with similar symptoms. She has been having no abdominal pain, nausea or vomiting, no diarrhea. She still been able to eat and drink. She did not take any Tylenol or Motrin today as she states she "googled it and it was not safe to take them." She denies being . She has no further complaints at this time. Upon arrival to the ER, her temperature is 101.5, pulse is 104, 97% on room air. - Related Data Home Medications Medication Instructions Recorded Confirmed Naproxen 500 mg PO BID PRN 08/18/20 09/17/20 Leuprolide Acetate [Lupron Depot] 3.75 mg SQ QMONTHLY 09/17/20 09/17/20 levonorgestreL [Mirena] 1 implant VAGINAL [id number] 09/17/20 09/17/20 methocarbamoL [Methocarbamol] 500 mg PO Q6H PRN 09/17/20 09/17/20 Previous Rx's Medication Instructions Recorded Albuterol Inhaler [Ventolin Hfa 1 puff INHALATION RT-QID PRN #8 gm 12/15/20 Inhaler] Dexamethasone [Decadron] 6 mg PO DAILY 7 Days #7 tablet 12/15/20 Allergies Allergy/AdvReac Type Severity Reaction Status Date / Time Penicillins AdvReac Severe Rapid Verified 12/15/20 09:37 Heart Rate albuterol AdvReac Rapid Verified 12/15/20 09:37 Heart Rate Review of Systems ROS Statement: Those systems with pertinent positive or pertinent negative responses have been documented in the HPI. ROS Other: All systems not noted in ROS Statement are negative. Past Medical History Past Medical History: COPD Additional Past Medical History / Comment(s): Murmur when young, endometriosis. History of Any Multi-Drug Resistant Organisms: None Reported Past Surgical History: Appendectomy, Section Additional Past Surgical History / Comment(s): x2 c- scetion, reconstructive nASAL SX, lap surgery for endometriosis Past Anesthesia/Blood Transfusion Reactions: No Reported Reaction Past Psychological History: No Psychological Hx Reported Smoking Status: Former smoker Past Alcohol Use History: Rare Past Drug Use History: None Reported - Past Family History Father History Unknown: Yes General Exam - General Exam Comments Initial Comments: GENERAL: Patient is well-developed and well-nourished. Patient is nontoxic and in no acute distress. HEAD: Atraumatic, normocephalic. EYES: Pupils equal round and reactive to light, extraocular movements intact, sclera anicteric, conjunctiva are normal. Eyelids were unremarkable. ENT: Nares patent, oropharynx clear without exudates. Moist mucous membranes. NECK: Normal range of motion, supple without lymphadenopathy or JVD. LUNGS: Unlabored respirations. Breath sounds clear to auscultation bilaterally and equal. No wheezes rales or rhonchi. HEART: Regular rate and rhythm without murmurs, rubs or gallops. ABDOMEN: Soft, nontender, normoactive bowel sounds. No guarding, no rebound. No masses appreciated. MUSCULOSKELETAL: Normal extremities with adequate strength and normal range of motion, no pitting or edema. No clubbing or cyanosis. NEUROLOGICAL: Patient is alert and oriented x 3. SKIN: Warm, Dry, normal turgor, no rashes or lesions noted. Limitations: no limitations Course Vital Signs 12/15/20 09:34 Temperature 101.5 F H Pulse Rate 104 H Respiratory 18 Rate Blood Pressure 122/81 O2 Sat by Pulse 97 Oximetry Medical Decision Making - Medical Decision Making She is a 35-year-old female here requesting Covid antibodies. Her test is positive for Covid. She arrives slightly febrile and tachycardia, did not take any Tylenol or Motrin today. I did give her a dose of both. Patient did agree to monoclonal antibodies. She received these without complications. Chest x- ray shows no acute process. She'll be given prescription for albuterol inhaler as well as steroids. She is stable for discharge. Return parameters were discussed with her and she verbalized understanding. - Lab Data Lab Results 12/15/20 Range/Units 09:44 Coronavirus (PCR) Detected A (Not Detectd) Disposition Clinical Impression: COVID-19 Disposition: HOME SELF-CARE Condition: Stable Instructions (If sedation given, give patient instructions): Coronavirus Dise ase 2019 (COVID-19) Additional Instructions: Please return to the Emergency Department if symptoms worsen or any other concerns. Take steroids as prescribed starting today. Use inhaler as needed for shortness of breath or cough. Alternate between Tylenol and Motrin for fever control. Follow up with your primary care as needed. Prescriptions: Dexamethasone [Decadron] 6 mg PO DAILY 7 Days #7 tablet Albuterol Inhaler [Ventolin Hfa Inhaler] 1 puff INHALATION RT-QID PRN #8 gm PRN Reason: Shortness Of Breath Is patient prescribed a controlled substance at d/c from ED?: No Referrals: Rosa Lozano MD [Primary Care Provider] - 1-2 days Time of Disposition: 14:35
[2020-12-15 15:10] VITALS: TEMP 98.9
== END 2020-12-15 14:40 | disposition home or self-care (01) ==
LOC: EC 09:25
DX: U07.1 COVID-19 (principal); J44.9 Chronic obstructive pulmonary disease, unspecified; Z88.0 Allergy status to penicillin; Z88.8 Allergy status to other drugs, medicaments and biological substances; Z87.891 Personal history of nicotine dependence
CPT/HCPCS: 99283 ×2; 87635; 71045; M0243; J3490

== ENCOUNTER 2022-11-03 03:09 | Emergency (ER) | payer BC ==
[2022-11-03 03:14] VITALS: TEMP 98.2
[2022-11-03] MEDS ORDERED: MORPHINE SULFATE 4 MG/ML SYRINGE IV STA ×2 (04:07→05:45)
[2022-11-03] MEDS ORDERED: ONDANSETRON 4 MG/2 ML VIAL IVP STA (04:07)
[2022-11-03] MEDS ORDERED: SODIUM CHLORIDE 0.9% 500 ML 500 ML IV STA (04:07)
[2022-11-03 04:33] LABS: Basophils % (A) 0 %; Eosinophils # (A) 0.3 k/uL (0-0.7); Eosinophils % (A) 3 %; HCT 52.2 % (34.0-46.0); HGB 17.3 gm/dL (11.4-16.0); Lymphocytes # (A) 1.7 k/uL (1.0-4.8); Lymphocytes % (A) 17 %; MCH 28.8 pg (25.0-35.0); MCHC 33.2 g/dL (31.0-37.0); MCV 86.8 fL (80.0-100.0); Mean Platelet Volume 7.8; Monocytes # (A) 0.3 k/uL (0-1.0); Monocytes % (A) 3 %; Neutrophils # (A) 7.5 k/uL (1.3-7.7); Neutrophils % (A) 76 %; Platelet Count 157 k/uL (150-450); RBC 6.01 m/uL (3.80-5.40); RDW 12.4 % (11.5-15.5); WBC 9.9 k/uL (3.8-10.6)
[2022-11-03 04:54] LABS: ALT 34 U/L (4-34); AST 31 U/L (14-36); African American GFR (CKD) >90 (>60 ml/min/1.73 sqM); Alkaline Phosphatase 68 U/L (38-126); Amylase 55 U/L (30-110); Anion Gap 9 mmol/L; Blood Urea Nitrogen 9 mg/dL (7-17); C Reactive Protein <0.5 mg/dL (<1.0); Calcium 8.7 mg/dL (8.4-10.2); Carbon Dioxide 21 mmol/L (22-30); Chloride 106 mmol/L (98-107); Glucose 92 mg/dL (74-99); Lipase 68 U/L (23-300); Non-African American GFR(CKD) >90 (>60 ml/min/1.73 sqM); Potassium 3.9 mmol/L (3.5-5.1); Sodium 136 mmol/L (137-145); Total Bilirubin 0.4 mg/dL (0.2-1.3); Total Protein 7.1 g/dL (6.3-8.2)
--- NOTE | 2022-11-03 05:18 | CT ---
EXAM: CT Abdomen and Pelvis Without Intravenous Contrast CLINICAL HISTORY: ITS.REASON CT Reason: low abdominbal painb TECHNIQUE: Axial computed tomography images of the abdomen and pelvis without intravenous contrast. CTDI is 11.4 mGy and DLP is 642.5 mGy-cm. This CT exam was performed using one or more of the following dose reduction techniques: automated exposure control, adjustment of the mA and/or kV according to patient size, and/or use of iterative reconstruction technique. COMPARISON: CT abdomen pelvis performed 08/18/20 FINDINGS: Limitations: Evaluation of the solid and hollow viscera limited due to lack of oral and IV contrast. Within this constraint: Lung bases: Unremarkable. No mass. No consolidation. ABDOMEN: Liver: Unremarkable. Gallbladder and bile ducts: No calcified stones. No ductal dilation. Pancreas: Unremarkable. No ductal dilation. Spleen: Unremarkable. No splenomegaly. Adrenals: Unremarkable. No mass. Kidneys and ureters: No obstructing stones. No hydronephrosis. Stomach and bowel: Unremarkable. No obstruction. No mucosal thickening. PELVIS: Appendix: Appendectomy. Bladder: Unremarkable. No stones. Reproductive: IUD within the uterus. ABDOMEN and PELVIS: Intraperitoneal space: No free air. No significant fluid collection. 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 No acute fracture. No dislocation. Soft tissues: Unremarkable. Vasculature: No abdominal aortic aneurysm. Lymph nodes: No enlarged lymph nodes. IMPRESSION: Evaluation of the solid and hollow viscera limited due to lack of oral and IV contrast. Within this constraint: No acute findings in the abdomen or pelvis.
[2022-11-03 06:08] LABS: Appearance,Urine Clear (Clear); Bilirubin,Urine Negative (Negative); Blood,Urine Large (Negative); Color,Urine Colorless; Glucose,Urine (UA) Negative (Negative); Ketones,Urine Negative (Negative); Leukocyte Esterase,Urine Trace (Negative); Mucus,Urine Rare /hpf; Nitrite,Urine Negative (Negative); PH, Urine 6.5 (5.0-8.0); Protein,Urine Negative (Negative); RBC,Urine 1 /hpf (0-5); Squamous Epithelial Cell,Urine 1 /hpf (0-4); Urobilinogen,Urine <2.0 mg/dL (<2.0); WBC,Urine 6 /hpf (0-5)
--- NOTE | 2022-11-03 07:06 | ED ---
Abdominal Pain HPI <Danielle Green - Last Filed: 11/03/22 09:02> - General Source: patient, family Mode of arrival: wheelchair Limitations: no limitations - History of Present Illness MD Complaint: abdominal pain -: hour(s) Location: LLQ Radiation: L flank Migration to: no migration Severity: severe Quality: aching, sharp Consistency: constant Improves With: nothing Worsens With: nothing Associated Symptoms: nausea - Related Data LMP (females 10-50): 3 weeks <Morales Talbert - Last Filed: 11/15/22 07:35> - General Chief Complaint: Abdominal Pain Stated Complaint: lower abd pain Time Seen by Provider: 11/03/22 03:25 - History of Present Illness Initial Comments: This patient is 37-year-old woman with history of intermittent pelvic pains that she states she was told were due to endometriosis. She states she started having symptoms a few hours ago. She states this is a little different than usual in that it is more one side, but otherwise pain of similar type. (Morales Talbert) - Related Data Home Medications Medication Instructions Recorded Confirmed Naproxen 500 mg PO BID PRN 08/18/20 09/17/20 Leuprolide Acetate [Lupron Depot] 3.75 mg SQ QMONTHLY 09/17/20 09/17/20 levonorgestreL [Mirena] 1 implant VAGINAL [id number] 09/17/20 09/17/20 methocarbamoL [Methocarbamol] 500 mg PO Q6H PRN 09/17/20 09/17/20 Previous Rx's Medication Instructions Recorded Albuterol Inhaler [Ventolin Hfa 1 puff INHALATION RT-QID PRN #8 gm 12/15/20 Inhaler] dexAMETHasone [Decadron] 6 mg PO DAILY 7 Days #7 tablet 12/15/20 HYDROcodone/APAP 7.5-325MG [Cushing 1 tab PO Q6HR PRN 3 Days #12 tab 11/03/22 7.5-325] Ibuprofen [Motrin] 600 mg PO Q8HR PRN #30 tab 11/03/22 Allergies Allergy/AdvReac Type Severity Reaction Status Date / Time Penicillins AdvReac Severe Rapid Verified 11/03/22 03:12 Heart Rate albuterol AdvReac Rapid Verified 11/03/22 03:12 Heart Rate Review of Systems ROS Other: All systems not noted in ROS Statement are negative. <Danielle Green - Last Filed: 11/03/22 09:02> ROS Other: All systems not noted in ROS Statement are negative. Constitutional: Denies: fever, chills Respiratory: Denies: cough, dyspnea Cardiovascular: Denies: chest pain Gastrointestinal: Reports: abdominal pain, nausea, vomiting. Denies: diarrhea, melena, hematochezia Genitourinary: Denies: dysuria, frequency, hematuria, abnormal menses Musculoskeletal: Denies: back pain Skin: Denies: rash Neurological: Denies: headache, weakness <Morales Talbert - Last Filed: 11/15/22 07:35> ROS Statement: Those systems with pertinent positive or pertinent negative responses have been documented in the HPI. Past Medical History Past Medical History: COPD Additional Past Medical History / Comment(s): Murmur when young, endometriosis. History of Any Multi-Drug Resistant Organisms: None Reported Past Surgical History: Appendectomy, Section Additional Past Surgical History / Comment(s): x2 c- scetion, reconstructive nASAL SX, lap surgery for endometriosis Past Anesthesia/Blood Transfusion Reactions: No Reported Reaction Past Psychological History: No Psychological Hx Reported Smoking Status: Former smoker Past Alcohol Use History: Rare Past Drug Use History: None Reported - Past Family History Father History Unknown: Yes <GaliMorales - Last Filed: 11/15/22 07:35> General Exam Limitations: no limitations General appearance: alert, in no apparent distress Head exam: Present: atraumatic, normocephalic Eye exam: Present: normal appearance. Absent: scleral icterus, conjunctival injection Respiratory exam: Present: normal lung sounds bilaterally. Absent: respiratory distress, wheezes, rales, rhonchi, stridor Cardiovascular Exam: Present: regular rate, normal rhythm, normal heart sounds. Absent: systolic murmur, diastolic murmur, rubs, gallop GI/Abdominal exam: Present: soft, tenderness, guarding. Absent: distended, rebound, rigid, mass, pulsatile mass Extremities exam: Present: normal inspection, normal capillary refill. Absent: pedal edema, calf tenderness Back exam: Present: normal inspection. Absent: CVA tenderness (R), CVA tenderness (L) Neurological exam: Present: alert Skin exam: Present: warm, dry, intact, normal color. Absent: rash <Morales Talbert - Last Filed: 11/15/22 07:35> - General Exam Comments Initial Comments: Was pt. sent in by a medical professional or institution (NELLA Monae, STUDENT MINISTRIES DIRECTOR, urgent care, hospital, or alf...) When possible be specific @ -[No] Did you speak to anyone other than the patient for history (EMS, parent, family, police, friend...)? What history was obtained from this source @ -[No] Did you review nursing and triage notes (agree or disagree)? Why? @ -[I reviewed and agree with nursing and triage notes] Were old charts reviewed (outside hosp., previous admission, EMS record, old EKG, old radiological studies, urgent care reports/EKG's, alf records)? Report findings @ -[No old charts were reviewed] Differential Diagnosis (chest pain, altered mental status, abdominal pain women, abdominal pain men, vaginal bleeding, weakness, fever, dyspnea, syncope, headache, dizziness, GI bleed, back pain, seizure, CVA, palpatations, mental health, musculoskeletal)? @ -[Differential Abdominal Pain Women: Appendicitis, Cholecystitis, diverticulosis, ischemic bowel, pancreatitis, hepatitis, UTI, gastroenteritis, AAA, incarcerated hernia, bowel obstruction, constipation, inflammatory bowel, hepatitis, peptic ulcer disease, splenic infarction, perforated viscus, vulvitis, ovarian torsion, PID, kidney stone, placenta abruption, this is not meant to be an all-inclusive list EKG interpreted by me (3pts min.). @ -[As above] X-rays interpreted by me (1pt min.). @ -[None done] CT interpreted by me (1pt min.). @ -[None done] U/S interpreted by me (1pt. min.). @ -[None done] What testing was considered but not performed or refused? (CT, X-rays, U/S, labs)? Why? @ -[None] What meds were considered but not given or refused? Why? @ -[None] Did you discuss the management of the patient with other professionals (professionals i.e. NELLA Monae, STUDENT MINISTRIES DIRECTOR, lab, RT, psych nurse, medical social consultant, relief cook, teacher, special service officer, welfare case worker)? Give summary @ -[No] Was smoking cessation discussed for >3mins.? @ -[No] Was critical care preformed (if so, how long)? @ -[No] Were there social determinants of health that impacted care today? How? (Homelessness, low income, unemployed, alcoholism, drug addiction, transportation, low edu. Level, literacy, decrease access to med. care, intermediate, rehab)? @ -[No] Was there de-escalation of care discussed even if they declined (Discuss DNR or withdrawal of care, Hospice)? DNR status @ -[No] What co-morbidities impacted this encounter? (DM, HTN, Smoking, COPD, CAD, Ca ncer, CVA, ARF, Chemo, Hep., AIDS, mental health diagnosis, sleep apnea, morbid obesity)? @ -[None] Was patient admitted / discharged? Hospital course, mention meds given and route, prescriptions, significant lab abnormalities, going to OR and other pertinent info. @ -[Patient is a 37-year-old woman with history of chronic pelvic pains. Given that this pain was more little unilateral in usual, the patient to have ultrasound and this was pending at time of shift change. Subsequent review of records reveals negative for torsion. Undiagnosed new problem with uncertain prognosis? @ -[No] Drug Therapy requiring intensive monitoring for toxicity (Heparin, Nitro, Insulin, Cardizem)? @ -[No] Were any procedures done? @ -[No] Diagnosis/symptom? @ -[Acute pelvic pain, suspected endometriosis Acute, or Chronic, or Acute on Chronic? @ Acute on chronic Uncomplicated (without systemic symptoms) or Complicated (systemic symptoms)? @ -[Uncomplicated Side effects of treatment? @ -[No] Exacerbation, Progression, or Severe Exacerbation? @ -[No] Poses a threat to life or bodily function? How? (Chest pain, [place], [place], pneumonia, PE, COPD, DKA, ARF, appy, cholecystitis, CVA, Diverticulitis, Homicidal, Suicidal, threat to staff... and all critical care pts) @ -[No] (Morales Talbert) Course Vital Signs 11/03/22 11/03/22 11/03/22 03:10 06:14 09:06 Temperature 98.2 F Pulse Rate 90 67 75 Respiratory 18 18 16 Rate Blood Pressure 137/93 117/77 111/76 O2 Sat by Pulse 100 96 96 Oximetry Medical Decision Making - Lab Data Result diagrams: 11/03/22 04:23 11/03/22 04:23 <Danielle Green - Last Filed: 11/03/22 09:02> - Lab Data Result diagrams: 11/03/22 04:23 11/03/22 04:23 <Morales Talbert - Last Filed: 11/15/22 07:35> - Medical Decision Making Patient was signed out to me awaiting ultrasound read. Ultrasound demonstrates no ovarian torsion. Patient requesting additional pain medications. Given 1 mg of Dilaudid. Discussed the diagnosis, differential and treatment options. Patient stable for discharge home. Will be prescribed pain medications to alternate. Instructed to call her KEY ACCOUNT REPRESENTATIVE and return for any new or worsening symptoms. Patient discharged in stable condition (Danielle Green) - Lab Data Lab Results 11/03/22 11/03/22 11/03/22 Range/Units 04:23 04:23 04:23 WBC 9.9 (3.8-10.6) k/uL RBC 6.01 H (3.80-5.40) m/uL Hgb 17.3 H (11.4-16.0) gm/dL Hct 52.2 H (34.0-46.0) % MCV 86.8 (80.0-100.0) fL MCH 28.8 (25.0-35.0) pg MCHC 33.2 (31.0-37.0) g/dL RDW 12.4 (11.5-15.5) % Plt Count 157 (150-450) k/uL MPV 7.8 Neutrophils % 76 % Lymphocytes % 17 % Monocytes % 3 % Eosinophils % 3 % Basophils % 0 % Neutrophils # 7.5 (1.3-7.7) k/uL Lymphocytes # 1.7 (1.0-4.8) k/uL Monocytes # 0.3 (0-1.0) k/uL Eosinophils # 0.3 (0-0.7) k/uL Basophils # 0.0 (0-0.2) k/uL Sodium (137-145) mmol/L Potassium (3.5-5.1) mmol/L Chloride (98-107) mmol/L Carbon Dioxide (22-30) mmol/L Anion Gap mmol/L BUN (7-17) mg/dL Creatinine (0.52-1.04) mg/dL Est GFR (CKD-EPI)AfAm (>60 ml/min/1.73 sqM) Est GFR (CKD-EPI)NonAf (>60 ml/min/1.73 sqM) Glucose (74-99) mg/dL Calcium (8.4-10.2) mg/dL Total Bilirubin (0.2-1.3) mg/dL AST (14-36) U/L ALT (4-34) U/L Alkaline Phosphatase (38-126) U/L C-Reactive Protein (<1.0) mg/dL Total Protein (6.3-8.2) g/dL Albumin (3.5-5.0) g/dL Amylase (30-110) U/L Lipase (23-300) U/L Urine Color Colorless Urine Appearance Clear (Clear) Urine pH 6.5 (5.0-8.0) Ur Specific Roscoe 1.010 (1.001-1.035) Urine Protein Negative (Negative) Urine Glucose (UA) Negative (Negative) Urine Ketones Negative (Negative) Urine Blood Large H (Negative) Urine Nitrite Negative (Negative) Urine Bilirubin Negative (Negative) Urine Urobilinogen <2.0 (<2.0) mg/dL Ur Leukocyte Esterase Trace H (Negative) Urine RBC 1 (0-5) /hpf Urine WBC 6 H (0-5) /hpf Ur Squamous Epith Cells 1 (0-4) /hpf Urine Mucus Rare H (None) /hpf Urine HCG, Qual Not Detected (Not Detectd) 11/03/22 Range/Units 04:23 WBC (3.8-10.6) k/uL RBC (3.80-5.40) m/uL Hgb (11.4-16.0) gm/dL Hct (34.0-46.0) % MCV (80.0-100.0) fL MCH (25.0-35.0) pg MCHC (31.0-37.0) g/dL RDW (11.5-15.5) % Plt Count (150-450) k/uL MPV Neutrophils % % Lymphocytes % % Monocytes % % Eosinophils % % Basophils % % Neutrophils # (1.3-7.7) k/uL Lymphocytes # (1.0-4.8) k/uL Monocytes # (0-1.0) k/uL Eosinophils # (0-0.7) k/uL Basophils # (0-0.2) k/uL Sodium 136 L (137-145) mmol/L Potassium 3.9 (3.5-5.1) mmol/L Chloride 106 (98-107) mmol/L Carbon Dioxide 21 L (22-30) mmol/L Anion Gap 9 mmol/L BUN 9 (7-17) mg/dL Creatinine 0.74 (0.52-1.04) mg/dL Est GFR (CKD-EPI)AfAm >90 (>60 ml/min/1.73 sqM) Est GFR (CKD-EPI)NonAf >90 (>60 ml/min/1.73 sqM) Glucose 92 (74-99) mg/dL Calcium 8.7 (8.4-10.2) mg/dL Total Bilirubin 0.4 (0.2-1.3) mg/dL AST 31 (14-36) U/L ALT 34 (4-34) U/L Alkaline Phosphatase 68 (38-126) U/L C-Reactive Protein <0.5 (<1.0) mg/dL Total Protein 7.1 (6.3-8.2) g/dL Albumin 4.0 (3.5-5.0) g/dL Amylase 55 (30-110) U/L Lipase 68 (23-300) U/L Urine Color Urine Appearance (Clear) Urine pH (5.0-8.0) Ur Specific [place] (1.001-1.035) Urine Protein (Negative) Urine Glucose (UA) (Negative) Urine Ketones (Negative) Urine Blood (Negative) Urine Nitrite (Negative) Urine Bilirubin (Negative) Urine Urobilinogen (<2.0) mg/dL Ur Leukocyte Esterase (Negative) Urine RBC (0-5) /hpf Urine WBC (0-5) /hpf Ur Squamous Epith Cells (0-4) /hpf Urine Mucus (None) /hpf Urine HCG, Qual (Not Detectd) Disposition Is patient prescribed a controlled substance at d/c from ED?: Yes When asked, does pt state using other controlled substances?: No If prescribed controlled substance>3 days was MAPS reviewed?: Prescribed <3 Days If opioid is for acute pain is fill amount 7 days or less?: Yes Time of Disposition: 08:47 <Danielle Green - Last Filed: 11/03/22 09:02> <Morales Talbert - Last Filed: 11/15/22 07:35> Clinical Impression: Pelvic pain, Endometriosis Disposition: HOME SELF-CARE Condition: Stable Instructions (If sedation given, give patient instructions): Pelvic Pain in Women (ED) Additional Instructions: Please alternate taking Motrin and Tylenol every 4 hours. Follow up with your KEY ACCOUNT REPRESENTATIVE and return for any new or worsening symptoms Prescriptions: Ibuprofen [Motrin] 600 mg PO Q8HR PRN #30 tab PRN Reason: Pain HYDROcodone/APAP 7.5-325MG [Cushing 7.5-325] 1 tab PO Q6HR PRN 3 Days #12 tab PRN Reason: Pain Referrals: Rosa Lozano MD [Primary Care Provider] - 1-2 days
[2022-11-03] MEDS ORDERED: HYDROmorphone 1 MG/ML 1 ML SYRINGE IVP STA ×2 (07:57→08:43)
--- NOTE | 2022-11-03 07:59 | US ---
EXAMINATION TYPE: US pelvis complete transvag plus Dopplers DATE OF EXAM: 11/03/2022 COMPARISON: 09/17/2020 CLINICAL INDICATION: Female, 37 years old with history of LLQ pain, possible torsion; IUD x 2 years. Hx of endometriosis. Left side pain. x 2. TECHNIQUE: Transvaginal (TV) and Transabdominal (TA) . Transabdominal sonographic images of the pel vis were acquired. Transvaginal sonographic images were medically necessary to better assess the fol lowing anatomy: Ovaries, endometriosis. Color Doppler and spectral waveform analysis of the ovarian a rteries and veins. Date of LMP: Unknown, EXAM MEASUREMENTS: Uterus: 8.4 x 5.7 x 4.9 cm Endometrial Stripe: 0.4 cm Right Ovary: 3.5 x 1.4 x 2.4 cm for volume of 6 mL Left Ovary: 3.4 x 2.1 x 2.0 cm for a volume of 7.3 mL. 1. Uterus: Retroflexed. The myometrium is slightly heterogenous. Fluid seen at scar = 0.7 x 0.7 x 0.8 cm 2. Endometrium: IUD visualized. 3. Right Ovary: wnl 4. Left Ovary: wnl Spectral, color and waveform doppler imaging shows good arterial and venous flow within the ovaries ; there is no evidence for ovarian torsion. 5. Bilateral Adnexa: no free fluid 6. Posterior cul-de-sac: no free fluid IMPRESSION: 1. Retroflexed uterus with a scar. There is a 8 x 7 mm fluid area at the scar suspected to represent a scar niche. 2. Normal sonographic appearance to the ovaries without evidence for ovarian torsion. 3. IUD seen. It appears appropriately situated within the uterine cavity.
[2022-11-03 09:11] VITALS: BP 111/76; PULSE 75; RESP 16
== END 2022-11-03 09:09 | disposition home or self-care (01) ==
LOC: EC 03:09
DX: N80.9 Endometriosis, unspecified (principal); J44.9 Chronic obstructive pulmonary disease, unspecified; Z87.891 Personal history of nicotine dependence; Z88.0 Allergy status to penicillin; Z88.8 Allergy status to other drugs, medicaments and biological substances; Z90.49 Acquired absence of other specified parts of digestive tract
CPT/HCPCS: 36415; 80053; 82150; 83690; 85025; 86140; 81001; 81025; 93975; 76856; 76830; 74176; 99284; 96374; 96375 ×2; 96376 ×2; 96361 ×5; J2270; J2405; J1170

== ENCOUNTER 2022-11-30 17:05 | Emergency (ER) | payer BC ==
[2022-11-30 17:25] VITALS: RESP 18
[2022-11-30] MEDS ORDERED: KETOROLAC 15 MG/ML 1 ML VIAL IVP STA (17:37)
[2022-11-30] MEDS ORDERED: HYDROmorphone 0.5 MG/0.5 ML SYRINGE IVP STA ×2 (17:37→19:16)
--- NOTE | 2022-11-30 17:37 | ED ---
General Adult HPI - General Chief complaint: Abdominal Pain Stated complaint: lower abd pain Time Seen by Provider: 11/30/22 17:16 Source: patient, RN notes reviewed Mode of arrival: wheelchair Limitations: no limitations - History of Present Illness Initial comments: 37-year-old female with past medical history of endometriosis presents to the emergency department for chief complaint of left-sided lower abdominal pain. She states that this started suddenly today and is characteristic of her endometriosis pain. She reports the pain is in the same location as usual and radiates to her rectum and pelvis. She states that she is currently on her menst rual cycle. She admits to taking Tylenol and Motrin at home. Last Motrin was at noon. She states that she was on Lupron for her endometriosis but was recently taken off and started having severe pain again that occurs with her monthly menstrual cycle. Denies fever, chills. - Related Data Home Medications Medication Instructions Recorded Confirmed Naproxen 500 mg PO BID PRN 08/18/20 09/17/20 Leuprolide Acetate [Lupron Depot] 3.75 mg SQ QMONTHLY 09/17/20 09/17/20 levonorgestreL [Mirena] 1 implant VAGINAL [id number] 09/17/20 09/17/20 methocarbamoL [Methocarbamol] 500 mg PO Q6H PRN 09/17/20 09/17/20 Previous Rx's Medication Instructions Recorded Albuterol Inhaler [Ventolin Hfa 1 puff INHALATION RT-QID PRN #8 gm 12/15/20 Inhaler] dexAMETHasone [Decadron] 6 mg PO DAILY 7 Days #7 tablet 12/15/20 HYDROcodone/APAP 7.5-325MG [[place] 1 tab PO Q6HR PRN 3 Days #12 tab 11/03/22 7.5-325] Ibuprofen [Motrin] 600 mg PO Q8HR PRN #30 tab 11/03/22 Allergies Allergy/AdvReac Type Severity Reaction Status Date / Time Penicillins AdvReac Severe Rapid Verified 11/30/22 17:11 Heart Rate albuterol AdvReac Rapid Verified 11/30/22 17:11 Heart Rate Review of Systems ROS Statement: Those systems with pertinent positive or pertinent negative responses have been documented in the HPI. ROS Other: All systems not noted in ROS Statement are negative. Past Medical History Past Medical History: COPD Additional Past Medical History / Comment(s): Murmur when young, endometriosis. History of Any Multi-Drug Resistant Organisms: None Reported Past Surgical History: Appendectomy, Section Additional Past Surgical History / Comment(s): x2 c- scetion, reconstructive nASAL SX, lap surgery for endometriosis Past Anesthesia/Blood Transfusion Reactions: No Reported Reaction Past Psychological History: No Psychological Hx Reported Smoking Status: Former smoker Past Alcohol Use History: Rare Past Drug Use History: None Reported - Past Family History Father History Unknown: Yes General Exam Limitations: no limitations General appearance: alert Head exam: Present: atraumatic, normocephalic, normal inspection Eye exam: Present: normal appearance, PERRL, EOMI. Absent: scleral icterus, conjunctival injection, periorbital swelling ENT exam: Present: normal exam, mucous membranes moist Respiratory exam: Present: normal lung sounds bilaterally. Absent: respiratory distress, wheezes, rales, rhonchi, stridor Cardiovascular Exam: Present: regular rate, normal rhythm, normal heart sounds. Absent: systolic murmur, diastolic murmur, rubs, gallop, clicks GI/Abdominal exam: Present: soft, normal bowel sounds. Absent: distended, tenderness, guarding, rebound, rigid Neurological exam: Present: alert, oriented X3 Psychiatric exam: Present: normal affect, normal mood Skin exam: Present: warm, dry, intact, normal color. Absent: rash Course Vital Signs 11/30/22 11/30/22 17:09 19:19 Temperature 98.2 F Pulse Rate 71 67 Respiratory 18 18 Rate Blood Pressure 108/72 124/77 O2 Sat by Pulse 99 99 Oximetry Medical Decision Making - Medical Decision Making Was pt. sent in by a medical professional or institution (, PA, SHOP FIRER/FIREMAN, urgent care, hospital, or half-way...) When possible be specific @ -No Did you speak to anyone other than the patient for history (EMS, parent, family, police, friend...)? What history was obtained from this source @ -No Did you review nursing and triage notes (agree or disagree)? Why? @ -I reviewed and agree with nursing and triage notes Were old charts reviewed (outside hosp., previous admission, EMS record, old EKG, old radiological studies, urgent care reports/EKG's, half-way records)? Report findings @ -No old charts were reviewed Differential Diagnosis (chest pain, altered mental status, abdominal pain women, abdominal pain men, vaginal bleeding, weakness, fever, dyspnea, syncope, headache, dizziness, GI bleed, back pain, seizure, CVA, palpatations, mental health, musculoskeletal)? @ -Differential Abdominal Pain Women: Appendicitis, Cholecystitis, diverticulosis, ischemic bowel, pancreatitis, hepatitis, UTI, gastroenteritis, AAA, incarcerated hernia, bowel obstruction, constipation, inflammatory bowel, hepatitis, peptic ulcer disease, splenic infarction, perforated viscus, vulvitis, ovarian torsion, PID, kidney stone, placenta abruption, this is not meant to be an all-inclusive list EKG interpreted by me (3pts min.). @ -None X-rays interpreted by me (1pt min.). @ -None done CT interpreted by me (1pt min.). @ -None done U/S interpreted by me (1pt. min.). @ -Ultrasound pelvic showed no acute process What testing was considered but not performed or refused? (CT, X-rays, U/S, labs)? Why? @ -None What meds were considered but not given or refused? Why? @ -None Did you discuss the management of the patient with other professionals (professionals i.e. , PA, SHOP FIRER/FIREMAN, lab, RT, psych nurse, delinquency prevention social worker, scow captain, teacher, animal control officer, case management associate)? Give summary @ -No Was smoking cessation discussed for >3mins.? @ -No Was critical care preformed (if so, how long)? @ -No Were there social determinants of health that impacted care today? How? (Homeles sness, low income, unemployed, alcoholism, drug addiction, transportation, low edu. Level, literacy, decrease access to med. care, group home, rehab)? @ -No Was there de-escalation of care discussed even if they declined (Discuss DNR or withdrawal of care, Hospice)? DNR status @ -No What co-morbidities impacted this encounter? (DM, HTN, Smoking, COPD, CAD, Cancer, CVA, ARF, Chemo, Hep., AIDS, mental health diagnosis, sleep apnea, morbid obesity)? @ -None Was patient admitted / discharged? Hospital course, mention meds given and route, prescriptions, significant lab abnormalities, going to OR and other pertinent info. @ -Discharged. 37 year old presents emergency department chief complaint of abdominal and pelvic pain x1 day. She reports a history of endometriosis and states that this pain is the same as her pain during her menstrual cycle monthly. She follows closely with her results technician. Laboratory studies obtained which showed CBC, CMP, UA essentially unremarkable. HCG negative. Pelvic Ultrasound shows no evidence of acute process. Patient's pain was managed in the ED. Patient advised of findings and agreeable with discharge plan and follow-up with her ENGINEER FISHING VESSEL on outpatient basis. Patient stable at time of discharge. Case discussed with Dr. Heredia Undiagnosed new problem with uncertain prognosis? @ -No Drug Therapy requiring intensive monitoring for toxicity (Heparin, Nitro, Insulin, Cardizem)? @ -No Were any procedures done? @ -No Diagnosis/symptom? @ -abdominal pain, endometriosis Acute, or Chronic, or Acute on Chronic? @ -acute on chronic Uncomplicated (without systemic symptoms) or Complicated (systemic symptoms)? @ -uncomplicated Side effects of treatment? @ -No Exacerbation, Progression, or Severe Exacerbation? @ -No Poses a threat to life or bodily function? How? (Chest pain, [place], [place], pneumonia, PE, COPD, DKA, ARF, appy, cholecystitis, CVA, Diverticulitis, Homicidal, Suicidal, threat to staff... and all critical care pts) @ -No - Lab Data Result diagrams: 11/30/22 17:50 11/30/22 17:50 Lab Results 11/30/22 11/30/22 11/30/22 Range/Units 17:50 17:50 17:50 WBC 10.6 (3.8-10.6) k/uL RBC 4.88 (3.80-5.40) m/uL Hgb 14.7 (11.4-16.0) gm/dL Hct 42.0 (34.0-46.0) % MCV 86.1 (80.0-100.0) fL MCH 30.1 (25.0-35.0) pg MCHC 35.0 (31.0-37.0) g/dL RDW 12.1 (11.5-15.5) % Plt Count 183 (150-450) k/uL MPV 8.1 Neutrophils % 76 % Lymphocytes % 18 % Monocytes % 3 % Eosinophils % 2 % Basophils % 0 % Neutrophils # 8.1 H (1.3-7.7) k/uL Lymphocytes # 1.9 (1.0-4.8) k/uL Monocytes # 0.4 (0-1.0) k/uL Eosinophils # 0.2 (0-0.7) k/uL Basophils # 0.0 (0-0.2) k/uL Sodium 138 (137-145) mmol/L Potassium 4.0 (3.5-5.1) mmol/L Chloride 108 H (98-107) mmol/L Carbon Dioxide 22 (22-30) mmol/L Anion Gap 8 mmol/L BUN 11 (7-17) mg/dL Creatinine 0.65 (0.52-1.04) mg/dL Est GFR (CKD-EPI)AfAm >90 (>60 ml/min/1.73 sqM) Est GFR (CKD-EPI)NonAf >90 (>60 ml/min/1.73 sqM) Glucose 90 (74-99) mg/dL Calcium 9.1 (8.4-10.2) mg/dL Total Bilirubin 0.4 (0.2-1.3) mg/dL AST 27 (14-36) U/L ALT 22 (4-34) U/L Alkaline Phosphatase 64 (38-126) U/L Total Protein 6.9 (6.3-8.2) g/dL Albumin 4.1 (3.5-5.0) g/dL Lipase 58 (23-300) U/L Urine Color Light Yellow Urine Appearance Clear (Clear) Urine pH 5.5 (5.0-8.0) Ur Specific [place] 1.025 (1.001-1.035) Urine Protein Negative (Negative) Urine Glucose (UA) Negative (Negative) Urine Ketones Negative (Negative) Urine Blood Large (Negative) Urine Nitrite Negative (Negative) Urine Bilirubin Negative (Negative) Urine Urobilinogen <2.0 (<2.0) mg/dL Ur Leukocyte Esterase Negative (Negative) Urine HCG, Qual (Not Detectd) 11/30/22 Range/Units 19:13 WBC (3.8-10.6) k/uL RBC (3.80-5.40) m/uL Hgb (11.4-16.0) gm/dL Hct (34.0-46.0) % MCV (80.0-100.0) fL MCH (25.0-35.0) pg MCHC (31.0-37.0) g/dL RDW (11.5-15.5) % Plt Count (150-450) k/uL MPV Neutrophils % % Lymphocytes % % Monocytes % % Eosinophils % % Basophils % % Neutrophils # (1.3-7.7) k/uL Lymphocytes # (1.0-4.8) k/uL Monocytes # (0-1.0) k/uL Eosinophils # (0-0.7) k/uL Basophils # (0-0.2) k/uL Sodium (137-145) mmol/L Potassium (3.5-5.1) mmol/L Chloride (98-107) mmol/L Carbon Dioxide (22-30) mmol/L Anion Gap mmol/L BUN (7-17) mg/dL Creatinine (0.52-1.04) mg/dL Est GFR (CKD-EPI)AfAm (>60 ml/min/1.73 sqM) Est GFR (CKD-EPI)NonAf (>60 ml/min/1.73 sqM) Glucose (74-99) mg/dL Calcium (8.4-10.2) mg/dL Total Bilirubin (0.2-1.3) mg/dL AST (14-36) U/L ALT (4-34) U/L Alkaline Phosphatase (38-126) U/L Total Protein (6.3-8.2) g/dL Albumin (3.5-5.0) g/dL Lipase (23-300) U/L Urine Color Urine Appearance (Clear) Urine pH (5.0-8.0) Ur Specific [place] (1.001-1.035) Urine Protein (Negative) Urine Glucose (UA) (Negative) Urine Ketones (Negative) Urine Blood (Negative) Urine Nitrite (Negative) Urine Bilirubin (Negative) Urine Urobilinogen (<2.0) mg/dL Ur Leukocyte Esterase (Negative) Urine HCG, Qual Not Detected (Not Detectd) Disposition Clinical Impression: Endometriosis, Abdominal pain Disposition: HOME SELF-CARE Condition: Stable Instructions (If sedation given, give patient instructions): Abdominal Pain (ED), Endometriosis (ED) Additional Instructions: Please follow up with your results technician as scheduled. Return to the emergency department for new or worsening symptoms. Is patient prescribed a controlled substance at d/c from ED?: No Referrals: Rosa Lozano MD [Primary Care Provider] - 1-2 days
[2022-11-30] MEDS ORDERED: SODIUM CHLORIDE 0.9% 1,000 ML IV ONE (17:39)
[2022-11-30 18:08] LABS: Basophils % (A) 0 %; Eosinophils # (A) 0.2 k/uL (0-0.7); Eosinophils % (A) 2 %; HGB 14.7 gm/dL (11.4-16.0); Lymphocytes # (A) 1.9 k/uL (1.0-4.8); Lymphocytes % (A) 18 %; MCH 30.1 pg (25.0-35.0); MCV 86.1 fL (80.0-100.0); Mean Platelet Volume 8.1; Monocytes # (A) 0.4 k/uL (0-1.0); Monocytes % (A) 3 %; Neutrophils # (A) 8.1 k/uL (1.3-7.7); Neutrophils % (A) 76 %; Platelet Count 183 k/uL (150-450); RBC 4.88 m/uL (3.80-5.40); RDW 12.1 % (11.5-15.5); WBC 10.6 k/uL (3.8-10.6)
[2022-11-30 18:20] LABS: ALT 22 U/L (4-34); AST 27 U/L (14-36); African American GFR (CKD) >90 (>60 ml/min/1.73 sqM); Albumin 4.1 g/dL (3.5-5.0); Alkaline Phosphatase 64 U/L (38-126); Anion Gap 8 mmol/L; Blood Urea Nitrogen 11 mg/dL (7-17); Calcium 9.1 mg/dL (8.4-10.2); Carbon Dioxide 22 mmol/L (22-30); Chloride 108 mmol/L (98-107); Glucose 90 mg/dL (74-99); Lipase 58 U/L (23-300); Non-African American GFR(CKD) >90 (>60 ml/min/1.73 sqM); Sodium 138 mmol/L (137-145); Total Bilirubin 0.4 mg/dL (0.2-1.3); Total Protein 6.9 g/dL (6.3-8.2)
--- NOTE | 2022-11-30 19:02 | US ---
EXAMINATION TYPE: US pelvic complete DATE OF EXAM: 11/30/2022 COMPARISON: Prior ultrasound and CT November 03, 2022 CLINICAL INDICATION: Female, 37 years old with history of pelvic pain, hx endometriosis, cyst; Hx of endometriosis. Pt states flare up started 2 days ago. . 2 c-sections TECHNIQUE: . Transabdominal sonographic images of the pelvis were acquired. Date of LMP: Irregular periods EXAM MEASUREMENTS: Uterus: 9.2 x 7.2 x 5.1 cm Endometrial Stripe: 0.63 cm Right Ovary: 3.3 x 2.6 x 2.4 cm Left Ovary: 3.2 x 2.4 x 1.9 cm 1. Uterus: Anteverted Lobulated contour 2. Endometrium: wnl. IUD appears to be in correct position 3. Right Ovary: wnl 4. Left Ovary: wnl Spectral, color and waveform doppler imaging shows good arterial and venous flow within the ovaries ; 5. Bilateral Adnexa: wnl 6. Posterior cul-de-sac: wnl Anteverted uterus redemonstrated. Central metallic IUD again seen. No free fluid. Ovaries symmetric a nd normal in size. No suspicious adnexal mass. IMPRESSION: Unremarkable study.
[2022-11-30 20:00] LABS: Color,Urine Light Yellow
[2022-11-30 20:05] LABS: Appearance,Urine Clear (Clear); PH, Urine 5.5 (5.0-8.0); Protein,Urine Negative (Negative); Specific Gravity,Urine 1.025 (1.001-1.035)
[2022-11-30 20:06] LABS: Bilirubin,Urine Negative (Negative); Blood,Urine Large (Negative); Glucose,Urine (UA) Negative (Negative); Ketones,Urine Negative (Negative)
[2022-11-30 20:08] LABS: Leukocyte Esterase,Urine Negative (Negative)
[2022-11-30 20:10] LABS: Nitrite,Urine Negative (Negative); Urobilinogen,Urine <2.0 mg/dL (<2.0)
[2022-11-30] MEDS ORDERED: ACET/COD 300 MG/30 MG STARTER PACK 6 TAB BTL PO STA (20:21)
[2022-11-30 20:34] LABS: Mucus,Urine Rare /hpf; RBC,Urine 18 /hpf (0-5); Squamous Epithelial Cell,Urine <1 /hpf (0-4); WBC,Urine <1 /hpf (0-5)
[2022-11-30 20:41] VITALS: BP 125/88; PULSE 71; TEMP 98.7
== END 2022-11-30 20:40 | disposition home or self-care (01) ==
LOC: EC 17:05
DX: N80.9 Endometriosis, unspecified (principal); J44.9 Chronic obstructive pulmonary disease, unspecified; Z88.0 Allergy status to penicillin; Z88.8 Allergy status to other drugs, medicaments and biological substances; Z87.891 Personal history of nicotine dependence
CPT/HCPCS: 36415; 80053; 83690; 85025; 81001; 81025; 93975; 76856; 99284; 96374; 96375; 96376; 96361; J1885; J1170

== ENCOUNTER 2023-01-24 13:19 | Emergency (ER) | payer BC ==
[2023-01-24 13:39] VITALS: TEMP 98.6
[2023-01-24] MEDS ORDERED: SODIUM CHLORIDE 0.9% 1,000 ML IV STA (13:42)
[2023-01-24] MEDS ORDERED: HYDROmorphone 1 MG/ML 1 ML SYRINGE IVP STA ×2 (13:42→15:13)
[2023-01-24] MEDS ORDERED: ONDANSETRON 4 MG/2 ML VIAL IVP STA (13:42)
[2023-01-24] MEDS ORDERED: KETOROLAC 15 MG/ML 1 ML VIAL IVP STA (13:42)
[2023-01-24 14:34] LABS: Basophils % (A) 0 %; Eosinophils # (A) 0.2 k/uL (0-0.7); Eosinophils % (A) 3 %; HCT 44.4 % (34.0-46.0); HGB 15.2 gm/dL (11.4-16.0); Lymphocytes # (A) 1.4 k/uL (1.0-4.8); Lymphocytes % (A) 19 %; MCH 29.6 pg (25.0-35.0); MCHC 34.3 g/dL (31.0-37.0); MCV 86.4 fL (80.0-100.0); Monocytes # (A) 0.3 k/uL (0-1.0); Monocytes % (A) 4 %; Neutrophils # (A) 5.5 k/uL (1.3-7.7); Neutrophils % (A) 74 %; Platelet Count 196 k/uL (150-450); RBC 5.14 m/uL (3.80-5.40); RDW 12.6 % (11.5-15.5); WBC 7.5 k/uL (3.8-10.6)
[2023-01-24 14:47] LABS: ALT 27 U/L (4-34); AST 29 U/L (14-36); African American GFR (CKD) >90 (>60 ml/min/1.73 sqM); Albumin 4.1 g/dL (3.5-5.0); Alkaline Phosphatase 51 U/L (38-126); Amylase 47 U/L (30-110); Anion Gap 12 mmol/L; Blood Urea Nitrogen 13 mg/dL (7-17); Calcium 9.3 mg/dL (8.4-10.2); Carbon Dioxide 19 mmol/L (22-30); Chloride 106 mmol/L (98-107); Glucose 130 mg/dL (74-99); Lipase 50 U/L (23-300); Non-African American GFR(CKD) >90 (>60 ml/min/1.73 sqM); Sodium 137 mmol/L (137-145); Total Bilirubin 0.7 mg/dL (0.2-1.3); Total Protein 7.1 g/dL (6.3-8.2)
[2023-01-24] MEDS ORDERED: SODIUM CHLORIDE 0.9% 500 ML 500 ML IV STA (15:13)
[2023-01-24] MEDS ORDERED: PROCHLORPERAZINE INJ 10 MG/2 ML VIAL IVP STA (15:14)
--- NOTE | 2023-01-24 15:15 | ED ---
Recheck HPI - General Chief Complaint: Abdominal Pain Stated Complaint: Pelvic Pain Time Seen by Provider: 01/24/23 13:37 Source: patient, RN notes reviewed, old records reviewed Mode of arrival: ambulatory Limitations: no limitations - History of Present Illness Initial Comments: This is a 37-year-old female to the emergency department for evaluation, patient's pending for abdominal pain chronic pain today. Patient states she's had this similar pain before but this is a worsens been. She did significant distress due to pain here in the ER but states this again is her normal pain just worse MD Complaint: medication refill request, other (Severe uncontrolled abdominal pain) -: days(s) Returns Today for: persistent/worsening pain related to initial visit Symptoms Since Prior Visit: worsening pain Treatments Prior to Arrival: Given Pain Meds on - Related Data Home Medications Medication Instructions Recorded Confirmed Naproxen 500 mg PO BID PRN 08/18/20 09/17/20 Leuprolide Acetate [Lupron Depot] 3.75 mg SQ QMONTHLY 09/17/20 09/17/20 levonorgestreL [Mirena] 1 implant VAGINAL [id number] 09/17/20 09/17/20 methocarbamoL [Methocarbamol] 500 mg PO Q6H PRN 09/17/20 09/17/20 Previous Rx's Medication Instructions Recorded Albuterol Inhaler [Ventolin Hfa 1 puff INHALATION RT-QID PRN #8 gm 12/15/20 Inhaler] dexAMETHasone [Decadron] 6 mg PO DAILY 7 Days #7 tablet 12/15/20 HYDROcodone/APAP 7.5-325MG [[place] 1 tab PO Q6HR PRN 3 Days #12 tab 11/03/22 7.5-325] Ibuprofen [Motrin] 600 mg PO Q8HR PRN #30 tab 11/03/22 Acetaminophen-Codeine 300-30mg 1 tab PO Q6H PRN 3 Days #12 tablet 11/30/22 [Tylenol w/codeine #3] Allergies Allergy/AdvReac Type Severity Reaction Status Date / Time Penicillins AdvReac Severe Rapid Verified 01/24/23 13:25 Heart Rate albuterol AdvReac Rapid Verified 01/24/23 13:25 Heart Rate Review of Systems ROS Statement: Those systems with pertinent positive or pertinent negative responses have been documented in the HPI. ROS Other: All systems not noted in ROS Statement are negative. Past Medical History Past Medical History: COPD Additional Past Medical History / Comment(s): Murmur when young, endometriosis. History of Any Multi-Drug Resistant Organisms: None Reported Past Surgical History: Appendectomy, Section Additional Past Surgical History / Comment(s): x2 c- scetion, reconstructive nASAL SX, lap surgery for endometriosis Past Anesthesia/Blood Transfusion Reactions: No Reported Reaction Past Psychological History: No Psychological Hx Reported Smoking Status: Former smoker Past Alcohol Use History: Rare Past Drug Use History: None Reported - Past Family History Father History Unknown: Yes General Exam Limitations: no limitations General appearance: alert, in no apparent distress Head exam: Present: atraumatic, normocephalic, normal inspection Eye exam: Present: normal appearance, PERRL, EOMI. Absent: scleral icterus, co njunctival injection, periorbital swelling ENT exam: Present: normal exam, mucous membranes moist Neck exam: Present: normal inspection. Absent: tenderness, meningismus, lymphadenopathy Respiratory exam: Present: normal lung sounds bilaterally. Absent: respiratory distress, wheezes, rales, rhonchi, stridor Cardiovascular Exam: Present: regular rate, normal rhythm, normal heart sounds. Absent: systolic murmur, diastolic murmur, rubs, gallop, clicks GI/Abdominal exam: Present: soft, normal bowel sounds. Absent: distended, tenderness, guarding, rebound, rigid Extremities exam: Present: normal inspection, full ROM, normal capillary refill. Absent: tenderness, pedal edema, joint swelling, calf tenderness Back exam: Present: normal inspection Neurological exam: Present: alert, oriented X3, CN II-XII intact Psychiatric exam: Present: normal affect, normal mood Skin exam: Present: warm, dry, intact, normal color. Absent: rash Course Vital Signs 01/24/23 01/24/23 13:23 17:00 Temperature 98.6 F Pulse Rate 116 H 72 Respiratory 22 16 Rate Blood Pressure 128/76 116/64 O2 Sat by Pulse 97 98 Oximetry - Reevaluation(s) Reevaluation #1: Medical record is reviewed Reevaluation #2: Patient symptoms are improved Reevaluation #3: Patient informed of results and questions answered Reevaluation #4: Was pt. sent in by a medical professional or institution (Dr., PA, AUTOMATIC DRILL OPERATOR, urgent care, hospital, or fci...) When possible be specific @ -no Did you speak to anyone other than the patient for history (EMS, parent, family, police, friend...)? What history was obtained from this source @ -no Did you review nursing and triage notes (agree or disagree)? Why? @ -agree Are old charts reviewed (outside hosp., previous admission, EMS record, old EKG, old radiological studies, urgent care reports/EKG's, fci records)? Report findings @ -yes Differential Diagnosis (chest pain, altered mental status, abdominal pain women, abdominal pain men, vaginal bleeding, weakness, fever, dyspnea, syncope, headache, dizziness, GI bleed, back pain, seizure, CVA, palpatations, mental health, musculoskeletal)? @ -prior EKG interpreted by me (3pts min.). @ -no X-rays interpreted by me (1pt min.). @ -no CT interpreted by me (1pt min.). @ -no U/S interpreted by me (1pt. min.). @ -no What testing was considered but not performed or refused? (CT, X-rays, U/S, labs)? Why? @ -none What meds were considered but not given or refused? Why? @ -none Did you discuss the management of the patient with other professionals (professionals i.e. NELLA Monae, AUTOMATIC DRILL OPERATOR, lab, RT, psych nurse, social service technician, faculty research physician, teacher, compliance review officer, medical case manager)? Give summary @ -no Was smoking cessation discussed for >3mins.? @ -no Was critical care preformed (if so, how long)? @ -no Were there social determinants of health that impacted care today? How? (Homelessness, low income, unemployed, alcoholism, drug addiction, transportation, low edu. Level, literacy, decrease access to med. care, skilled nursing, rehab)? @ -none Was there de-escalation of care discussed even if they declined (Discuss DNR or withdrawal of care, Hospice)? DNR status @ -no What co-morbidities impacted this encounter? (DM, HTN, Smoking, COPD, CAD, Cancer, CVA, ARF, Chemo, Hep., AIDS, mental health diagnosis, sleep apnea, morbid obesity)? @ -none Was patient admitted / discharged? Hospital course, mention meds given and route, prescriptions, significant lab abnormalities, going to OR and other pertinent info. @ - 37 female to the emergency department for evaluation of dull pain no nerve facility for persistent abdominal pain. Bowel pain is well-controlled here in the ER. Patient states this is her normal abdominal pain and prefers discharged home with no further imaging or testing Discharged Undiagnosed new problem with uncertain prognosis? @ -no Drug Therapy requiring intensive monitoring for toxicity (Heparin, Nitro, Insulin, Cardizem)? @ -no Were any procedures done? @ -no Diagnosis/symptom? @ -Abdominal pain, chronic pain Acute, or Chronic, or Acute on Chronic? @ -Acute Uncomplicated (without systemic symptoms) or Complicated (systemic symptoms)? @ -Complicated Side effects of treatment? @ -no Exacerbation, Progression, or Severe Exacerbation? @ -exacerbation Poses a threat to life or bodily function? How? (Chest pain, [place], [place], pneumonia, PE, COPD, DKA, ARF, appy, cholecystitis, CVA, Diverticulitis, Homicidal, Suicidal, threat to staff... and all critical care pts) @ -no Reevaluation #5: Differential Abdominal Pain Women: Appendicitis, Cholecystitis, diverticulosis, ischemic bowel, pancreatitis, hepatitis, UTI, gastroenteritis, AAA, incarcerated hernia, bowel obstruction, constipation, inflammatory bowel, hepatitis, peptic ulcer disease, splenic infarction, perforated viscus, vulvitis, ovarian torsion, PID, kidney stone, placenta abruption, this is not meant to be an all-inclusive list Medical Decision Making - Medical Decision Making 37 female to the emergency department for evaluation of dull pain no nerve facility for persistent abdominal pain. Bowel pain is well-controlled here in the ER. Patient states this is her normal abdominal pain and prefers discharged home with no further imaging or testing - Lab Data Result diagrams: 01/24/23 14:12 01/24/23 14:12 Lab Results 01/24/23 01/24/23 01/24/23 Range/Units 14:12 14:12 14:12 WBC 7.5 (3.8-10.6) k/uL RBC 5.14 (3.80-5.40) m/uL Hgb 15.2 (11.4-16.0) gm/dL Hct 44.4 (34.0-46.0) % MCV 86.4 (80.0-100.0) fL MCH 29.6 (25.0-35.0) pg MCHC 34.3 (31.0-37.0) g/dL RDW 12.6 (11.5-15.5) % Plt Count 196 (150-450) k/uL MPV 8.0 Neutrophils % 74 % Lymphocytes % 19 % Monocytes % 4 % Eosinophils % 3 % Basophils % 0 % Neutrophils # 5.5 (1.3-7.7) k/uL Lymphocytes # 1.4 (1.0-4.8) k/uL Monocytes # 0.3 (0-1.0) k/uL Eosinophils # 0.2 (0-0.7) k/uL Basophils # 0.0 (0-0.2) k/uL Sodium 137 (137-145) mmol/L Potassium 4.0 (3.5-5.1) mmol/L Chloride 106 (98-107) mmol/L Carbon Dioxide 19 L (22-30) mmol/L Anion Gap 12 mmol/L BUN 13 (7-17) mg/dL Creatinine 0.63 (0.52-1.04) mg/dL Est GFR (CKD-EPI)AfAm >90 (>60 ml/min/1.73 sqM) Est GFR (CKD-EPI)NonAf >90 (>60 ml/min/1.73 sqM) Glucose 130 H (74-99) mg/dL Calcium 9.3 (8.4-10.2) mg/dL Total Bilirubin 0.7 (0.2-1.3) mg/dL AST 29 (14-36) U/L ALT 27 (4-34) U/L Alkaline Phosphatase 51 (38-126) U/L Total Protein 7.1 (6.3-8.2) g/dL Albumin 4.1 (3.5-5.0) g/dL Amylase 47 (30-110) U/L Lipase 50 (23-300) U/L Urine Color Yellow Urine Appearance Cloudy H (Clear) Urine pH 5.5 (5.0-8.0) Ur Specific [place] 1.022 (1.001-1.035) Urine Protein Negative (Negative) Urine Glucose (UA) Negative (Negative) Urine Ketones Negative (Negative) Urine Blood Large H (Negative) Urine Nitrite Negative (Negative) Urine Bilirubin Negative (Negative) Urine Urobilinogen <2.0 (<2.0) mg/dL Ur Leukocyte Esterase Large H (Negative) Urine RBC 3 (0-5) /hpf Urine WBC 21 H (0-5) /hpf Ur Squamous Epith Cells 13 H (0-4) /hpf Urine Mucus Many H (None) /hpf Disposition Clinical Impression: Abdominal pain Disposition: HOME SELF-CARE Condition: Good Instructions (If sedation given, give patient instructions): Abdominal Pain (ED) Is patient prescribed a controlled substance at d/c from ED?: No Referrals: Rosa Lozano MD [Primary Care Provider] - 1-2 days Time of Disposition: 16:10
[2023-01-24] MEDS ORDERED: ONDANSETRON 4 MG ODT STARTER PACK 2 TAB BTL PO STA (16:15)
[2023-01-24] MEDS ORDERED: traMADol 50 MG STARTER PACK 3 TAB BTL PO STA (16:15)
[2023-01-24 16:27] LABS: Appearance,Urine Cloudy (Clear); Bilirubin,Urine Negative (Negative); Blood,Urine Large (Negative); Color,Urine Yellow; Glucose,Urine (UA) Negative (Negative); Ketones,Urine Negative (Negative); Leukocyte Esterase,Urine Large (Negative); Mucus,Urine Many /hpf; Nitrite,Urine Negative (Negative); PH, Urine 5.5 (5.0-8.0); Protein,Urine Negative (Negative); RBC,Urine 3 /hpf (0-5); Specific Gravity,Urine 1.022 (1.001-1.035); Squamous Epithelial Cell,Urine 13 /hpf (0-4); Urobilinogen,Urine <2.0 mg/dL (<2.0); WBC,Urine 21 /hpf (0-5)
[2023-01-24 17:19] VITALS: BP 116/64; PULSE 72; RESP 16
== END 2023-01-24 17:00 | disposition home or self-care (01) ==
LOC: EC 13:19
DX: R10.2 Pelvic and perineal pain (principal); J44.9 Chronic obstructive pulmonary disease, unspecified; Z87.891 Personal history of nicotine dependence; Z88.0 Allergy status to penicillin; Z88.8 Allergy status to other drugs, medicaments and biological substances
CPT/HCPCS: 36415; 80053; 82150; 83690; 85025; 81001; 99284; 96374; 96375 ×3; 96376; 96361; J0780; J2405; J1170; J1885; S0119

== ENCOUNTER 2023-02-21 10:03 | Emergency (ER) | payer BC ==
[2023-02-21] MEDS ORDERED: KETOROLAC 15 MG/ML 1 ML VIAL IM STA (10:27)
[2023-02-21] MEDS ORDERED: HYDROmorphone 1 MG/ML 1 ML SYRINGE IM STA (10:27)
[2023-02-21] MEDS ORDERED: LIDOCAINE 4% PATCH TOPICAL ONE (10:27)
--- NOTE | 2023-02-21 10:34 | ED ---
Back Pain HPI - General Chief Complaint: Back Pain/Injury Stated Complaint: back pain-injury Time Seen by Provider: 02/21/23 10:13 Source: patient, RN notes reviewed Limitations: no limitations - History of Present Illness Initial Comments: This is a 37 year old female who presents to the emergency department for back pain. States that she was wrestling with her son last night, and felt a crack in her mid back. This is worse on the right side. The pain got substantially worse this morning. She went to her chiropractor, thinking she was out of alignment. He did x-rays and was concerned about a T5 fracture. She took ibuprofen this morning with no relief in symptoms. Denies any loss of bowel/bladder control or saddle anesthesia. She does note numbness going down the right arm. MD Complaint: back pain, back injury - Related Data Home Medications Medication Instructions Recorded Confirmed Naproxen 500 mg PO BID PRN 08/18/20 09/17/20 Leuprolide Acetate [Lupron Depot] 3.75 mg SQ QMONTHLY 09/17/20 09/17/20 levonorgestreL [Mirena] 1 implant VAGINAL [id number] 09/17/20 09/17/20 methocarbamoL [Methocarbamol] 500 mg PO Q6H PRN 09/17/20 09/17/20 Previous Rx's Medication Instructions Recorded Albuterol Inhaler [Ventolin Hfa 1 puff INHALATION RT-QID PRN #8 gm 12/15/20 Inhaler] dexAMETHasone [Decadron] 6 mg PO DAILY 7 Days #7 tablet 12/15/20 HYDROcodone/APAP 7.5-325MG [Seanor 1 tab PO Q6HR PRN 3 Days #12 tab 11/03/22 7.5-325] Ibuprofen [Motrin] 600 mg PO Q8HR PRN #30 tab 11/03/22 Acetaminophen-Codeine 300-30mg 1 tab PO Q6H PRN 3 Days #12 tablet 11/30/22 [Tylenol w/codeine #3] HYDROcodone/APAP 5-325MG [Seanor 1 tab PO Q6HR PRN 3 Days #12 tab 02/21/23 5-325] methocarbamoL [Robaxin-750] 1,500 mg PO TID PRN #30 tab 02/21/23 predniSONE 50 mg PO DAILY 5 Days #5 tab 02/21/23 Allergies Allergy/AdvReac Type Severity Reaction Status Date / Time Penicillins AdvReac Severe Rapid Verified 02/21/23 10:12 Heart Rate albuterol AdvReac Rapid Verified 02/21/23 10:12 Heart Rate Review of Systems ROS Statement: Those systems with pertinent positive or pertinent negative responses have been documented in the HPI. ROS Other: All systems not noted in ROS Statement are negative. Past Medical History Past Medical History: COPD Additional Past Medical History / Comment(s): Murmur when young, endometriosis. History of Any Multi-Drug Resistant Organisms: None Reported Past Surgical History: Appendectomy, Section Additional Past Surgical History / Comment(s): x2 c- scetion, reconstructive nASAL SX, lap surgery for endometriosis Past Anesthesia/Blood Transfusion Reactions: No Reported Reaction Past Psychological History: No Psychological Hx Reported Smoking Status: Former smoker Past Alcohol Use History: Rare Past Drug Use History: None Reported - Past Family History Father History Unknown: Yes General Exam Limitations: no limitations General appearance: alert, in distress Head exam: Present: atraumatic, normocephalic, normal inspection Respiratory exam: Present: normal lung sounds bilaterally. Absent: respiratory distress, wheezes, rales, rhonchi, stridor Cardiovascular Exam: Present: regular rate, normal rhythm, normal heart sounds. Absent: systolic murmur, diastolic murmur, rubs, gallop, clicks Back exam: Present: tenderness (Right mid back) Neurological exam: Present: alert, oriented X3, CN II-XII intact Psychiatric exam: Present: normal affect, normal mood Skin exam: Present: warm, dry, intact, normal color. Absent: rash Course Vital Signs 02/21/23 02/21/23 02/21/23 10:10 11:31 12:07 Temperature 98.4 F 97.9 F Pulse Rate 71 54 L 62 Respiratory 20 16 18 Rate Blood Pressure 123/79 134/83 130/80 O2 Sat by Pulse 99 99 99 Oximetry Medical Decision Making - Medical Decision Making This is a 37-year-old female who presents to the emergency department for back pain. Was pt. sent in by a medical professional or institution? @ -No Did you speak to anyone other than the patient for history? @ -No Did you review nursing and triage notes? @ -Yes, and I agree, it is accurate with regards to the patient's symptoms. Were old charts reviewed? @ -No Differential Diagnosis? @ -Differential Back Pain: Strain, zoster, cauda equina syndrome, epidural abscess, vertebral osteomyelitis, discitis, fracture, subluxation, disc herniation, DJD, spinal stenosis, dissection, AAA, pancreatitis, peptic ulcer disease, pyelonephritis, kidney stone, this is not meant to be an all-inclusive list. EKG interpreted by me (3pts min.)? @ -Not obtained X-rays interpreted by me (1pt min.)? @ -Not obtained CT interpreted by me (1pt min.)? @ -CT scan of the thoracic spine obtained. My interpretation identifies no acute fractures. U/S interpreted by me (1pt. min.)? @ -Not obtained What testing was considered but not performed? (CT, X-rays, U/S, labs)? Why? @ -None What meds were considered but not given? Why? @ -None Did you discuss the management of the patient with other professionals? @ -No Did you reconcile home meds? @ -No Was smoking cessation discussed for >3mins.? @ -No Was critical care preformed (if so, how long)? @ -No Were there social determinants of health that impacted care today? How? (Homelessness, low income, unemployed, alcoholism, drug addiction, transportation, low edu. Level, literacy, decrease access to med. care, half-way, rehab)? @ -No Was there de-escalation of care discussed even if they declined? (Discuss DNR or withdrawal of care, Hospice)? @ -No What co-morbidities impacted this encounter? (DM, HTN, Smoking, COPD, CAD, Cancer, CVA, Hep., AIDS, mental health diagnosis, sleep apnea, morbid obesity)? @ -None Was patient admitted / discharged? @ -Discharged. Given that she already had x-rays that were concerning for a fracture, we proceeded with a computed tomography scan of the thoracic spine. No fractures were identified, however it did demonstrate a right paracentral disc herniation at T7 through T8. This is where the patient was notably tender. Her symptoms were well controlled in the emergency department. Prescription for prednisone and Robaxin provided with dosing instructions reviewed. Advised ice and limiting activity. Information for orthopedic spine follow-up provided. She is advised to contact them for a follow-up appointment. Undiagnosed new problem with uncertain prognosis? @ -None Drug Therapy requiring intensive monitoring for toxicity (Heparin, Nitro, Insulin, Cardizem)? @ -None Were any procedures done? @ -None Diagnosis/symptom? @ -Thoracic disc herniation Acute, or Chronic, or Acute on Chronic? @ -Acute Uncomplicated (without systemic symptoms) or Complicated (systemic symptoms)? @ -Uncomplicated Side effects of treatment? @ -None Exacerbation, Progression, or Severe Exacerbation] @ -Not applicable Poses a threat to life or bodily function? @ -The pain will likely limit her ability to function. Return precautions reviewed in depth, the patient is instructed to return to the emergency department with any new, worsening, or concerning symptoms. Patient v erbalized understanding. This case was discussed in detail with the attending ED physician, Dr. Bartlett. Presentation, findings, and treatment plan discussed in detail as well. - Radiology Data Radiology results: report reviewed, image reviewed Disposition Clinical Impression: Thoracic disc herniation Disposition: HOME SELF-CARE Instructions (If sedation given, give patient instructions): Thoracic Disc Herniation (ED) Additional Instructions: Return to the emergency department with any new, worsening, or concerning symptoms. Take the prednisone daily for 5 days. Take the Seanor sparingly when your pain is the most severe and be aware that it may make you drowsy. Take the Robaxin as 1-2 tablets up to 3-4 times daily. Be aware that this may also make you drowsy. Try to get plenty of rest, apply ice, and limit the amount of bending and lifting you are doing. Contact orthopedics as listed below for a follow-up appointment and reevaluation. Follow up with your primary care provider in 1-2 days. Prescriptions: HYDROcodone/APAP 5-325MG [Seanor 5-325] 1 tab PO Q6HR PRN 3 Days #12 tab PRN Reason: Pain predniSONE 50 mg PO DAILY 5 Days #5 tab methocarbamoL [Robaxin-750] 1,500 mg PO TID PRN #30 tab PRN Reason: Pain Is patient prescribed a controlled substance at d/c from ED?: Yes When asked, does pt state using other controlled substances?: No If prescribed controlled substance>3 days was MAPS reviewed?: Prescribed <3 Days Referrals: Rosa Lozano MD [Primary Care Provider] - 1-2 days Vicky Schaeffer DO [Doctor of Osteopathic Medicine] - 1-2 days Time of Disposition: 11:41
--- NOTE | 2023-02-21 11:14 | CT ---
EXAMINATION TYPE: CT thoracic spine wo con DATE OF EXAM: 02/21/2023 COMPARISON: None HISTORY: 37-year-old female upper back pain after wrestling with son. Outside xrays show possible fx C7 T1 T5. TECHNIQUE: Contiguous axial scanning of the thoracic spine without IV contrast. Coronal and sagittal reconstructions performed. CT DLP: 684.6 mGycm Automated exposure control for dose reduction was used. FINDINGS: Vertebral body heights are preserved and alignment is maintained. Small corticated densities at the tips of the T3 and T4 spinous processes suggest sequela of old inju mary. There is a right paracentral disc protrusion noted at T7-T8. This does not contribute any significant spinal canal stenosis. No significant neural foraminal stenosis seen. No prevertebral or paravertebral soft tissue body. Normal variation azygous fissure in the right upper lung. IMPRESSION: 1. THORACIC SPINE WITHOUT ACUTE FRACTURE OR MALALIGNMENT. 2. RIGHT PARACENTRAL DISC HERNIATION AT T7-T8. BY CT, THIS DOES NOT CONTRIBUTE ANY SIGNIFICANT SPINAL CANAL STENOSIS.
[2023-02-21] MEDS ORDERED: ORPHENADRINE 30 MG/ML 2 ML VIAL IM STA (11:33)
[2023-02-21] MEDS ORDERED: DEXAMETHASONE SOD PHOSPHATE 10 MG/ML 1 ML VIAL IM STA (11:33)
[2023-02-21] MEDS ORDERED: HYDROmorphone 0.5 MG/0.5 ML SYRINGE IM STA (11:33)
[2023-02-21 12:15] VITALS: BP 130/80; PULSE 62; RESP 18; TEMP 97.9
== END 2023-02-21 12:35 | disposition home or self-care (01) ==
LOC: EC 10:03
DX: M51.24 Other intervertebral disc displacement, thoracic region (principal); J44.9 Chronic obstructive pulmonary disease, unspecified; Z87.891 Personal history of nicotine dependence; Z88.0 Allergy status to penicillin; Z88.8 Allergy status to other drugs, medicaments and biological substances
CPT/HCPCS: 72128; 99284; 96372 ×5; J1100; J2360; J1170 ×2; J1885

== ENCOUNTER 2023-06-15 07:52 | Observation (INO) | payer BC ==
--- NOTE | 2023-06-15 08:38 | ED ---
General Adult HPI - General Chief complaint: Abdominal Pain Stated complaint: Abdominal Pain Time Seen by Provider: 06/15/23 07:55 Source: patient, family Mode of arrival: wheelchair Limitations: no limitations - History of Present Illness Initial comments: Dictation was produced using [employer] dictation software. please excuse any grammatical, word or spelling errors. Chief Complaint: 37-year-old female with past medical history of severe endometriosis, hysterectomy presents to the ER for severe acute onset right- sided lower quadrant abdominal pain History of Present Illness: Patient 37-year-old female she was having a bowel movement. When all of a sudden she started to feel a sharp pain in her right lower quadrant. Patient has history of hysterectomy. She had her left ovary removed. She has her right ovary. Apparently she has significant history of endometriosis. Patient also has history of appendectomy. Denies any fever. She does feel nauseated. No diarrhea. P patient states that earlier this year she had hysterectomy complicated by iatrogenic ureteral injury requiring stent placement and ureteral manipulation. Patient reports that the pain is severe and radiates to her right lower back The ROS documented in this emergency department record has been reviewed and confirmed by me. Those systems with pertinent positive or negative responses have been documented in the HPI. All other systems are other negative and/or noncontributory. - Related Data Home Medications Medication Instructions Recorded Confirmed No Known Home Medications 06/15/23 06/15/23 Allergies Allergy/AdvReac Type Severity Reaction Status Date / Time albuterol Allergy Rapid Verified 06/15/23 10:47 Heart Rate, swelling Penicillins AdvReac Severe Rapid Verified 06/15/23 10:47 Heart Rate, vision changes and elavated bp Review of Systems ROS Statement: Those systems with pertinent positive or pertinent negative responses have been documented in the HPI. ROS Other: All systems not noted in ROS Statement are negative. Past Medical History Past Medical History: COPD Additional Past Medical History / Comment(s): Murmur when young, endometriosis, cyst on ovary. History of Any Multi-Drug Resistant Organisms: None Reported Past Surgical History: Appendectomy, Section, Hysterectomy Additional Past Surgical History / Comment(s): x2 c- scetion, reconstructive nASAL SX, lap surgery for endometriosis Past Anesthesia/Blood Transfusion Reactions: No Reported Reaction Past Psychological History: No Psychological Hx Reported Smoking Status: Former smoker Past Alcohol Use History: Rare Past Drug Use History: None Reported - Past Family History Father History Unknown: Yes General Exam - General Exam Comments Initial Comments: PHYSICAL EXAM: General Impression: Alert and oriented x3, n acute distress secondary to pain HEENT: Normocephalic atraumatic, extra-ocular movements intact, pupils equal and reactive to light bilaterally, mucous membranes moist. Cardiovascular: Heart regular rate and rhythm Chest: Able to complete full sentences, no retractions, no tachypnea Abdomen: abdomen soft, non-tender, non-distended, no organomegaly Musculoskeletal: Pulses present and equal in all extremities, no peripheral edema Motor: no focal deficits noted Neurological: CN II-XII grossly intact, no focal motor or sensory deficits noted Skin: Intact with no visualized rashes Psych: Normal affect and mood Limitations: no limitations Course Vital Signs 06/15/23 06/15/23 07:58 09:35 Temperature 97.8 F Pulse Rate 76 Respiratory 16 20 Rate Blood Pressure 110/78 115/77 O2 Sat by Pulse 99 98 Oximetry Medical Decision Making - Medical Decision Making Was pt. sent in by a medical professional or institution (, PA, ROLLING CHAIR PUSHER, urgent care, hospital, or shelter...) When possible be specific @ -No Did you speak to anyone other than the patient for history (EMS, parent, family, police, friend...)? What history was obtained from this source @ -No Did you review nursing and triage notes (agree or disagree)? Why? @ -I reviewed and agree with nursing and triage notes Were old charts reviewed (outside hosp., previous admission, EMS record, old EKG, old radiological studies, urgent care reports/EKG's, shelter records)? Report findings @ -No old charts were reviewed Differential Diagnosis (chest pain, altered mental status, abdominal pain women, abdominal pain men, vaginal bleeding, musculoskeletal, weakness, fever, dyspnea, syncope, headache, dizziness, GI bleed, back pain, seizure, CVA, palpatations, mental health)? @ -Differential Abdominal Pain Women: Appendicitis, Cholecystitis, diverticulosis, ischemic bowel, pancreatitis, hepatitis, UTI, gastroenteritis, AAA, incarcerated hernia, bowel obstruction, constipation, inflammatory bowel, hepatitis, peptic ulcer disease, splenic infarction, perforated viscus, vulvitis, ovarian torsion, PID, kidney stone, placenta abruption, this is not meant to be an all-inclusive list EKG interpreted by me (3pts min.). @ -None done X-rays interpreted by me (1pt min.). @ -None done CT interpreted by me (1pt min.). @ -CT of the abdomen pelvis shows right ovarian cyst along with possible ileus versus enteritis U/S interpreted by me (1pt. min.). @ -None done What testing was considered but not performed or refused? (CT, X-rays, U/S, labs)? Why? @ -None What meds were considered but not given or refused? Why? @ -None Did you discuss the management of the patient with other professionals (professionals i.e. Dr., PA, ROLLING CHAIR PUSHER, lab, RT, psych nurse, social professionals, swiss machinist, teacher, ground nuclear weapons assembly officer, rehabilitation case coordinator)? Give summary @ -Case discussed with performance test architect, Dr. Hensley for observation admission Was smoking cessation discussed for >3mins.? @ -No Was critical care preformed (if so, how long)? @ -No Were there social determinants of health that impacted care today? How? (Homelessness, low income, unemployed, alcoholism, drug addiction, transportation, low edu. Level, literacy, decrease access to med. care, retirement, rehab)? @ -No Was there de-escalation of care discussed even if they declined (Discuss DNR or withdrawal of care, Hospice)? DNR status @ -No What co-morbidities impacted this encounter? (DM, HTN, Smoking, COPD, CAD, Cancer, CVA, ARF, Chemo, Hep., AIDS, mental health diagnosis, sleep apnea, mo rbid obesity)? @ -None Was patient admitted / discharged? Hospital course, mention meds given and r oute, prescriptions, significant lab abnormalities, going to OR and other pertinent info. @ -37-year-old female presents emergency department with severe right lower quadrant abdominal pain. Patient significant distress when she first arrived. Vital signs upon arrival are within acceptable limits. Laboratory evaluation shows no leukocytosis. Rest of labs negative. CT abdomen pelvis shows ovarian cyst. Transvaginal ultrasound showed right ovarian cyst with adequate arterial and venous Doppler flow. Patient has left ovary removed. Patient still in significant pain despite analgesic administration. Patient will be admitted to gynecology for intractable pelvic pain. Undiagnosed new problem with uncertain prognosis? @ -No Drug Therapy requiring intensive monitoring for toxicity (Heparin, Nitro, Insulin, Cardizem)? @ -No Were any procedures done? @ -No Diagnosis/symptom? Acute, or Chronic, or Acute on Chronic? Uncomplicated (without systemic symptoms) or Complicated (systemic symptoms)? @ -Intractable pelvic pain Side effects of treatment? @ -No Exacerbation, Progression, or Severe Exacerbation? @ -No Poses a threat to life or bodily function? How? (Chest pain, [place], [place], pneumonia, PE, COPD, DKA, ARF, appy, cholecystitis, CVA, Diverticulitis, Homicidal, Suicidal, threat to staff... and all critical care pts) @ -yes - Lab Data Result diagrams: 06/15/23 08:37 06/15/23 08:37 Lab Results 06/15/23 06/15/23 Range/Units 08:37 08:37 WBC 6.1 (3.8-10.6) k/uL RBC 5.46 H (3.80-5.40) m/uL Hgb 12.8 (11.4-16.0) gm/dL Hct 40.3 (34.0-46.0) % MCV 73.9 L (80.0-100.0) fL MCH 23.4 L (25.0-35.0) pg MCHC 31.7 (31.0-37.0) g/dL RDW 15.0 (11.5-15.5) % Plt Count 276 (150-450) k/uL MPV 7.8 Neutrophils % 64 % Lymphocytes % 26 % Monocytes % 5 % Eosinophils % 2 % Basophils % 1 % Neutrophils # 3.9 (1.3-7.7) k/uL Lymphocytes # 1.6 (1.0-4.8) k/uL Monocytes # 0.3 (0-1.0) k/uL Eosinophils # 0.1 (0-0.7) k/uL Basophils # 0.0 (0-0.2) k/uL Microcytosis Slight Sodium 137 (137-145) mmol/L Potassium 4.5 (3.5-5.1) mmol/L Chloride 109 H (98-107) mmol/L Carbon Dioxide 25 (22-30) mmol/L Anion Gap 3 mmol/L BUN 12 (7-17) mg/dL Creatinine 0.75 (0.52-1.04) mg/dL Est GFR (CKD-EPI)AfAm >90 (>60 ml/min/1.73 sqM) Est GFR (CKD-EPI)NonAf >90 (>60 ml/min/1.73 sqM) Glucose 84 (74-99) mg/dL Calcium 9.1 (8.4-10.2) mg/dL Total Bilirubin 0.4 (0.2-1.3) mg/dL AST 27 (14-36) U/L ALT 22 (4-34) U/L Alkaline Phosphatase 65 (38-126) U/L Total Protein 7.0 (6.3-8.2) g/dL Albumin 4.2 (3.5-5.0) g/dL Lipase 45 (23-300) U/L Disposition Clinical Impression: Pelvic pain Disposition: ADMITTED IP TO THIS HOSP Condition: Fair Referrals: Rosa Lozano MD [Primary Care Provider] - 1-2 days Decision Time: 10:55
[2023-06-15] MEDS: SODIUM CHLORIDE 0.9% 1,000 ML IV STA (08:42)
[2023-06-15] MEDS: HYDROmorphone 1 MG/ML 1 ML SYRINGE IVP STA ×2 (08:42→10:02)
[2023-06-15] MEDS: ONDANSETRON 4 MG/2 ML VIAL IVP STA (08:55)
[2023-06-15 09:00] LABS: Basophils % (A) 1 %; Eosinophils # (A) 0.1 k/uL (0-0.7); Eosinophils % (A) 2 %; HCT 40.3 % (34.0-46.0); HGB 12.8 gm/dL (11.4-16.0); Lymphocytes # (A) 1.6 k/uL (1.0-4.8); Lymphocytes % (A) 26 %; MCH 23.4 pg (25.0-35.0); MCHC 31.7 g/dL (31.0-37.0); MCV 73.9 fL (80.0-100.0); Mean Platelet Volume 7.8; Microcytosis Slight; Monocytes # (A) 0.3 k/uL (0-1.0); Monocytes % (A) 5 %; Neutrophils # (A) 3.9 k/uL (1.3-7.7); Neutrophils % (A) 64 %; Platelet Count 276 k/uL (150-450); RBC 5.46 m/uL (3.80-5.40); WBC 6.1 k/uL (3.8-10.6)
--- NOTE | 2023-06-15 09:38 | CT ---
EXAMINATION TYPE: CT abdomen pelvis w con DATE OF EXAM: 06/15/2023 COMPARISON: 10/26/2022 HISTORY: 37-year-old female Abdominal pain, suspect torsion TECHNIQUE: Contiguous axial scanning of the abdomen and pelvis following administration of 100 ml Iso georgette-370 IV contrast. Delayed images through the kidneys and coronal/sagittal reconstructions perform ed. CT DLP: 929.9 mGycm Automated exposure control for dose reduction was used. FINDINGS: Heart normal size without pericardial effusion. Lung bases clear without pleural effusion. Small amount of focal fat along the anterior falciform ligament. Portal venous system is patent. No b iliary ductal dilatation. Gallbladder, adrenal glands, kidneys, spleen, pancreas within normal limits. Prominent fluid-filled small bowel loops throughout. No abnormal dilated small bowel or free air. Matt e liquid stool in the right side of the colon. Otherwise, no significant stool burden. Surgical mater ial right lower quadrant suggesting prior appendectomy. No mesenteric or retroperitoneal adenopathy seen. Bladder urine distended. Suspect a small high riding left ovary, axial image 5. There is a right adnexal/mid pelvic mass measuring 5.9 x 5.3 cm. Internal cyst measures 3.3 cm. Mild pelvic free fluid. No pelvic lymphadenopathy. Bilateral L5 pars defects with grade 2 anterolisthesis L5-S1 and severe degenerative disc. IMPRESSION: 1. STATUS POST HYSTERECTOMY. THERE IS A MID PELVIC/RIGHT ADNEXAL MASS MEASURING 5.9 CM WITH AN ROLL FORMING MACHINE SET UP MECHANIC AL CYST MEASURING 3.3 CM. A SEPARATE RIGHT OVARY IS DIFFICULT TO IDENTIFY. IN THE CORRECT CLINICAL SE TTING, RIGHT OVARIAN TORSION SHOULD BE EXCLUDED. CALLED TO DR. HAYWOOD IN THE ER AT 9:35 AM. 2. MILD CUL-DE-SAC FREE FLUID LIKELY REACTIVE. 3. PROMINENT FLUID-FILLED SMALL BOWEL LOOPS THROUGHOUT THE ABDOMEN AND SOME LIQUID STOOL IN THE RIGHT SIDE OF THE COLON. FINDINGS MAY REFLECT A GENERALIZED ILEUS VERSUS ENTERITIS. 4. INCIDENTAL: BILATERAL L5 PARS DEFECTS WITH GRADE 2 ANTEROLISTHESIS AT L5-S1 AND SEVERE DEGENERATIV E DISC DISEASE HERE.
[2023-06-15 09:50] LABS: ALT 22 U/L (4-34); AST 27 U/L (14-36); African American GFR (CKD) >90 (>60 ml/min/1.73 sqM); Albumin 4.2 g/dL (3.5-5.0); Alkaline Phosphatase 65 U/L (38-126); Anion Gap 3 mmol/L; Blood Urea Nitrogen 12 mg/dL (7-17); Calcium 9.1 mg/dL (8.4-10.2); Carbon Dioxide 25 mmol/L (22-30); Chloride 109 mmol/L (98-107); Glucose 84 mg/dL (74-99); Lipase 45 U/L (23-300); Non-African American GFR(CKD) >90 (>60 ml/min/1.73 sqM); Potassium 4.5 mmol/L (3.5-5.1); Sodium 137 mmol/L (137-145); Total Bilirubin 0.4 mg/dL (0.2-1.3)
--- NOTE | 2023-06-15 10:15 | US ---
EXAMINATION TYPE: US transvaginal plus Doppler DATE OF EXAM: 06/15/2023 COMPARISON: NONE CLINICAL INDICATION: Female, 37 years old with history of suspect torsion; partial hysterectomy only right ovary left. Pain HX of endometrioses TECHNIQUE: Transvaginal (TV. Color Doppler and spectral waveform analysis of the ovarian arteries an d veins FINDINGS: EXAM MEASUREMENTS: Uterus: Surgically absent Right Ovary: 5.8 x 4.7 x 5.7 cm Left Ovary: Surgically absent 1. Uterus: Surgically absent 2. Endometrium: Surgically absent 3. Right Ovary: Enlarged structure in the right adnexa measuring up to 5.8 cm contains a cystic port ion which measures 3.5 cm. The remainder is uniformly hypoechoic groundglass appearance with through- transmission. Possible peripheral ovarian parenchyma. Both arterial and venous waveforms are demonstr ated here. 4. Left Ovary: Surgically absent Spectral, color and waveform doppler imaging shows good arterial and venous flow within the right o vary. 5. Bilateral Adnexa: wnl 6. Posterior cul-de-sac: wnl IMPRESSION: 1. Enlarged structure in the right adnexa measuring 5.8 cm. There is a 3.5 cm cystic component and th e remainder shows a uniform hypoechoic groundglass appearance. Consider the possibility of an ovarian endometrioma. 2. Arterial and venous flow is demonstrated. Further clinical correlation will be needed for any susp ected ovarian torsion. 3. Unable to visualize the left ovary. The utilities equipment repairer indicates prior resection.
[2023-06-15] MEDS ORDERED: NALOXONE 0.4 MG/ML 1 ML VIAL IV PRN ×2 (10:48→17:54)
[2023-06-15] MEDS: SODIUM CHLORIDE 0.9% 1,000 ML IV SCH (11:25)
[2023-06-15] MEDS: HYDROmorphone 1 MG/ML 1 ML SYRINGE IVP PRN (11:26)
[2023-06-15] MEDS ORDERED: KETOROLAC 15 MG/ML 1 ML VIAL IVP SCH (12:45)
[2023-06-15] MEDS: KETOROLAC 15 MG/ML 1 ML VIAL IVP PRN (13:18)
[2023-06-15] MEDS: ACETAMINOPHEN IV (For NPO) 1,000 MG in EMPTY BAG 1 BAG IVPB STA (17:08)
[2023-06-15] MEDS: HYDROmorphone PCA 10 MG/50 ML BAG IV PRN (18:55)
--- NOTE | 2023-06-15 18:57 | P.HPOB ---
History of Present Illness H&P Date: 06/15/23 Chief Complaint: Acute right lower quadrant pain Patient is a 37-year-old 3 para 3-0-0-3 who presents to the emergency room this morning with acute onset of right lower quadrant pain. She had some moments of significantly increasing discomfort over the last day or 2 that she rode off to recovering from the surgery which will be described to follow. She has a history of significant endometriosis for which she ultimately was seen by an OUTGOING INSPECTOR in [facility] and ultimately underwent total abdominal hysterectomy with left salpingo-oophorectomy at [facility] in [place]. She reports that her parquetry layer told her that she had what amounted to a frozen pelvis. They were able to salvage the right ovary. The patient had had ureteral stenting in advance of the surgery in preparation for significant endometriotic concerns. Nevertheless, she did sustain a right ureteral injury prompting replacement of right ureteral stent for a period of time and extended drainage of the bladder. Since that time, she has continued to complain of vague urologic symptoms and has felt relatively well from the standpoint of gynecology. She had resumed intercourse without discomfort. She is extremely interested in keeping her right ovary. In follow-up for her ureteral injury, she did have recent ultrasonographic evaluation of the kidneys which demonstrated essentially normal findings with a left ureteral jet seen but not a right ureteral jet. That same scan did demonstrate a complex right ovarian cyst. In the emergency room today, she was found both by CT scan and transvaginal ultrasound to have a complex right ovarian cyst which I looked at personally with the radiologist and appears to be consistent with a hemorrhagic cyst. There is no evidence of torsion as there is normal arterial and venous blood flow. Obstetrical history: 3 para 3-0-0-3 with 1 vaginal delivery and 2 sections. She has previously in the past been seen by Dr. Engle but not for some time, perhaps since the of her last child 12 years ago. Gynecologic history: Unremarkable except as noted in history of present illness. Review of Systems Review of systems is confined to history of present illness. Past Medical History Past Medical History: COPD Additional Past Medical History / Comment(s): Murmur when young, endometriosis, cyst on ovary. History of Any Multi-Drug Resistant Organisms: None Reported Past Surgical History: Appendectomy, Section, Hysterectomy Additional Past Surgical History / Comment(s): x2 c- scetion, reconstructive nASAL SX, lap surgery for endometriosis Past Anesthesia/Blood Transfusion Reactions: No Reported Reaction Past Psychological History: No Psychological Hx Reported Smoking Status: Former smoker Past Alcohol Use History: Rare Past Drug Use History: None Reported - Past Family History Father History Unknown: Yes Medications and Allergies Home Medications Medication Instructions Recorded Confirmed Type No Known Home Medications 06/15/23 06/15/23 History Allergies Allergy/AdvReac Type Severity Reaction Status Date / Time albuterol Allergy Rapid Verified 06/15/23 10:47 Heart Rate, swelling Penicillins AdvReac Severe Rapid Verified 06/15/23 10:47 Heart Rate, vision changes and elavated bp Exam Vital Signs Temp Pulse Pulse Resp BP BP Pulse Ox 06/15/23 17:35 97.5 F L 68 16 118/62 97 06/15/23 17:02 98.4 F 72 22 126/82 100 06/15/23 15:08 72 20 119/79 100 06/15/23 11:20 71 20 119/74 100 06/15/23 09:35 20 115/77 98 06/15/23 07:58 97.8 F 76 16 110/78 99 Intake and Output 06/15/23 06/15/23 06/15/23 06:59 14:59 22:59 Other: Weight 77.111 kg General, this is a well-developed, well-nourished white female in moderate to significant discomfort and in some emotional distress. Her heart has a regular rhythm and rate without murmur. Her lungs are clear to auscultation bilaterally in all frances. Her abdomen is perhaps slightly distended, has normal active bowel sounds, soft, without any specific tenderness or evidence of masses. She does have some point tenderness in the right groin area near the ureterovesical junction and right ovarian area. There is no guarding or rebound. Her extremities are without any cyanosis, clubbing, or edema and are nontender to palpation. Bimanual pelvic examination is deferred as it is unlikely to add to the current picture. Results Result Diagrams: 06/15/23 08:37 06/15/23 08:37 Abnormal Lab Results - Last 24 Hours (Table) 06/15/23 06/15/23 Range/Units 08:37 08:37 RBC 5.46 H (3.80-5.40) m/uL MCV 73.9 L (80.0-100.0) fL MCH 23.4 L (25.0-35.0) pg Chloride 109 H (98-107) mmol/L Assessment and Plan (1) Other injury of ureter, subsequent encounter Current Visit: Yes Status: Acute Code(s): S37.19XD - OTHER INJURY OF URETER, SUBSEQUENT ENCOUNTER SNOMED Code(s): 05124517 (2) Complex cyst of right ovary Current Visit: Yes Status: Acute Code(s): N83.291 - OTHER OVARIAN CYST, RI GHT SIDE SNOMED Code(s): 23871668919848513 (3) Pelvic pain Current Visit: Yes Status: Acute Code(s): R10.2 - PELVIC AND PERINEAL PAIN SNOMED Code(s): 23925095 Plan: From a gynecologic perspective, her imaging studies could demonstrate an acute hemorrhagic ovarian cyst but her records from previous evaluation show similar findings and I suspect that this is perhaps incidental. I am quite concerned that she may have had exacerbation of her previous urologic injuries and have consulted urology as a result and discussed the case with them specifically at length. In the meantime, pain control is of utmost importance. I have discontinued intermittent IV dosing of Dilaudid in favor of a Dilaudid INSPECTORS AND REGULATORY OFFICERS. She additionally can have Toradol and/or IV Tylenol as needed. If this is a hemorrhagic cyst, the pain should resolve spontaneously over time. If it is urologic, we will leave it in the hands of urology to plot forward the next plan of action. Imaging may be required to ensure normal right renal function and ureteral patency. I additionally will place a Garcia catheter as the patient has reported being unable to void since this morning and we will send a urinalysis in sterile fashion for evaluation. She is otherwise hemodynamically from the standpoint of vital signs completely stable.
[2023-06-15] MEDS: LACTATED RINGERS 1,000 ML IV SCH (19:06)
[2023-06-15 20:15] LABS: Appearance,Urine Clear (Clear); Bilirubin,Urine Negative (Negative); Blood,Urine Trace (Negative); Color,Urine Colorless; Glucose,Urine (UA) Negative (Negative); Ketones,Urine Negative (Negative); Leukocyte Esterase,Urine Moderate (Negative); Nitrite,Urine Negative (Negative); Protein,Urine Negative (Negative); RBC,Urine 1 /hpf (0-5); Squamous Epithelial Cell,Urine 1 /hpf (0-4); Urobilinogen,Urine <2.0 mg/dL (<2.0); WBC,Urine 8 /hpf (0-5)
--- NOTE | 2023-06-15 22:20 | P.GSCN ---
History of Present Illness Consult date: 06/15/23 Reason for Consult: Pelvic Pain Requesting physician: Gael Hensley History of present illness: The patient is a 37-year-old white female who underwent a WENDY/LSO in March 2023 at [facility]. She sustained a right ureteral injury, requiring a right ureteral reimplant. Her urologic history is otherwise unremarkable. She denies any prior history of urolithiasis, and has been treated for occasional UTIs. This morning, she strained to have a bowel movement and experienced acute onset of right lower quadrant abdominal pain. She has experienced difficulty voiding throughout the day. She presented to the ER for evaluation. CT scan showed the kidneys to be normal, and specifically there was no evidence of hydronephrosis. The bladder was noted to be somewhat distended on CT scan, and the patient has experienced relief upon Garcia catheter insertion. She denies hematuria. Review of Systems - Genitourinary Genitourinary: Reports as per HPI Past Medical History Past Medical History: COPD Additional Past Medical History / Comment(s): Murmur when young, endometriosis, cyst on ovary. History of Any Multi-Drug Resistant Organisms: None Reported Past Surgical History: Appendectomy, Section, Hysterectomy Additional Past Surgical History / Comment(s): x2 c- scetion, reconstructive n SERINA SX, lap surgery for endometriosis Past Anesthesia/Blood Transfusion Reactions: No Reported Reaction Smoking Status: Former smoker - Past Family History Father History Unknown: Yes Medications and Allergies Home Medications Medication Instructions Recorded Confirmed Type No Known Home Medications 06/15/23 06/15/23 History Allergies Allergy/AdvReac Type Severity Reaction Status Date / Time albuterol Allergy Rapid Verified 06/15/23 10:47 Heart Rate, swelling Penicillins AdvReac Severe Rapid Verified 06/15/23 10:47 Heart Rate, vision changes and elavated bp Surgical - Exam Vital Signs Temp Pulse Resp BP Pulse Ox 97.8 F 76 16 110/78 99 06/15/23 07:58 06/15/23 07:58 06/15/23 07:58 06/15/23 07:58 06/15/23 07:58 - General well developed, well nourished, no distress - Respiratory normal respiratory effort - Abdomen Abdomen: soft, tender (Mild right lower quadrant tenderness), no guarding, no rigid, no rebound, no distended - Psychiatric oriented to time, oriented to person, oriented to place, speech is normal, memory intact Results - Labs 06/15/23 08:37 06/15/23 08:37 Abnormal Lab Results - Last 24 Hours (Table) 06/15/23 06/15/23 06/15/23 Range/Units 08:37 08:37 19:42 RBC 5.46 H (3.80-5.40) m/uL MCV 73.9 L (80.0-100.0) fL MCH 23.4 L (25.0-35.0) pg Chloride 109 H (98-107) mmol/L Urine Blood Trace H (Negative) Ur Leukocyte Esterase Moderate H (Negative) Urine WBC 8 H (0-5) /hpf Diabetes panel 06/15/23 Range/Units 08:37 Sodium 137 (137-145) mmol/L Potassium 4.5 (3.5-5.1) mmol/L Chloride 109 H (98-107) mmol/L Carbon Dioxide 25 (22-30) mmol/L BUN 12 (7-17) mg/dL Creatinine 0.75 (0.52-1.04) mg/dL Glucose 84 (74-99) mg/dL Calcium 9.1 (8.4-10.2) mg/dL AST 27 (14-36) U/L ALT 22 (4-34) U/L Alkaline Phosphatase 65 (38-126) U/L Total Protein 7.0 (6.3-8.2) g/dL Albumin 4.2 (3.5-5.0) g/dL Calcium panel 06/15/23 Range/Units 08:37 Calcium 9.1 (8.4-10.2) mg/dL Albumin 4.2 (3.5-5.0) g/dL Pituitary panel 06/15/23 Range/Units 08:37 Sodium 137 (137-145) mmol/L Potassium 4.5 (3.5-5.1) mmol/L Chloride 109 H (98-107) mmol/L Carbon Dioxide 25 (22-30) mmol/L BUN 12 (7-17) mg/dL Creatinine 0.75 (0.52-1.04) mg/dL Glucose 84 (74-99) mg/dL Calcium 9.1 (8.4-10.2) mg/dL Adrenal panel 06/15/23 Range/Units 08:37 Sodium 137 (137-145) mmol/L Potassium 4.5 (3.5-5.1) mmol/L Chloride 109 H (98-107) mmol/L Carbon Dioxide 25 (22-30) mmol/L BUN 12 (7-17) mg/dL Creatinine 0.75 (0.52-1.04) mg/dL Glucose 84 (74-99) mg/dL Calcium 9.1 (8.4-10.2) mg/dL Total Bilirubin 0.4 (0.2-1.3) mg/dL AST 27 (14-36) U/L ALT 22 (4-34) U/L Alkaline Phosphatase 65 (38-126) U/L Total Protein 7.0 (6.3-8.2) g/dL Albumin 4.2 (3.5-5.0) g/dL - Imaging CT scan - abdomen: report reviewed, image reviewed Assessment and Plan (1) Retention of urine, unspecified Current Visit: Yes Status: Acute Code(s): R33.9 - RETENTION OF URINE, UNSPECIFIED SNOMED Code(s): 783366290 Plan: The absence of hydronephrosis rules out a ureteral stricture as a cause of the patient's symptomatology. Her symptoms may be due to urinary retention, the etiology of which is unclear. Given that she is feeling better with Garcia catheter placement, I would suggest the catheter remain in place for several days. I explained this to her in detail, and the plan is for her to be discharged home with the Garcia catheter and follow-up with me next week. Tamsulosin will be prescribed, and she has been instructed to remove the catheter 12 hours prior to her follow-up appointment with me. Time with Patient: Greater than 30
[2023-06-16] MEDS: ONDANSETRON 4 MG/2 ML VIAL IVP PRN (08:27)
--- NOTE | 2023-06-16 08:55 | P.PN ---
Subjective Progress Note Date: 06/16/23 Principal diagnosis: Abdominal pain, urinary retention The patient was comfortable throughout the night. However, this morning she experienced severe right lower quadrant abdominal pain, associated with nausea and vomiting. She believes that the source of the pain is her ovary rather than her bladder. The Garcia catheter is draining clear urine. Objective - Vital Signs Vital signs: Vital Signs Temp 98.6 F 06/16/23 02:00 Pulse 66 06/16/23 02:00 Resp 18 06/16/23 02:00 BP 112/52 06/16/23 02:00 Pulse Ox 99 06/16/23 00:45 FiO2 Intake & Output 06/15/23 06/15/23 06/16/23 06:59 18:59 06:59 Intake Total 500 Output Total 850 Balance -350 Weight 77.111 kg 77.111 kg Intake: Oral 500 Output: Urine 850 Uretheral (Garcia) 500 Other: Voiding Method Indwelling Catheter - Constitutional General appearance: Present: average body habitus, mild distress - Psychiatric Psychiatric: Present: A&O x's 3 - Labs CBC & Chem 7: 06/15/23 08:37 06/15/23 08:37 Labs: Abnormal Lab Results - Last 24 Hours (Table) 06/15/23 06/15/23 06/15/23 Range/Units 08:37 08:37 19:42 RBC 5.46 H (3.80-5.40) m/uL MCV 73.9 L (80.0-100.0) fL MCH 23.4 L (25.0-35.0) pg Chloride 109 H (98-107) mmol/L Urine Blood Trace H (Negative) Ur Leukocyte Esterase Moderate H (Negative) Urine WBC 8 H (0-5) /hpf Assessment and Plan (1) Retention of urine, unspecified Current Visit: Yes Status: Acute Code(s): R33.9 - RETENTION OF URINE, UN SPECIFIED SNOMED Code(s): 199833090 Plan: The absence of hydronephrosis rules out a ureteral stricture as a cause of the patient's symptomatology. Her symptoms may be due to urinary retention, the etiology of which is unclear. However, with a Garcia catheter in place and the severe pain she is currently experiencing, I strongly believe that her pain is not urologic in nature.
[2023-06-16] MEDS: TAMSULOSIN 0.4 MG CAP.ER.24H PO SCH (09:45)
[2023-06-16] MEDS: ACETAMINOPHEN IV (For NPO) 1,000 MG in EMPTY BAG 1 BAG IVPB STA (10:19)
--- NOTE | 2023-06-16 10:26 | P.PN ---
Subjective Progress Note Date: 06/16/23 Principal diagnosis: Right lower quadrant pain, hemorrhagic ovarian cyst 37-year-old female that was admitted yesterday for intractable right lower quadrant pain. Patient has a known history of a total abdominal hysterectomy left salpingo-oophorectomy in March by a physician out of [place]. Patient has tried to reach out to this physician but she has since left the office and they have no updated information on her. Patient was admitted and had a Dilaudid OLDER ADULT SOCIAL WORK SPECIALIST ordered. A Garcia catheter was placed and initially she had complete resolution of her pain. This morning the OLDER ADULT SOCIAL WORK SPECIALIST was removed patient had increased pain associated with nausea and vomiting. Upon speaking with the patient patient has significant concerns about her ureter and bladder. Patient is not desirous of oophorectomy. Discussed with patient the complicated nature of her case given her complicated hysterectomy for endometriosis, she had stents placed prior to the hysterectomy given suspicion for dense endometriosis. Prior to proceeding with hysterectomy she had done a course of Lupron with complete resolution of her pain. After that 1 year was completed she states she was in the ER every month during her period for pain control. Patient had an ultrasound done recently with noted right ovarian cyst consistent with ultrasound done in the ER yesterday. Given complete resolution of her pain with placement of Garcia catheter, urology was consulted. Initially they felt that it could be urologic in nature, they are now stating they do not feel it is a urinary etiology of her pain, and have signed off this case. She did receive Toradol this morning with a noted decrease in her pain. While I was in the room she was eating her breakfast with no complaints of nausea. Objective - Vital Signs Vital signs: Vital Signs Temp 98.6 F 06/16/23 02:00 Pulse 66 06/16/23 02:00 Resp 18 06/16/23 02:00 BP 112/52 06/16/23 02:00 Pulse Ox 99 06/16/23 00:45 FiO2 Intake & Output 06/15/23 06/16/23 06/16/23 18:59 06:59 18:59 Intake Total 500 Output Total 850 Balance -350 Weight 77.111 kg 77.111 kg Intake: Oral 500 Output: Urine 850 Uretheral (Garcia) 500 Other: Voiding Method Indwelling Catheter - Constitutional General appearance: Present: average body habitus, cooperative, no acute distress - Respiratory Details: Breathing appears nonlabored - Gastrointestinal Gastrointestinal Comment(s): She has an ice pack on the right lower quadrant - Labs CBC & Chem 7: 06/15/23 08:37 06/15/23 08:37 Labs: Abnormal Lab Results - Last 24 Hours (Table) 06/15/23 Range/Units 19:42 Urine Blood Trace H (Negative) Ur Leukocyte Esterase Moderate H (Negative) Urine WBC 8 H (0-5) /hpf Assessment and Plan (1) Complex cyst of right ovary Current Visit: Yes Status: Acute Code(s): N83.291 - OTHER OVARIAN CYST, RIGHT SIDE SNOMED Code(s): 43621755426873370 (2) Other injury of ureter, subsequent encounter Current Visit: Yes Status: Acute Code(s): S37.19XD - OTHER INJURY OF URETER, SUBSEQUENT ENCOUNTER SNOMED Code(s): 63479801 (3) Pelvic pain Current Visit: Yes Status: Acute Code(s): R10.2 - PELVIC AND PERINEAL PAIN SNOMED Code(s): 37558763 Plan: I did sit and talk with the patient regarding her ultrasound findings yesterday in the ER and was able to look at the report that was done previously. Patient was urged to reach out to her surgeon, she did send a message and was told that she had left the office with no updated address. Patient is very frustrated understandably as she is in pain. Discussion regarding complicated nature of her surgery and possibility of injury should we return to the operating room. She has a strong desire not to return to the operating room or have removal of t he ovary. She has concerns regarding her urinary function as she did notice decreased pain with Garcia catheter placement. I discussed pain control over the weekend, and continue close observation. I do not want to return to the OR, as she is at significant risk for injury of ureter/bowel given the complicated nature of her prior surgery. Patient does state understanding of this and is not desirous of return to the OR. She adamantly wants to keep her right ovary
[2023-06-16] MEDS ORDERED: HYDROcodone/APAP 5-325MG 1 EACH TAB PO PRN (11:22)
[2023-06-16] MEDS: IBUPROFEN IV 800 MG in SODIUM CHLORIDE 0.9% 250 ML IV SCH (12:42)
[2023-06-16] MEDS: HYDROcodone/APAP 5-325MG 1 EACH TAB PO PRN (23:11)
[2023-06-17] MEDS: IBUPROFEN 600 MG TAB PO STA (09:17)
--- NOTE | 2023-06-17 09:26 | P.DS ---
Providers Date of admission: 06/15/23 10:48 Expected date of discharge: 06/17/23 Attending physician: Gael Hensley Consults: 06/15/23 18:39 Consult Physician Routine Consulting Provider: Juliocesar Moser Consult Reason/Comments: Discussed with Dr. Moser at length Do you want consulting provider notified?: Already Contacted Primary care physician: Rosa Lozano - Discharge Diagnosis(es) (1) Complex cyst of right ovary Current Visit: Yes Status: Acute (2) Other injury of ureter, subsequent encounter Current Visit: Yes Status: Acute (3) Pelvic pain Current Visit: Yes Status: Acute Hospital Course: 37-year-old female that presented to the hospital on 06/14 with severe right lower quadrant pain. Patient underwent ultrasound evaluation revealing a 5 cm hemor rhagic cyst. Patient's history is complicated by a hysterectomy completed in March by an [place]town physician. Significant endometriosis was encountered, ureteral injury was noted on the right with reimplantation by urology. Patient had stents removed beginning of June. Patient states she had an ultrasound Monday with observation of ovarian cyst, normal urologic function per patient. Patient then presented on 06/14 with acute onset of right lower quadrant pain. Patient had noted urinary retention Garcia was placed with resolution of the pain. Urology was consulted at that time. For full details on the consult please see the dictated consult from urology. Patient noted pain through the night controlled with the Dilaudid PRINT FINISHER. PRINT FINISHER was turned off in the morning, pain returned along with nausea and vomiting. Urology once again saw the patient and felt it was not urologic in nature. Given these findings the Garcia catheter was removed later in the day the PRINT FINISHER was discontinued and nonsteroidals, IV Ofirmev and Caldolor were begun. Patient states the pain was better with those oral [place] was begun in addition. [place] is controlling the pain and she is feeling much better this morning. Patient was able to have spontaneous void after Garcia catheter was removed. No retention symptoms are appreciated. Bladder scan was done through the night revealing no postvoid residual. Patient states she feels comfortable going home. 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 Patient tried to reach out to her insurance administrative assistant but she has since left the office she was seen at. Patient Condition at Discharge: Good Plan - Discharge Summary New Discharge Prescriptions: New Tamsulosin [Flomax] 0.4 mg PO DAILY #30 cap Discharge Medication List Tamsulosin [Flomax] 0.4 mg PO DAILY #30 cap 06/15/23 [Rx] Follow up Appointment(s)/Referral(s): Juliocesar Moser MD [STAFF PHYSICIAN] - 1 Week Rosa Lozano MD [Primary Care Provider] - 1-2 days Gael Hensley MD [STAFF PHYSICIAN] - 1 Week Activity/Diet/Wound Care/Special Instructions: [id number] ibuprofen in addition to a prescription for [place] for pain control. Discharge instructions reviewed with patient and her . She is urged to follow-up with urology that placed her stents and has been doing follow-up care status post hysterectomy. In addition patient will need gynecologic follow-up for surveillance of ovarian cyst. Discharge Disposition: HOME SELF-CARE
[2023-06-17 09:51] VITALS: BP 106/67; PULSE 89; RESP 16; TEMP 99
--- NOTE | 2023-06-17 11:44 | P.PN ---
Subjective Progress Note Date: 06/17/23 Principal diagnosis: Abdominal pain, urinary retention The patient feels much better today. Her pain is essentially resolved. Her Garcia catheter was removed yesterday. She is receiving tamsulosin, and states that she is voiding more easily than she typically does. Objective - Vital Signs Vital signs: Vital Signs Temp 99 F 06/17/23 09:00 Pulse 89 06/17/23 09:00 Resp 16 06/17/23 09:00 BP 106/67 06/17/23 09:00 Pulse Ox 99 06/17/23 09:00 FiO2 Intake & Output 06/16/23 06/17/23 06/17/23 18:59 06:59 18:59 Intake Total 800 480 Output Total 3600 1700 Balance -2800 -1220 Intake: Oral 800 480 Output: Urine 3600 1700 Uretheral (Garcia) 1800 Other: Voiding Method Toilet # Voids 1 - Constitutional General appearance: Present: average body habitus, cooperative, no acute di stress - Psychiatric Psychiatric: Present: A&O x's 3 - Labs CBC & Chem 7: 06/15/23 08:37 06/15/23 08:37 Assessment and Plan (1) Retention of urine, unspecified Status: Acute Code(s): R33.9 - RETENTION OF URINE, UNSPECIFIED SNOMED Code(s): 089304302 Plan: The patient's urinary retention has resolved. The absence of hydronephrosis rules out a ureteral stricture as a cause of the patient's symptomatology. She will take tamsulosin as an outpatient for several weeks, then discontinue it and notify me or her other urologist if she experiences increased difficulty voiding. She will follow-up with her other urologist this fall, and see me as needed in the future.
== END 2023-06-17 11:20 | disposition home or self-care (01) ==
LOC: EC 07:52 → 6NMEDSUR 10:48 → 4FBP 16:50
PROVIDERS: ADMIT Obstetrics & Gynecology; ATTEND Obstetrics & Gynecology
DX: N83.201 Unspecified ovarian cyst, right side (principal); S37.10XD Unspecified injury of ureter, subsequent encounter; Z90.710 Acquired absence of both cervix and uterus; J44.9 Chronic obstructive pulmonary disease, unspecified; Z90.49 Acquired absence of other specified parts of digestive tract; Z87.891 Personal history of nicotine dependence
CPT/HCPCS: 96366 ×3; 96367 ×3; 96361; 96365; 96375; 99285; 36415; 80053; 83690; 85025; 81001; 93976; 76830; 74177; G0378 ×4; J2405 ×2; J1170 ×2; J0131 ×2; J1885 ×2; J1741 ×2; Q9967

== ENCOUNTER 2023-07-27 10:37 | Emergency (ER) | payer BC ==
[2023-07-27 10:42] VITALS: TEMP 98.2
[2023-07-27] MEDS: SODIUM CHLORIDE 0.9% 2,000 ML IV ONE (11:39)
[2023-07-27] MEDS: HYDROmorphone 1 MG/ML 1 ML SYRINGE IVP STA (11:44)
[2023-07-27 11:48] LABS: Anisocytosis Slight; Basophils % (A) 0 %; Eosinophils # (A) 0.2 k/uL (0-0.7); Eosinophils % (A) 2 %; HGB 13.3 gm/dL (11.4-16.0); Lymphocytes # (A) 1.5 k/uL (1.0-4.8); Lymphocytes % (A) 14 %; MCH 23.5 pg (25.0-35.0); MCHC 30.8 g/dL (31.0-37.0); MCV 76.3 fL (80.0-100.0); Mean Platelet Volume 8.1; Microcytosis Slight; Monocytes # (A) 0.4 k/uL (0-1.0); Monocytes % (A) 4 %; Neutrophils # (A) 8.1 k/uL (1.3-7.7); Neutrophils % (A) 79 %; Platelet Count 190 k/uL (150-450); RBC 5.64 m/uL (3.80-5.40); RDW 17.2 % (11.5-15.5); WBC 10.3 k/uL (3.8-10.6)
[2023-07-27 12:44] LABS: ALT 52 U/L (4-34); AST 37 U/L (14-36); African American GFR (CKD) 70 (>60 ml/min/1.73 sqM); Albumin 4.3 g/dL (3.5-5.0); Alkaline Phosphatase 62 U/L (38-126); Amylase 55 U/L (30-110); Anion Gap 9 mmol/L; Blood Urea Nitrogen 17 mg/dL (7-17); Calcium 9.7 mg/dL (8.4-10.2); Carbon Dioxide 20 mmol/L (22-30); Chloride 113 mmol/L (98-107); Glucose 91 mg/dL (74-99); Lipase 75 U/L (23-300); Non-African American GFR(CKD) 61 (>60 ml/min/1.73 sqM); Potassium 4.6 mmol/L (3.5-5.1); Sodium 142 mmol/L (137-145); Total Bilirubin 0.6 mg/dL (0.2-1.3); Total Protein 7.1 g/dL (6.3-8.2)
[2023-07-27] MEDS: HYDROmorphone 0.5 MG/0.5 ML SYRINGE IVP STA ×2 (13:04→14:24)
--- NOTE | 2023-07-27 13:05 | US ---
EXAMINATION TYPE: US pelvic complete DATE OF EXAM: 07/27/2023 COMPARISON: US 2023 CLINICAL INDICATION: Female, 38 years old with history of pain; Right pelvic pain, history of partial hysterectomy TECHNIQUE: . Transabdominal sonographic images of the pelvis were acquired. EXAM MEASUREMENTS: Right Ovary: 5.0 x 5.8 x 5.7 cm 1. Uterus: surgically absent 2. Endometrium: surgically absent 3. Right Ovary: 4.3 x 4.6 x 4.4cm hypoechoic mass 4. Left Ovary: surgically absent Spectral, color and waveform doppler imaging shows good arterial and venous flow within the right o vary; there is no evidence for ovarian torsion. 5. Bilateral Adnexa: wnl 6. Posterior cul-de-sac: wnl IMPRESSION: Complex hypoechoic mass right ovary persists. Neoplasm is not excluded. Additional possibilities incl ude that of hemorrhagic cyst or endometrioma. Normal blood flow noted without sonographic evidence fo r torsion at this time.
[2023-07-27 13:10] VITALS: BP 115/78; PULSE 69; RESP 18
--- NOTE | 2023-07-27 14:15 | ED ---
General Adult HPI - General Chief complaint: Abdominal Pain Stated complaint: Abdominal Pain Time Seen by Provider: 07/27/23 10:58 Source: patient, family, RN notes reviewed Mode of arrival: wheelchair Limitations: no limitations - History of Present Illness Initial comments: 38-year-old female presents to the emergency department for evaluation of lower abdominal/pelvic pain. Patient states that this is mostly right-sided. She does admit to radiation of the pain to her low back. She does have a history of endometriosis and ovarian cyst. She has been dealing with similar pain on and off for many years. She does state that she had a hysterectomy and left oophorectomy earlier this year. She notes that she continues to have problems with the right ovary. Patient states that she is supposed to have another procedure to have this removed in the upcoming months. She denies recent fever, chills, urinary symptoms. - Related Data Previous Rx's Medication Instructions Recorded Tamsulosin [Flomax] 0.4 mg PO DAILY #30 cap 06/15/23 HYDROcodone/APAP 5-325MG [[place] 5] 1 each PO Q6HR PRN #12 tab 07/27/23 Allergies Allergy/AdvReac Type Severity Reaction Status Date / Time albuterol Allergy Rapid Verified 07/27/23 10:42 Heart Rate, swelling Penicillins AdvReac Severe Rapid Verified 07/27/23 10:42 Heart Rate, vision changes and elavated bp Review of Systems ROS Statement: Those systems with pertinent positive or pertinent negative responses have been documented in the HPI. ROS Other: All systems not noted in ROS Statement are negative. Past Medical History Past Medical History: COPD Additional Past Medical History / Comment(s): Murmur when young, endometriosis, cyst on ovary. History of Any Multi-Drug Resistant Organisms: None Reported Past Surgical History: Appendectomy, Section, Hysterectomy Additional Past Surgical History / Comment(s): x2 c- scetion, reconstructive nA DIETER SX, lap surgery for endometriosis Past Anesthesia/Blood Transfusion Reactions: No Reported Reaction Past Psychological History: No Psychological Hx Reported Smoking Status: Former smoker Past Alcohol Use History: Occasional Past Drug Use History: None Reported - Past Family History Father History Unknown: Yes General Exam Limitations: no limitations General appearance: alert, in distress (d/t pain) Head exam: Present: atraumatic, normocephalic, normal inspection Eye exam: Present: normal appearance, PERRL, EOMI. Absent: scleral icterus, conjunctival injection, periorbital swelling ENT exam: Present: normal exam, mucous membranes moist Respiratory exam: Present: normal lung sounds bilaterally. Absent: respiratory distress, wheezes, rales, rhonchi, stridor Cardiovascular Exam: Present: regular rate, normal rhythm, normal heart sounds. Absent: systolic murmur, diastolic murmur, rubs, gallop, clicks GI/Abdominal exam: Present: soft, tenderness, normal bowel sounds. Absent: distended, guarding, rebound, rigid Extremities exam: Present: normal inspection, full ROM, normal capillary refill. Absent: tenderness, pedal edema, joint swelling, calf tenderness Back exam: Present: normal inspection Neurological exam: Present: alert, oriented X3 Psychiatric exam: Present: normal affect, normal mood Skin exam: Present: warm, dry, intact, normal color. Absent: rash Course Vital Signs 07/27/23 07/27/23 10:40 13:08 Temperature 98.2 F Pulse Rate 113 H 69 Respiratory 26 H 18 Rate Blood Pressure 131/95 115/78 O2 Sat by Pulse 98 99 Oximetry Medical Decision Making - Medical Decision Making Was pt. sent in by a medical professional or institution (, PA, CONDUIT HELPER, urgent care, hospital, or fdc...) When possible be specific @ -No Did you speak to anyone other than the patient for history (EMS, parent, family, police, friend...)? What history was obtained from this source @ -No Did you review nursing and triage notes (agree or disagree)? Why? @ -I reviewed and agree with nursing and triage notes Were old charts reviewed (outside hosp., previous admission, EMS record, old EKG, old radiological studies, urgent care reports/EKG's, fdc records)? Report findings @ -No old charts were reviewed Differential Diagnosis (chest pain, altered mental status, abdominal pain women, abdominal pain men, vaginal bleeding, weakness, fever, dyspnea, syncope, headache, dizziness, GI bleed, back pain, seizure, CVA, palpatations, mental health, musculoskeletal)? @ -Differential Abdominal Pain Women: Appendicitis, Cholecystitis, diverticulosis, ischemic bowel, pancreatitis, hepatitis, UTI, gastroenteritis, AAA, incarcerated hernia, bowel obstruction, constipation, inflammatory bowel, hepatitis, peptic ulcer disease, splenic infarction, perforated viscus, vulvitis, ovarian torsion, PID, kidney stone, placenta abruption, this is not meant to be an all-inclusive list EKG interpreted by me (3pts min.). @ -EKG at 1107 shows sinus rhythm with sinus anemia rate 80, HI 131, QRS 81, QTQTc [id number] X-rays interpreted by me (1pt min.). @ -None done CT interpreted by me (1pt min.). @ -None done U/S interpreted by me (1pt. min.). @ -Pelvic ultrasound obtained which shows an absent uterus, right ovarian possible hemorrhagic cyst versus endometrioma What testing was considered but not performed or refused? (CT, X-rays, U/S, labs)? Why? @ -None What meds were considered but not given or refused? Why? @ -None Did you discuss the management of the patient with other professionals (professionals i.e. , PA, CONDUIT HELPER, lab, RT, psych nurse, family welfare social work professor, sewing machine tester, teacher, tax compliance officer, geriatric case manager)? Give summary @ -No Was smoking cessation discussed for >3mins.? @ -No Was critical care preformed (if so, how long)? @ -No Were there social determinants of health that impacted care today? How? (Homelessness, low income, unemployed, alcoholism, drug addiction, transportation, low edu. Level, literacy, decrease access to med. care, half-way, rehab)? @ -No Was there de-escalation of care discussed even if they declined (Discuss DNR or withdrawal of care, Hospice)? DNR status @ -No What co-morbidities impacted this encounter? (DM, HTN, Smoking, COPD, CAD, Cancer, CVA, ARF, Chemo, Hep., AIDS, mental health diagnosis, sleep apnea, morbid obesity)? @ -None Was patient admitted / discharged? Hospital course, mention meds given and route, prescriptions, significant lab abnormalities, going to OR and other pertinent info. @ -Discharge. Patient presented to the emergency department for evaluation of lower abdominal/pelvic pain starting today. She does have a history of endometriosis and ovarian cyst that she has experienced similar pain in the past. Laboratory studies were obtainedRevealing no significant leukocytosis or anemia; creatinine 1.13, patient was hydrated with normal saline; UA shows no evidence of infectious process. An ultrasound of the pelvis was obtained which shows a hypoechoic area of the right ovary possibly representing a hemorrhagic cyst versus an endometrioma. Patient was provided pain medication while in the emergency department. Patient reviewed which were comfortable after this. She will be discharged home with follow-up to her manager home for her procedure as scheduled. Patient is understanding agreeable with this plan. Patient stable at time of discharge. Case discussed with Dr. Monterroso. Undiagnosed new problem with uncertain prognosis? @ -No Drug Therapy requiring intensive monitoring for toxicity (Heparin, Nitro, Insulin, Cardizem)? @ -No Were any procedures done? @ -No Diagnosis/symptom? @ -Endometriosis, ovarian cyst Acute, or Chronic, or Acute on Chronic? @ -Acute Uncomplicated (without systemic symptoms) or Complicated (systemic symptoms)? @ -Uncomplicated Side effects of treatment? @ -No Exacerbation, Progression, or Severe Exacerbation? @ -No Poses a threat to life or bodily function? How? (Chest pain, [place], [place], pneumonia, PE, COPD, DKA, ARF, appy, cholecystitis, CVA, Diverticulitis, Homicidal, Suicidal, threat to staff... and all critical care pts) @ -No - Lab Data Result diagrams: 07/27/23 11:34 07/27/23 11:34 Lab Results 07/27/23 07/27/23 07/27/23 Range/Units 11:34 11:34 11:34 WBC 10.3 (3.8-10.6) k/uL RBC 5.64 H (3.80-5.40) m/uL Hgb 13.3 (11.4-16.0) gm/dL Hct 43.0 (34.0-46.0) % MCV 76.3 L (80.0-100.0) fL MCH 23.5 L (25.0-35.0) pg MCHC 30.8 L (31.0-37.0) g/dL RDW 17.2 H (11.5-15.5) % Plt Count 190 (150-450) k/uL MPV 8.1 Neutrophils % 79 % Lymphocytes % 14 % Monocytes % 4 % Eosinophils % 2 % Basophils % 0 % Neutrophils # 8.1 H (1.3-7.7) k/uL Lymphocytes # 1.5 (1.0-4.8) k/uL Monocytes # 0.4 (0-1.0) k/uL Eosinophils # 0.2 (0-0.7) k/uL Basophils # 0.0 (0-0.2) k/uL Anisocytosis Slight Microcytosis Slight Sodium 142 (137-145) mmol/L Potassium 4.6 (3.5-5.1) mmol/L Chloride 113 H (98-107) mmol/L Carbon Dioxide 20 L (22-30) mmol/L Anion Gap 9 mmol/L BUN 17 (7-17) mg/dL Creatinine 1.13 H (0.52-1.04) mg/dL Est GFR (CKD-EPI)AfAm 70 (>60 ml/min/1.73 sqM) Est GFR (CKD-EPI)NonAf 61 (>60 ml/min/1.73 sqM) Glucose 91 (74-99) mg/dL Plasma Lactic Acid Manny 1.3 (0.7-2.0) mmol/L Calcium 9.7 (8.4-10.2) mg/dL Total Bilirubin 0.6 (0.2-1.3) mg/dL AST 37 H (14-36) U/L ALT 52 H (4-34) U/L Alkaline Phosphatase 62 (38-126) U/L Total Protein 7.1 (6.3-8.2) g/dL Albumin 4.3 (3.5-5.0) g/dL Amylase 55 (30-110) U/L Lipase 75 (23-300) U/L Urine Color Urine Appearance (Clear) Urine pH (5.0-8.0) Ur Specific [place] (1.001-1.035) Urine Protein (Negative) Urine Glucose (UA) (Negative) Urine Ketones (Negative) Urine Blood (Negative) Urine Nitrite (Negative) Urine Bilirubin (Negative) Urine Urobilinogen (<2.0) mg/dL Ur Leukocyte Esterase (Negative) 07/27/23 Range/Units 14:06 WBC (3.8-10.6) k/uL RBC (3.80-5.40) m/uL Hgb (11.4-16.0) gm/dL Hct (34.0-46.0) % MCV (80.0-100.0) fL MCH (25.0-35.0) pg MCHC (31.0-37.0) g/dL RDW (11.5-15.5) % Plt Count (150-450) k/uL MPV Neutrophils % % Lymphocytes % % Monocytes % % Eosinophils % % Basophils % % Neutrophils # (1.3-7.7) k/uL Lymphocytes # (1.0-4.8) k/uL Monocytes # (0-1.0) k/uL Eosinophils # (0-0.7) k/uL Basophils # (0-0.2) k/uL Anisocytosis Microcytosis Sodium (137-145) mmol/L Potassium (3.5-5.1) mmol/L Chloride (98-107) mmol/L Carbon Dioxide (22-30) mmol/L Anion Gap mmol/L BUN (7-17) mg/dL Creatinine (0.52-1.04) mg/dL Est GFR (CKD-EPI)AfAm (>60 ml/min/1.73 sqM) Est GFR (CKD-EPI)NonAf (>60 ml/min/1.73 sqM) Glucose (74-99) mg/dL Plasma Lactic Acid Manny (0.7-2.0) mmol/L Calcium (8.4-10.2) mg/dL Total Bilirubin (0.2-1.3) mg/dL AST (14-36) U/L ALT (4-34) U/L Alkaline Phosphatase (38-126) U/L Total Protein (6.3-8.2) g/dL Albumin (3.5-5.0) g/dL Amylase (30-110) U/L Lipase (23-300) U/L Urine Color Colorless Urine Appearance Clear (Clear) Urine pH 5.0 (5.0-8.0) Ur Specific [place] 1.009 (1.001-1.035) Urine Protein Negative (Negative) Urine Glucose (UA) Negative (Negative) Urine Ketones Negative (Negative) Urine Blood Negative (Negative) Urine Nitrite Negative (Negative) Urine Bilirubin Negative (Negative) Urine Urobilinogen <2.0 (<2.0) mg/dL Ur Leukocyte Esterase Negative (Negative) Disposition Clinical Impression: Abdominal pain, Endometriosis Disposition: HOME SELF-CARE Condition: Stable Instructions (If sedation given, give patient instructions): Endometriosis (ED) Additional Instructions: Please follow up with your manager home. Return to the emergency department for new or worsening symptoms. Prescriptions: HYDROcodone/APAP 5-325MG [[place] 5] 1 each PO Q6HR PRN #12 tab PRN Reason: Pain Is patient prescribed a controlled substance at d/c from ED?: Yes When asked, does pt state using other controlled substances?: No If prescribed controlled substance>3 days was MAPS reviewed?: Prescribed <3 Days Referrals: Rosa Lozano MD [Primary Care Provider] - 1-2 days
[2023-07-27 14:22] LABS: Appearance,Urine Clear (Clear); Bilirubin,Urine Negative (Negative); Blood,Urine Negative (Negative); Color,Urine Colorless; Glucose,Urine (UA) Negative (Negative); Ketones,Urine Negative (Negative); Leukocyte Esterase,Urine Negative (Negative); Nitrite,Urine Negative (Negative); Protein,Urine Negative (Negative); Specific Gravity,Urine 1.009 (1.001-1.035); Urobilinogen,Urine <2.0 mg/dL (<2.0)
== END 2023-07-27 14:52 | disposition home or self-care (01) ==
LOC: EC 10:37
DX: N80.9 Endometriosis, unspecified (principal); Z88.0 Allergy status to penicillin; Z88.8 Allergy status to other drugs, medicaments and biological substances; Z87.891 Personal history of nicotine dependence
CPT/HCPCS: 36415; 93005; 80053; 82150; 83605; 83690; 85025; 81003; 93976; 76856; 99284; 96374; 96376 ×2; 96361 ×2; J1170 ×2

== ENCOUNTER 2023-09-04 13:03 | Emergency (ER) | payer BC ==
[2023-09-04 13:27] VITALS: RESP 18; TEMP 98.6
--- NOTE | 2023-09-04 13:29 | ED ---
Abdominal Pain HPI - General Source: patient, RN notes reviewed Mode of arrival: wheelchair Limitations: no limitations <Carmela Hidalgo - Last Filed: 09/04/23 13:42> - General Source: patient, RN notes reviewed, old records reviewed <Alvin Monterroso - Last Filed: 09/04/23 16:40> - General Chief Complaint: Abdominal Pain Stated Complaint: Back/Abd pain Time Seen by Provider: 09/04/23 13:27 - History of Present Illness Initial Comments: Quick Note: This is a 38 year old female who presents to the emergency department for right sided pelvic pain beginning yesterday. Pain radiates into the back. She has mild vaginal spotting. Reports a hx of endometriosis and states that this feels like a flare up. Also reports concern of an ovarian cyst rupturing. (Carmela Hidalgo) Patient is a 38-year-old female who was originally seen as a quick note. Presents emergency department complaining of abdominal pain. Has a known histor y of abdominal pain secondary to endometriosis as well as a cyst on her right ovary. Pain is intermittent. Is due to see a specialist in 2 days however she is still having her typical pain. Presents for further evaluation. Denies any obvious bleeding other than her typical vaginal bleeding as she is currently on her cycle. Denies any dysuria or hematuria. Denies any chest pain or shortness of breath. Denies any significant nausea or vomiting. Patient originally seen as a quick note. I evaluated the patient when she was placed in the hallway. Workup started. (Alvin Monterroso) - Related Data Previous Rx's Medication Instructions Recorded Tamsulosin [Flomax] 0.4 mg PO DAILY #30 cap 06/15/23 HYDROcodone/APAP 5-325MG [[place] 5] 1 each PO Q6HR PRN #12 tab 07/27/23 HYDROcodone/APAP 5-325MG [[place] 1 tab PO Q6HR PRN 3 Days #12 tab 09/04/23 5-325] Allergies Allergy/AdvReac Type Severity Reaction Status Date / Time albuterol Allergy Rapid Verified 09/04/23 13:27 Heart Rate, swelling Penicillins AdvReac Severe Rapid Verified 09/04/23 13:27 Heart Rate, vision changes and elavated bp Review of Systems ROS Other: All systems not noted in ROS Statement are negative. <Carmela Hidalgo - Last Filed: 09/04/23 13:42> ROS Other: All systems not noted in ROS Statement are negative. <Alvin Monterroso - Last Filed: 09/04/23 16:40> ROS Statement: Those systems with pertinent positive or pertinent negative responses have been documented in the HPI. Review of Systems: CONST: Denies fever EYES: Denies blurry vision ENT: Denies nasal congestion C/V: Denies Chest pain RESP: Denies shortness of breath GI: Endorses abdominal pain : Denies dysuria SKIN: Denies rash. MSK: Denies joint pain. NEURO: Denies headache (Alvin Monterroso) Past Medical History Past Medical History: COPD Additional Past Medical History / Comment(s): Murmur when young, endometriosis, cyst on ovary. History of Any Multi-Drug Resistant Organisms: None Reported Past Surgical History: Appendectomy, Section, Hysterectomy Additional Past Surgical History / Comment(s): x2 c- scetion, reconstructive nASAL SX, lap surgery for endometriosis Past Anesthesia/Blood Transfusion Reactions: No Reported Reaction Past Psychological History: No Psychological Hx Reported Smoking Status: Former smoker Past Alcohol Use History: Occasional Past Drug Use History: None Reported - Past Family History Father History Unknown: Yes <Carmela Hidalgo - Last Filed: 09/04/23 13:42> General Exam <Carmela Hidalgo - Last Filed: 09/04/23 13:42> <Alvin Monterroso - Last Filed: 09/04/23 16:40> - General Exam Comments Initial Comments: Visual Physical Exam Vital signs reviewed General: Well-appearing, nontoxic, no acute distress. Head: Normocephalic, atraumatic Eyes: PERRLA, EOMI ENT: Airway patent Chest: Nonlabored breathing Skin: No visual rash, normal skin tone Neuro: Alert and oriented 3 Musculoskeletal: No gross abnormalities (Carmela Hidalgo) General: Appears in moderate distress secondary to abdominal pain HEAD: Normal with no signs of head trauma. EYES: PERRLA, EOMI, conjunctiva normal, no discharge. ENT: Hearing grossly intact, normal oropharynx. RESPIRATORY: Clear breath sounds bilaterally. No wheezes, rales, or rhonchi. C/V: Regular rate and rhythm. S1 and S2 auscultated, no edema, peripheral pulses 2+ and intact throughout ABD: Abdomen is soft, nondistended. Tender to palpation in the right abdomen. No guarding. No rebound tenderness. No peritoneal signs. EXT: Normal range of motion, no obvious deformity SKIN: No rashes or lesions observed on exposed skin. NEURO: Alert and oriented x 4. (Alvin Monterroso) Course Vital Signs 09/04/23 09/04/23 09/04/23 13:24 14:37 16:06 Temperature 98.6 F Pulse Rate 76 66 76 Respiratory 18 18 18 Rate Blood Pressure 118/81 122/86 123/84 O2 Sat by Pulse 100 99 97 Oximetry Medical Decision Making <Carmela Hidalgo - Last Filed: 09/04/23 13:42> - Lab Data Result diagrams: 09/04/23 13:48 09/04/23 13:48 <Alvin Monterroso - Last Filed: 09/04/23 16:40> - Medical Decision Making I performed the QuickNote portion of this chart. Signed Carmela Hidalgo PA-C. (Carmela Hidalgo) Was pt. sent in by a medical professional or institution (NELLA Monae, EPILEPSY PHYSICIAN, urgent care, hospital, or correction...) When possible be specific @ -No Did you speak to anyone other than the patient for history (EMS, parent, family, police, friend...)? What history was obtained from this source @ -No Did you review nursing and triage notes (agree or disagree)? Why? @ -I reviewed and agree with nursing and triage notes Were old charts reviewed (outside hosp., previous admission, EMS record, old EKG, old radiological studies, urgent care reports/EKG's, correction records)? Report findings @ -Old charts reviewed including old ultrasound findings which showed the cyst with previous similar presentations. Differential Diagnosis (chest pain, altered mental status, abdominal pain women, abdominal pain men, vaginal bleeding, weakness, fever, dyspnea, syncope, headache, dizziness, GI bleed, back pain, seizure, CVA, palpatations, mental health, musculoskeletal)? @ -Differential Abdominal Pain Women: Appendicitis, Cholecystitis, diverticulosis, ischemic bowel, pancreatitis, hepatitis, UTI, gastroenteritis, AAA, incarcerated hernia, bowel obstruction, constipation, inflammatory bowel, hepatitis, peptic ulcer disease, splenic infarction, perforated viscus, vulvitis, ovarian torsion, PID, kidney stone, placenta abruption, this is not meant to be an all-inclusive list EKG interpreted by me (3pts min.). @ -None done X-rays interpreted by me (1pt min.). @ -None done CT interpreted by me (1pt min.). @ -None done U/S interpreted by me (1pt. min.). @ -Ultrasound shows hemorrhagic cyst versus endometriosis of the right ovary. Chronic finding. What testing was considered but not performed or refused? (CT, X-rays, U/S, labs)? Why? @ -None What meds were considered but not given or refused? Why? @ -None Did you discuss the management of the patient with other professionals (professionals i.e. , PA, EPILEPSY PHYSICIAN, lab, RT, psych nurse, administrator social welfare, chest pain coordinator, teacher, consumer loan officer, geriatric case manager)? Give summary @ -No Was smoking cessation discussed for >3mins.? @ -No Was critical care preformed (if so, how long)? @ -No Were there social determinants of health that impacted care today? How? (Homelessness, low income, unemployed, alcoholism, drug addiction, transportation, low edu. Level, literacy, decrease access to med. care, long term, r ehab)? @ -No Was there de-escalation of care discussed even if they declined (Discuss DNR or withdrawal of care, Hospice)? DNR status @ -No What co-morbidities impacted this encounter? (DM, HTN, Smoking, COPD, CAD, Cancer, CVA, ARF, Chemo, Hep., AIDS, mental health diagnosis, sleep apnea, morbid obesity)? @ -Endometriosis Was patient admitted / discharged? Hospital course, mention meds given and route, prescriptions, significant lab abnormalities, going to OR and other pertinent info. @ -Patient presents with acute on chronic pain in the right abdomen likely from her endometriosis. We will obtain ultrasound as well as basic labs. She will be symptomatically treated with IV pain meds as well as Zofran and fluids. Patient in agreement this plan. Vital signs within acceptable limits. Laboratory studies unremarkable. Imaging shows the chronic endometriosis and hemorrhagic cyst. Following multiple doses of pain meds, patient is feeling proved. She will go home. Follows up with her specialist in 2 days. I believe is reasonable to be discharged at this time. She will be given pain meds and discharged home. She was in agreement this plan. She also be given a copy of her disc as well as report. I will provide the patient with a prescription for [place]. I instructed the pa josse to follow up with their PCP in the next 1-3 days. I explained that the patient should return to the emergency department if they experience any worsening symptoms. Strict return precautions were discussed with the patient. The patient expressed understanding of these instructions. I answered all questions that the patient had. The patient was discharged home in good condition with their prescriptions and follow up information. Undiagnosed new problem with uncertain prognosis? @ -No Drug Therapy requiring intensive monitoring for toxicity (Heparin, Nitro, Insulin, Cardizem)? @ -No Were any procedures done? @ -No Diagnosis/symptom? @ -Endometriosis, ovarian cyst Acute, or Chronic, or Acute on Chronic? @ -Acute on chronic Uncomplicated (without systemic symptoms) or Complicated (systemic symptoms)? @ -Complicated Side effects of treatment? @ -No Exacerbation, Progression, or Severe Exacerbation? @ -No Poses a threat to life or bodily function? How? (Chest pain, [place], [place], pneumonia, PE, COPD, DKA, ARF, appy, cholecystitis, CVA, Diverticulitis, Homicidal, Suicidal, threat to staff... and all critical care pts) @ -Unlikely (Alvin Monterroso) - Lab Data Lab Results 09/04/23 09/04/23 09/04/23 Range/Units 13:48 13:48 13:48 WBC 8.7 (3.8-10.6) k/uL RBC 4.89 (3.80-5.40) m/uL Hgb 13.0 (11.4-16.0) gm/dL Hct 39.0 (34.0-46.0) % MCV 79.7 L (80.0-100.0) fL MCH 26.6 (25.0-35.0) pg MCHC 33.4 (31.0-37.0) g/dL RDW 17.0 H (11.5-15.5) % Plt Count 226 (150-450) k/uL MPV 7.9 Neutrophils % 76 % Lymphocytes % 17 % Monocytes % 4 % Eosinophils % 2 % Basophils % 0 % Neutrophils # 6.6 (1.3-7.7) k/uL Lymphocytes # 1.5 (1.0-4.8) k/uL Monocytes # 0.4 (0-1.0) k/uL Eosinophils # 0.1 (0-0.7) k/uL Basophils # 0.0 (0-0.2) k/uL Hypochromasia Slight Anisocytosis Slight Microcytosis Slight Sodium 138 (137-145) mmol/L Potassium 4.6 (3.5-5.1) mmol/L Chloride 109 H (98-107) mmol/L Carbon Dioxide 24 (22-30) mmol/L Anion Gap 5 mmol/L BUN 13 (7-17) mg/dL Creatinine 0.75 (0.52-1.04) mg/dL Est GFR (CKD-EPI)AfAm >90 (>60 ml/min/1.73 sqM) Est GFR (CKD-EPI)NonAf >90 (>60 ml/min/1.73 sqM) Glucose 87 (74-99) mg/dL Plasma Lactic Acid Manny (0.7-2.0) mmol/L Calcium 9.4 (8.4-10.2) mg/dL Total Bilirubin 0.4 (0.2-1.3) mg/dL AST 32 (14-36) U/L ALT 42 H (4-34) U/L Alkaline Phosphatase 67 (38-126) U/L Total Protein 6.7 (6.3-8.2) g/dL Albumin 4.2 (3.5-5.0) g/dL Amylase 51 (30-110) U/L Lipase 75 (23-300) U/L HCG, Qual Urine Color Colorless Urine Appearance Clear (Clear) Urine pH 6.5 (5.0-8.0) Ur Specific [place] 1.017 (1.001-1.035) Urine Protein Negative (Negative) Urine Glucose (UA) Negative (Negative) Urine Ketones Negative (Negative) Urine Blood Negative (Negative) Urine Nitrite Negative (Negative) Urine Bilirubin Negative (Negative) Urine Urobilinogen <2.0 (<2.0) mg/dL Ur Leukocyte Esterase Negative (Negative) 09/04/23 09/04/23 Range/Units 13:48 13:48 WBC (3.8-10.6) k/uL RBC (3.80-5.40) m/uL Hgb (11.4-16.0) gm/dL Hct (34.0-46.0) % MCV (80.0-100.0) fL MCH (25.0-35.0) pg MCHC (31.0-37.0) g/dL RDW (11.5-15.5) % Plt Count (150-450) k/uL MPV Neutrophils % % Lymphocytes % % Monocytes % % Eosinophils % % Basophils % % Neutrophils # (1.3-7.7) k/uL Lymphocytes # (1.0-4.8) k/uL Monocytes # (0-1.0) k/uL Eosinophils # (0-0.7) k/uL Basophils # (0-0.2) k/uL Hypochromasia Anisocytosis Microcytosis Sodium (137-145) mmol/L Potassium (3.5-5.1) mmol/L Chloride (98-107) mmol/L Carbon Dioxide (22-30) mmol/L Anion Gap mmol/L BUN (7-17) mg/dL Creatinine (0.52-1.04) mg/dL Est GFR (CKD-EPI)AfAm (>60 ml/min/1.73 sqM) Est GFR (CKD-EPI)NonAf (>60 ml/min/1.73 sqM) Glucose (74-99) mg/dL Plasma Lactic Acid Manny 0.7 (0.7-2.0) mmol/L Calcium (8.4-10.2) mg/dL Total Bilirubin (0.2-1.3) mg/dL AST (14-36) U/L ALT (4-34) U/L Alkaline Phosphatase (38-126) U/L Total Protein (6.3-8.2) g/dL Albumin (3.5-5.0) g/dL Amylase (30-110) U/L Lipase (23-300) U/L HCG, Qual Not Detected Urine Color Urine Appearance (Clear) Urine pH (5.0-8.0) Ur Specific [place] (1.001-1.035) Urine Protein (Negative) Urine Glucose (UA) (Negative) Urine Ketones (Negative) Urine Blood (Negative) Urine Nitrite (Negative) Urine Bilirubin (Negative) Urine Urobilinogen (<2.0) mg/dL Ur Leukocyte Esterase (Negative) Disposition <Carmela Hidalgo - Last Filed: 09/04/23 13:42> Is patient prescribed a controlled substance at d/c from ED?: Yes When asked, does pt state using other controlled substances?: Yes If prescribed controlled substance>3 days was MAPS reviewed?: Prescribed <3 Days If opioid is for acute pain is fill amount 7 days or less?: No If Rx opioid, was Start Talking consent form obtained?: Yes Time of Disposition: 16:00 <Alvin Monterroso - Last Filed: 09/04/23 16:40> Clinical Impression: Ovarian cyst, Endometriosis Disposition: HOME SELF-CARE Condition: Fair Instructions (If sedation given, give patient instructions): Endometriosis (ED) Additional Instructions: follow up with specialist on 09/06 regarding known ovarian cyst/endometriosis Prescriptions: HYDROcodone/APAP 5-325MG [[place] 5-325] 1 tab PO Q6HR PRN 3 Days #12 tab PRN Reason: Pain Referrals: Rosa Lozano MD [Primary Care Provider] - 1-2 days
[2023-09-04 14:00] LABS: Anisocytosis Slight; Basophils % (A) 0 %; Eosinophils # (A) 0.1 k/uL (0-0.7); Eosinophils % (A) 2 %; Hypochromasia Slight; Lymphocytes # (A) 1.5 k/uL (1.0-4.8); Lymphocytes % (A) 17 %; MCH 26.6 pg (25.0-35.0); MCHC 33.4 g/dL (31.0-37.0); MCV 79.7 fL (80.0-100.0); Mean Platelet Volume 7.9; Microcytosis Slight; Monocytes # (A) 0.4 k/uL (0-1.0); Monocytes % (A) 4 %; Neutrophils # (A) 6.6 k/uL (1.3-7.7); Neutrophils % (A) 76 %; Platelet Count 226 k/uL (150-450); RBC 4.89 m/uL (3.80-5.40); WBC 8.7 k/uL (3.8-10.6)
[2023-09-04 14:13] LABS: ALT 42 U/L (4-34); AST 32 U/L (14-36); African American GFR (CKD) >90 (>60 ml/min/1.73 sqM); Albumin 4.2 g/dL (3.5-5.0); Alkaline Phosphatase 67 U/L (38-126); Amylase 51 U/L (30-110); Anion Gap 5 mmol/L; Blood Urea Nitrogen 13 mg/dL (7-17); Calcium 9.4 mg/dL (8.4-10.2); Carbon Dioxide 24 mmol/L (22-30); Chloride 109 mmol/L (98-107); Glucose 87 mg/dL (74-99); Lipase 75 U/L (23-300); Non-African American GFR(CKD) >90 (>60 ml/min/1.73 sqM); Potassium 4.6 mmol/L (3.5-5.1); Sodium 138 mmol/L (137-145); Total Bilirubin 0.4 mg/dL (0.2-1.3); Total Protein 6.7 g/dL (6.3-8.2)
[2023-09-04] MEDS: HYDROmorphone 0.5 MG/0.5 ML SYRINGE IVP STA ×4 (14:25→16:10)
[2023-09-04] MEDS: ONDANSETRON 4 MG/2 ML VIAL IVP STA (14:26)
[2023-09-04 15:29] LABS: Appearance,Urine Clear (Clear); Bilirubin,Urine Negative (Negative); Blood,Urine Negative (Negative); Color,Urine Colorless; Glucose,Urine (UA) Negative (Negative); Ketones,Urine Negative (Negative); Leukocyte Esterase,Urine Negative (Negative); Nitrite,Urine Negative (Negative); PH, Urine 6.5 (5.0-8.0); Protein,Urine Negative (Negative); Specific Gravity,Urine 1.017 (1.001-1.035); Urobilinogen,Urine <2.0 mg/dL (<2.0)
--- NOTE | 2023-09-04 15:45 | US ---
EXAMINATION TYPE: US transvaginal DATE OF EXAM: 09/04/2023 COMPARISON: 07/27/23, 06/15/23 CLINICAL INDICATION: Female, 38 years old with history of Right sided pelvic pain; Right sided pelvic pain. Hysterectomy and left oophorectomy TECHNIQUE: Transvaginal (TV). Date of LMP: unknown EXAM MEASUREMENTS: Uterus: Surgically absent Endometrial Stripe: Surgically absent Right Ovary: 7.5 x 7.0 x 5.8 cm Left Ovary: Surgically absent 1. Uterus: Surgically absent 2. Endometrium: Surgically absent 3. Right Ovary: hypoechoic vascular area seen measuring 7.5 x 6.3 x 4.9cm. This area has increased i n size since previous exam 4. Left Ovary: Surgically absent Spectral, color and waveform doppler imaging shows good arterial and venous flow within the ovaries ; there is no evidence for ovarian torsion. 5. Bilateral Adnexa: small amount of ff 6. Posterior cul-de-sac: wnl IMPRESSION: Right ovarian endometrioma versus hemorrhagic cyst. Further evaluation MRI pelvis with IV contrast wo uld help confirm the diagnosis.
[2023-09-04 16:07] VITALS: BP 123/84; PULSE 76
== END 2023-09-04 16:16 | disposition home or self-care (01) ==
LOC: EC 13:03
DX: N83.201 Unspecified ovarian cyst, right side (principal); N80.9 Endometriosis, unspecified; Z87.891 Personal history of nicotine dependence; Z88.0 Allergy status to penicillin; Z88.8 Allergy status to other drugs, medicaments and biological substances
CPT/HCPCS: 36415; 80053; 82150; 83605; 83690; 85025; 81003; 84703; 93976; 76830; 99285; 96374; 96376 ×2; 96375; J2405; J1170

== ENCOUNTER 2023-09-06 18:28 | Emergency (ER) | payer BC ==
[2023-09-06 18:37] VITALS: TEMP 98.3
--- NOTE | 2023-09-06 19:22 | ED ---
Abdominal Pain HPI - General Chief Complaint: Abdominal Pain Stated Complaint: abd pain Time Seen by Provider: 09/06/23 19:09 Source: patient Mode of arrival: wheelchair Limitations: no limitations - History of Present Illness Initial Comments: 38-year-old female history of endometriosis presenting with chief complaint of abdominal pain. Patient is experiencing right lower quadrant pain. She was here on 09/03 and diagnosed with an ovarian cyst. Surgical history includes appendectomy and hysterectomy. States that the pain feels similar to her endometriosis and cyst induced pain. She was prescribed [place] for home but states that they have not been helping with her pain. She does have an upcoming appointment with her surgical aides teacher. No fevers. No vaginal bleeding or abnormal discharge. No nausea or vomiting. She did have diarrhea 2 days ago. - Related Data Previous Rx's Medication Instructions Recorded Tamsulosin [Flomax] 0.4 mg PO DAILY #30 cap 06/15/23 HYDROcodone/APAP 5-325MG [[place] 5] 1 each PO Q6HR PRN #12 tab 07/27/23 HYDROcodone/APAP 5-325MG [[place] 1 tab PO Q6HR PRN 3 Days #12 tab 09/04/23 5-325] traMADol HCl [Ultram] 50 mg PO Q6HR PRN 3 Days #12 tab 09/06/23 Allergies Allergy/AdvReac Type Severity Reaction Status Date / Time albuterol Allergy Rapid Verified 09/06/23 18:37 Heart Rate, swelling Penicillins AdvReac Severe Rapid Verified 09/06/23 18:37 Heart Rate, vision changes and elavated bp Review of Systems ROS Statement: Those systems with pertinent positive or pertinent negative responses have been documented in the HPI. ROS Other: All systems not noted in ROS Statement are negative. Past Medical History Past Medical History: COPD Additional Past Medical History / Comment(s): Murmur when young, endometriosis, cyst on ovary. History of Any Multi-Drug Resistant Organisms: None Reported Past Surgical History: Appendectomy, Section, Hysterectomy Additional Past Surgical History / Comment(s): x2 c- scetion, reconstructive Adri[place] SX, lap surgery for endometriosis Past Anesthesia/Blood Transfusion Reactions: No Reported Reaction Past Psychological History: No Psychological Hx Reported Smoking Status: Former smoker Past Alcohol Use History: Occasional Past Drug Use History: None Reported - Past Family History Father History Unknown: Yes General Exam Limitations: no limitations General appearance: alert, in distress (Patient is crying and holding her abdomen and pain) Head exam: Present: atraumatic, normocephalic Eye exam: Present: normal appearance Neck exam: Present: normal inspection. Absent: meningismus Respiratory exam: Absent: respiratory distress Cardiovascular Exam: Present: regular rate GI/Abdominal exam: Present: soft, distended, tenderness. Absent: guarding, rebound, rigid Neurological exam: Present: alert, oriented X3 Psychiatric exam: Present: normal affect, normal mood Skin exam: Present: warm, dry Course Vital Signs 09/06/23 09/06/23 18:35 22:24 Temperature 98.3 F Pulse Rate 87 94 Respiratory 16 18 Rate Blood Pressure 120/83 121/80 O2 Sat by Pulse 95 98 Oximetry Medical Decision Making - Medical Decision Making Was pt. sent in by a medical professional or institution (, PA, BILINGUAL RECEPTIONIST, urgent care, hospital, or shelter...) When possible be specific @ -No Did you speak to anyone other than the patient for history (EMS, parent, family, police, friend...)? What history was obtained from this source @ -No Did you review nursing and triage notes (agree or disagree)? Why? @ -I reviewed and agree with nursing and triage notes Were old charts reviewed (outside hosp., previous admission, EMS record, old EKG, old radiological studies, urgent care reports/EKG's, shelter records)? Report findings @ -Reviewed ER visit from 09/03 including ultrasound which shows hypoechoic vascular area measuring 7.5 x 6.3 x 4.9 cm thought to be right ovarian endometrioma versus hemorrhagic cyst Differential Diagnosis (chest pain, altered mental status, abdominal pain women, abdominal pain men, vaginal bleeding, weakness, fever, dyspnea, syncope, headache, dizziness, GI bleed, back pain, seizure, CVA, palpatations, mental health, musculoskeletal)? @ -[facility] Differential Abdominal Pain Women: Appendicitis, Cholecystitis, diverticulosis, ischemic bowel, pancreatitis, hepatitis, UTI, gastroenteritis, AAA, incarcerated hernia, bowel obstruction, constipation, inflammatory bowel, hepatitis, peptic ulcer disease, splenic infarction, perforated viscus, vulvitis, ovarian torsion, PID, kidney stone, pl acenta abruption... This is not meant to be an all-inclusive list EKG interpreted by me (3pts min.). @ -As above X-rays interpreted by me (1pt min.). @ -None done CT interpreted by me (1pt min.). @ -CT shows no acute intra-abdominal/pelvic process. There is interval increase in size of the right adnexal complex lesion which now measures up to 7.1 cm compared to 5.9 study reference postsurgical changes. U/S interpreted by me (1pt. min.). @ -None done What testing was considered but not performed or refused? (CT, X-rays, U/S, labs)? Why? @ -None What meds were considered but not given or refused? Why? @ -None Did you discuss the management of the patient with other professionals (francisco santiago i.e. , PA, BILINGUAL RECEPTIONIST, lab, RT, psych nurse, web content & social media manager, cinder pitman, teacher, corporation officer, case folder)? Give summary @ -No Was smoking cessation discussed for >3mins.? @ -No Was critical care preformed (if so, how long)? @ -No Were there social determinants of health that impacted care today? How? (Homelessness, low income, unemployed, alcoholism, drug addiction, transportation, low edu. Level, literacy, decrease access to med. care, long term, rehab)? @ -No Was there de-escalation of care discussed even if they declined (Discuss DNR or withdrawal of care, Hospice)? DNR status @ -No What co-morbidities impacted this encounter? (DM, HTN, Smoking, COPD, CAD, Cancer, CVA, ARF, Chemo, Hep., AIDS, mental health diagnosis, sleep apnea, morbid obesity)? @ -None Was patient admitted / discharged? Hospital course, mention meds given and route, prescriptions, significant lab abnormalities, going to OR and other pertinent info. @ -38-year-old female with history of endometriosis presenting with chief complaint of abdominal pain. Feels similar to previous endometriosis related pain. She was here 09/03 diagnosed with an ovarian cyst. She was taking [place] at home which has not seemed to control the pain. History and physical exam are conducted. Lab work shows no leukocytosis or anemia. Urine shows no infectious process. CT is obtained which shows 7.1 cm cyst, consistent with ultrasound from 2 days ago. Patient was given pain medication and eventually reports some improvement. She is provided with pain medication for home and has an appointment with a surgeon tomorrow that she will follow-up at. Discharged home. Follow-up with PCP. Report back to ER with any new or worsening symptoms. Discussed return parameters and answered all questions. Patient conveyed verbal understanding and agreed to the plan. I discussed this case in detail with my attending Dr. Green Undiagnosed new problem with uncertain prognosis? @ -No Drug Therapy requiring intensive monitoring for toxicity (Heparin, Nitro, Insulin, Cardizem)? @ -No Were any procedures done? @ -No Diagnosis/symptom? @ -Ovarian cyst Acute, or Chronic, or Acute on Chronic? @ -Acute Uncomplicated (without systemic symptoms) or Complicated (systemic symptoms)? @ -Uncomplicated Side effects of treatment? @ -No Exacerbation, Progression, or Severe Exacerbation? @ -No Poses a threat to life or bodily function? How? (Chest pain, [place], [place], pneumonia, PE, COPD, DKA, ARF, appy, cholecystitis, CVA, Diverticulitis, Homicidal, Suicidal, threat to staff... and all critical care pts) @ -Unlikely - Lab Data Result diagrams: 09/06/23 19:27 09/06/23 19:27 Lab Results 09/06/23 09/06/23 09/06/23 Range/Units 19:27 19:27 19:27 WBC 7.9 (3.8-10.6) k/uL RBC 5.03 (3.80-5.40) m/uL Hgb 13.1 (11.4-16.0) gm/dL Hct 39.6 (34.0-46.0) % MCV 78.9 L (80.0-100.0) fL MCH 26.0 (25.0-35.0) pg MCHC 33.0 (31.0-37.0) g/dL RDW 16.5 H (11.5-15.5) % Plt Count 271 (150-450) k/uL MPV 7.5 Neutrophils % 66 % Lymphocytes % 26 % Monocytes % 4 % Eosinophils % 3 % Basophils % 1 % Neutrophils # 5.2 (1.3-7.7) k/uL Lymphocytes # 2.1 (1.0-4.8) k/uL Monocytes # 0.3 (0-1.0) k/uL Eosinophils # 0.3 (0-0.7) k/uL Basophils # 0.0 (0-0.2) k/uL Anisocytosis Slight Microcytosis Slight Sodium 138 (137-145) mmol/L Potassium 4.1 (3.5-5.1) mmol/L Chloride 109 H (98-107) mmol/L Carbon Dioxide 23 (22-30) mmol/L Anion Gap 6 mmol/L BUN 7 (7-17) mg/dL Creatinine 0.63 (0.52-1.04) mg/dL Est GFR (CKD-EPI)AfAm >90 (>60 ml/min/1.73 sqM) Est GFR (CKD-EPI)NonAf >90 (>60 ml/min/1.73 sqM) Glucose 83 (74-99) mg/dL Plasma Lactic Acid Manny 1.3 (0.7-2.0) mmol/L Calcium 9.0 (8.4-10.2) mg/dL Total Bilirubin 0.2 (0.2-1.3) mg/dL AST 34 (14-36) U/L ALT 41 H (4-34) U/L Alkaline Phosphatase 68 (38-126) U/L Total Protein 6.6 (6.3-8.2) g/dL Albumin 4.0 (3.5-5.0) g/dL Amylase 43 (30-110) U/L Lipase 39 (23-300) U/L Urine Color Urine Appearance (Clear) Urine pH (5.0-8.0) Ur Specific [place] (1.001-1.035) Urine Protein (Negative) Urine Glucose (UA) (Negative) Urine Ketones (Negative) Urine Blood (Negative) Urine Nitrite (Negative) Urine Bilirubin (Negative) Urine Urobilinogen (<2.0) mg/dL Ur Leukocyte Esterase (Negative) 09/06/23 Range/Units 21:22 WBC (3.8-10.6) k/uL RBC (3.80-5.40) m/uL Hgb (11.4-16.0) gm/dL Hct (34.0-46.0) % MCV (80.0-100.0) fL MCH (25.0-35.0) pg MCHC (31.0-37.0) g/dL RDW (11.5-15.5) % Plt Count (150-450) k/uL MPV Neutrophils % % Lymphocytes % % Monocytes % % Eosinophils % % Basophils % % Neutrophils # (1.3-7.7) k/uL Lymphocytes # (1.0-4.8) k/uL Monocytes # (0-1.0) k/uL Eosinophils # (0-0.7) k/uL Basophils # (0-0.2) k/uL Anisocytosis Microcytosis Sodium (137-145) mmol/L Potassium (3.5-5.1) mmol/L Chloride (98-107) mmol/L Carbon Dioxide (22-30) mmol/L Anion Gap mmol/L BUN (7-17) mg/dL Creatinine (0.52-1.04) mg/dL Est GFR (CKD-EPI)AfAm (>60 ml/min/1.73 sqM) Est GFR (CKD-EPI)NonAf (>60 ml/min/1.73 sqM) Glucose (74-99) mg/dL Plasma Lactic Acid Manny (0.7-2.0) mmol/L Calcium (8.4-10.2) mg/dL Total Bilirubin (0.2-1.3) mg/dL AST (14-36) U/L ALT (4-34) U/L Alkaline Phosphatase (38-126) U/L Total Protein (6.3-8.2) g/dL Albumin (3.5-5.0) g/dL Amylase (30-110) U/L Lipase (23-300) U/L Urine Color Colorless Urine Appearance Clear (Clear) Urine pH 7.5 (5.0-8.0) Ur Specific [place] 1.026 (1.001-1.035) Urine Protein Negative (Negative) Urine Glucose (UA) Negative (Negative) Urine Ketones Negative (Negative) Urine Blood Negative (Negative) Urine Nitrite Negative (Negative) Urine Bilirubin Negative (Negative) Urine Urobilinogen <2.0 (<2.0) mg/dL Ur Leukocyte Esterase Negative (Negative) Disposition Clinical Impression: Complex cyst of right ovary Disposition: HOME SELF-CARE Condition: Fair Instructions (If sedation given, give patient instructions): Ovarian Cyst (ED) Additional Instructions: Follow-up with TRANSPORT TECHNICIAN. Report back to ER with any new or worsening symptoms. Prescriptions: traMADol HCl [Ultram] 50 mg PO Q6HR PRN 3 Days #12 tab PRN Reason: Pain Is patient prescribed a controlled substance at d/c from ED?: Yes When asked, does pt state using other controlled substances?: No If prescribed controlled substance>3 days was MAPS reviewed?: Prescribed <3 Days If opioid is for acute pain is fill amount 7 days or less?: Yes Referrals: Rosa Lozano MD [Primary Care Provider] - 1-2 days Time of Disposition: 22:18
[2023-09-06] MEDS: ONDANSETRON 4 MG/2 ML VIAL IVP STA (19:30)
[2023-09-06] MEDS: HYDROmorphone 1 MG/ML 1 ML SYRINGE IVP STA ×2 (19:30→20:38)
[2023-09-06] MEDS: SODIUM CHLORIDE 0.9% 1,000 ML IV STA (19:39)
[2023-09-06 19:53] LABS: Anisocytosis Slight; Basophils % (A) 1 %; Eosinophils # (A) 0.3 k/uL (0-0.7); Eosinophils % (A) 3 %; HCT 39.6 % (34.0-46.0); HGB 13.1 gm/dL (11.4-16.0); Lymphocytes # (A) 2.1 k/uL (1.0-4.8); Lymphocytes % (A) 26 %; MCV 78.9 fL (80.0-100.0); Mean Platelet Volume 7.5; Microcytosis Slight; Monocytes # (A) 0.3 k/uL (0-1.0); Monocytes % (A) 4 %; Neutrophils # (A) 5.2 k/uL (1.3-7.7); Neutrophils % (A) 66 %; Platelet Count 271 k/uL (150-450); RBC 5.03 m/uL (3.80-5.40); RDW 16.5 % (11.5-15.5); WBC 7.9 k/uL (3.8-10.6)
[2023-09-06 20:05] LABS: ALT 41 U/L (4-34); AST 34 U/L (14-36); African American GFR (CKD) >90 (>60 ml/min/1.73 sqM); Alkaline Phosphatase 68 U/L (38-126); Amylase 43 U/L (30-110); Anion Gap 6 mmol/L; Blood Urea Nitrogen 7 mg/dL (7-17); Carbon Dioxide 23 mmol/L (22-30); Chloride 109 mmol/L (98-107); Glucose 83 mg/dL (74-99); Lipase 39 U/L (23-300); Non-African American GFR(CKD) >90 (>60 ml/min/1.73 sqM); Potassium 4.1 mmol/L (3.5-5.1); Sodium 138 mmol/L (137-145); Total Bilirubin 0.2 mg/dL (0.2-1.3); Total Protein 6.6 g/dL (6.3-8.2)
[2023-09-06 21:38] LABS: Appearance,Urine Clear (Clear); Bilirubin,Urine Negative (Negative); Blood,Urine Negative (Negative); Color,Urine Colorless; Glucose,Urine (UA) Negative (Negative); Ketones,Urine Negative (Negative); Leukocyte Esterase,Urine Negative (Negative); Nitrite,Urine Negative (Negative); PH, Urine 7.5 (5.0-8.0); Protein,Urine Negative (Negative); Specific Gravity,Urine 1.026 (1.001-1.035); Urobilinogen,Urine <2.0 mg/dL (<2.0)
--- NOTE | 2023-09-06 21:49 | CT ---
EXAMINATION TYPE: CT abdomen pelvis w con CT DLP: 991.2 mGycm, Automated exposure control for dose reduction was used. DATE OF EXAM: 09/06/2023 9:06 PM COMPARISON: CT abdomen pelvis most recent from CLINICAL INDICATION:Female, 38 years old with history of RUQ pain; Rt side abdominal pain, Hx of endo metriosis. Hysterectomy and 1 ovary removed. Ovarian cyst on remaining ovary. TECHNIQUE: Axial CT abdomen pelvis w con;Sagittal and coronal reformats were created on a separate w orkstation. Contrast used:80cc mL of Isovue 300 with IV Contrast, (none if empty) Oral contrast used: without Oral Contrast (none if empty) FINDINGS: LOWER CHEST: Unremarkable ABDOMEN LIVER: Unremarkable GALLBLADDER AND BILE DUCTS: Unremarkable. PANCREAS: Unremarkable. SPLEEN: Unremarkable. ADRENAL GLANDS: Unremarkable. KIDNEYS AND URETERS: No evidence of hydronephrosis or renal calculus. The ureters are unremarkable. PELVIS BLADDER: Unremarkable REPRODUCTIVE: Status post hysterectomy. There is redemonstration of a cystic lesion within the right adnexa which has a more homogenous slightly complex attenuation when compared to the most recent CT i n reference. There is poor differentiation between a cystic and solid component on today's lesion whi ch roughly measures an internal density of 24.0 Hounsfield units. There is interval increase in size of this lesion which now measures 7.1 cm in greatest dimension compared to 5.9 cm on the recent study in reference. ABDOMEN & PELVIS STOMACH AND BOWEL: Stomach is grossly unremarkable. Small bowel is of normal caliber. Appendectomy larsen rgical clips are suggested in the right lower quadrant of the abdomen. No evidence of bowel obstructi on. PERITONEUM/RETROPERITONEUM: No evidence of pneumoperitoneum. Trace free fluid suggested within the pe lvis. VASCULATURE: No evidence of aortic aneurysm. MUSCULOSKELETAL: Grade 2 anterolisthesis of L5 on S1 again seen with associated bilateral pars defect s No acute osseous abnormalities LYMPH NODES: No gross evidence for lymphadenopathy. SOFT TISSUE/ABDOMINAL WALL: Unremarkable IMPRESSION: 1. No acute intra-abdominal/pelvic process. 2. There is interval increase in size of a right adnexal complex lesion which now measures up to 7.1 cm compared to 5.9 cm on study in reference. Recommend further characterization with MRI pelvis with IV contrast if not already completed. Please note large adnexal lesions can predispose patient to ova florencio torsion. 3. Postsurgical changes.
[2023-09-06 22:25] VITALS: BP 121/80; PULSE 94; RESP 18
[2023-09-06] MEDS: traMADol 50 MG STARTER PACK 3 TAB BTL PO STA (22:31)
[2023-09-06] MEDS: HYDROmorphone 0.5 MG/0.5 ML SYRINGE IVP STA (22:39)
== END 2023-09-06 22:46 | disposition home or self-care (01) ==
LOC: EC 18:28
DX: N83.201 Unspecified ovarian cyst, right side (principal); Z87.891 Personal history of nicotine dependence; Z88.0 Allergy status to penicillin; Z88.8 Allergy status to other drugs, medicaments and biological substances; Z90.49 Acquired absence of other specified parts of digestive tract
CPT/HCPCS: 36415; 80053; 82150; 83605; 83690; 85025; 81003; 74177; 99284; 96374; 96375; 96376 ×2; 96361; J2405; J1170 ×2; Q9967

== ENCOUNTER 2023-09-12 13:10 | Emergency (ER) | payer BC ==
[2023-09-12] MEDS ORDERED: HYDROmorphone 0.5 MG/0.5 ML SYRINGE ONE ×4 (13:44→20:30)
[2023-09-12] MEDS ORDERED: ONDANSETRON 4 MG ODT STARTER PACK 2 TAB BTL ONE (20:30)
[2023-09-12] MEDS ORDERED: KETOROLAC 15 MG/ML 1 ML VIAL ONE (20:30)
[2023-09-12] MEDS ORDERED: ACET/COD 300 MG/30 MG STARTER PACK 6 TAB BTL PO ONE (20:30)
[2023-09-12] MEDS ORDERED: SODIUM CHLORIDE 0.9% 1,000 ML BAG ONE (23:59)
--- NOTE | 2023-10-10 07:04 | CT ---
EXAM: CT abdomen and pelvis without contrast DATE OF EXAM: 09/12/23 Reason for study: Pain in right lower quadrant, right flank pain. COMPARISON: None, please note PACS downtime occurred during the radiologist interpretation of these i mages with limited priors/reports.. TECHNIQUE: CT abdomen/pelvis, with axial imaging and sagittal and coronal reformats without IV or oral contrast. Lack of IV or oral contrast limits evaluation of solid and hollow organ viscera.. One or more CT dos e reduction strategies were utilized during this examination. Total DLP administered was 596 mGycm. FINDINGS: LOWER CHEST: Unremarkable ABDOMEN LIVER: Unremarkable GALLBLADDER AND BILE DUCTS: Unremarkable. PANCREAS: Unremarkable. SPLEEN: Unremarkable. ADRENAL GLANDS: Unremarkable. KIDNEYS AND URETERS: No evidence of hydronephrosis or renal calculus. The ureters are unremarkable. PELVIS BLADDER: Unremarkable REPRODUCTIVE: Right adnexal cyst measuring up to 7.2 x 6.5 x 6.7 cm. The uterus is surgically absent. ABDOMEN & PELVIS STOMACH AND BOWEL: Stomach and duodenum are unremarkable. No evidence of bowel obstruction. Appendix surgically absent. PERITONEUM: No evidence of pneumoperitoneum. No significant free fluid identified. VASCULATURE: No evidence of aortic aneurysm. MUSCULOSKELETAL: No acute osseous abnormalities. Grade 2 anterolisthesis of L5 on S1 with bilateral s pondylolysis. No significant spinal canal stenosis. LYMPH NODES: No gross evidence for lymphadenopathy. SOFT TISSUE/ABDOMINAL WALL: Unremarkable IMPRESSION: No definitive acute abdominal process to explain the patient's pain. There is a large right adnexal c yst possibly ovarian, correlate for signs and symptoms of ovarian torsion. Findings communicated to Dr. Sood on 09/12/2023 2: [address] Duy Katz.
--- NOTE | 2023-10-10 11:50 | CT ---
JAVIER COLON [id number] : 1985 EXAMINATION: CT Abd/Pelvis w/ Contrast TECHNIQUE: Contiguous axial scanning of the abdomen and pelvis following administration of 100 mL Iso georgette-300 IV contrast. Delayed images through the kidneys and coronal and sagittal reconstructions were performed. Automated exposure control for dose reduction was used. DATE: 09/12/2023 5:33 PM COMPARISON: Noncontrast CT earlier today HISTORY: 38-year-old female lower abdominal pain, follow-up exam FINDINGS: The heart is normal size without pericardial effusion. Lung bases clear without pleural effusion. Tiny hiatal hernia. Liver borderline enlarged at 17.5 cm. No focal lesion. No biliary ductal dilatation. Portal venous sy stem is patent. Gallbladder, adrenal glands, kidneys, spleen, and pancreas within normal limits. No dilated small bowel, free fluid, or free air. No mesenteric or retroperitoneal lymphadenopathy. Surgical material right lower quadrant likely relates to prior appendectomy. Scattered mild stool is present. No pericolonic inflammatory change. Bladder urine distended. Uterus surgically absent. Possible small high riding left ovary measuring 1.4 cm on axial image 50. Redemonstrated cystic mass in the right adnexa measuring 7.5 x 6.9 cm (versus 7.3 x 7.1 cm, previousl y, not significantly changed). This shows some mural based irregular thickening along the anterior ma rgin measuring up to 1.1 cm thick. Trace cul-de-sac free fluid is noted. No pelvic adenopathy. Bones: Bilateral L5 pars defects with grade 2 anterolisthesis L5-S1 and moderate to severe degenerati ve disc disease here at this level. IMPRESSION: 1. Redemonstrated large cystic lesion in the pelvis, slightly towards the right, probably of ovarian etiology. Measuring up to 7.5 cm, relatively unchanged. Given some irregular mural thickening along the anterior margin, consider the possibility of a large hemorrhagic cyst with retractile clot versus a cystic epithelial ovarian neoplasm. Recommend PHYSICAL THERAPIST TECHNICIAN referral and further pelvic ultrasound evalua tion for better characterization. 2. Status post hysterectomy. Trace cul-de-sac free fluid probably physiologic. 3. Tiny hiatal hernia. 4. Bilateral L5 pars defects with grade 2 anterolisthesis L5-S1."
--- NOTE | 2023-10-10 12:54 | US ---
Site ID [facility] Anita Merino ID [id number] 1985 Age/Gender: 38Y, F Order # N/A Procedure US Transvaginal Date 09/12/2023 3:19:00 PM EXAMINATION TYPE: US transvaginal DATE OF EXAM: 09/28/2023 COMPARISON: Transvaginal ultrasound 09/04/2023, 06/15/2023, pelvic ultrasound 07/27/2023, CT abdomen and pelvis 06/15/2023. CLINICAL INDICATION: Female, 38 year old with history of right ovarian cyst, history of partial hyste rectomy in March, right-sided pelvic pain. Reported history of endometriosis. TECHNIQUE: Transvaginal (TV). Multiple grayscale and color Doppler transvaginal ultrasound images w ere obtained. Delayed interpretation due to institutional cyber attack. EXAM MEASUREMENTS: Uterus: Surgically absent cm Endometrial Stripe: Surgically absent cm Right Ovary: 7.4 x 7.4 x 5.1 cm Left Ovary: Surgically absent cm 1. Uterus: Surgically absent 2. Endometrium: Surgically absent 3. Right Ovary: Enlarged with a volume of 146 mL. Complex area seen within the right ovary measuring 5.8 x 6.8 x 4.4 cm. This demonstrates homogeneous low level internal echoes without internal color f low Arterial and venous waveforms seen within the right ovary. No evidence for torsion. 4. Left Ovary: Surgically absent 5. Bilateral Adnexa: Free fluid seen within the right adnexa adjacent to the right ovary. 6. Posterior cul-de-sac: Appears within normal limits IMPRESSION: 1. Complex right ovarian 6.8 cm cystic lesion with ultrasound features most compatible with an endome trioma. 2. Postsurgical changes from hysterectomy and left oophorectomy. 3. Trace simple appearing free fluid within the right adnexa.
== END 2023-09-12 20:57 | disposition home or self-care (01) ==
LOC: EC 13:10
DX: N83.201 Unspecified ovarian cyst, right side (principal)
CPT/HCPCS: 51798; 74176; 74177; 76830; 80053; 81003; 85025; 96361; 96374; 96375; 96376; 99284

== ENCOUNTER 2023-09-24 13:53 | Emergency (ER) | payer BC ==
[2023-09-24] MEDS ORDERED: SODIUM CHLORIDE 0.9% 1,000 ML BAG ONE (14:15)
[2023-09-24] MEDS ORDERED: HYDROmorphone 1 MG/ML 1 ML SYRINGE ONE ×3 (14:45→19:08)
[2023-09-24] MEDS ORDERED: ONDANSETRON 4 MG/2 ML VIAL ONE (14:45)
[2023-09-24] MEDS ORDERED: MORPHINE SULFATE 4 MG/ML SYRINGE ONE (17:18)
[2023-09-24] MEDS ORDERED: ACET/COD 300 MG/30 MG STARTER PACK 6 TAB BTL PO ONE (19:08)
--- NOTE | 2023-10-24 18:34 | US ---
Patient Anita Bean ID [id number] Order # EXAMINATION TYPE: US pelvic complete DATE OF EXAM: 09/24/2023 COMPARISON: NONE CLINICAL INDICATION: Pelvic pain TECHNIQUE: Transvaginal (TV). Date of LMP: EXAM MEASUREMENTS: Endometrial Stripe: cm Right Ovary: 6 x 8 x 6 cm 1. Uterus: Absent 2. Right Ovary: Right ovary is enlarged with a vascular nodular heterogenous area with complex appea ring fluid surrounding. Workup for neoplasm is recommended. 3. Left Ovary: Surgically absent Spectral, color and waveform doppler imaging shows good arterial and venous flow within the ovaries ; there is no evidence for ovarian torsion. 6. Posterior cul-de-sac: Some hypoechoic free fluid is within the cul-de-sac. IMPRESSION: Complex appearing right ovarian cyst with a solid vascular nodule within. Additional work up for neoplasm is recommended.
== END 2023-09-24 19:00 | disposition home or self-care (01) ==
LOC: EC 13:53 → EDSTATUS 16:00 → EC 19:00
DX: N83.201 Unspecified ovarian cyst, right side (principal)
CPT/HCPCS: 76830; 93976; 99283

== ENCOUNTER 2023-09-26 12:19 | Emergency (ER) | payer BC ==
[2023-09-26] MEDS ORDERED: HYDROmorphone 1 MG/ML 1 ML SYRINGE ONE (13:17)
[2023-09-26] MEDS ORDERED: ONDANSETRON 4 MG/2 ML VIAL ONE (13:17)
[2023-09-26] MEDS ORDERED: SODIUM CHLORIDE 0.9% 1,000 ML BAG ONE (13:26)
[2023-09-26] MEDS ORDERED: HYDROmorphone 0.5 MG/0.5 ML SYRINGE ONE ×2 (14:29→18:13)
[2023-09-26] MEDS ORDERED: ACETAMINOPHEN TAB 500 MG TAB ONE (16:02)
[2023-09-26] MEDS ORDERED: KETOROLAC 15 MG/ML 1 ML VIAL ONE (16:02)
[2023-09-26] MEDS ORDERED: ACET/COD 300 MG/30 MG STARTER PACK 6 TAB BTL PO ONE (18:25)
--- NOTE | 2023-10-25 11:02 | US ---
Patient: Anita Bean Ordering Physician: Unknown, Unknown ID: [id number] Phone, Pager: Phone: N/A Kunal hannah: N/A : 1985 Age/Gender: 38Y, F Primary Location: N/A Procedure: US Transvaginal Study Sim e: 09/26/2023 5:28:00 PM EXAMINATION TYPE: US transvaginal DATE OF EXAM: 09/26/2023 COMPARISON: Multiple ultrasounds and CT 09/06/2023. CLINICAL INDICATION: HISTORY: PATIENT STATES RLQ PAIN FOR 3 DAYS, HX OF CYST. PATIENT HAS PARTIAL HYS TERECTOMY AND LEFT OOPHORECTOMY. PATIENT HAS SURGERY SCHEDULED FOR RIGHT OVARIAN CYST REMOVAL IN . TECHNIQUE: Transvaginal (TV) and Transabdominal (TA) . Transabdominal sonographic images of the pel vis were acquired. Transvaginal sonographic images were medically necessary to better assess the fol lowing anatomy: EXAM MEASUREMENTS: 1. Uterus: Surgically absent 2. Endometrium: Surgically absent 3. Right Ovary: THERE IS A 6.8 X 5.2 X 6.8 CM AREA WITH LOW LEVEL ECHOES SEEN WITHIN THE RIGHT OVARY / RIGHT ADNEXA. THERE IS A COMPLEX 4.3 X 3.6 X 3.8CM AREA WITHIN WITH THIN SEPTATIONS AND COLOR DOPPL ER FLOW appropriate arterial and venous spectral waveforms to the ovary. 4. Left Ovary surgically absent IMPRESSION: Right adnexal complex cyst which may represent the ovary with mural soft tissue vascular mass versus the underlying ovary. There is appropriate arterial and spectral venous waveforms within this lesion. The larger lesion with low level echoes favors endometrioma versus hemorrhagic cyst.
== END 2023-09-26 18:25 | disposition home or self-care (01) ==
LOC: EC 12:19
DX: N83.201 Unspecified ovarian cyst, right side (principal)
CPT/HCPCS: 76830; 93976; 96361; 96374; 96375; 96376; 99284

== ENCOUNTER 2023-10-20 20:44 | Emergency (ER) | payer BC ==
[2023-10-20 20:51] VITALS: TEMP 98.2
--- NOTE | 2023-10-20 21:10 | ED ---
Abdominal Pain HPI - General Source: patient, RN notes reviewed Mode of arrival: ambulatory Limitations: no limitations <Iman Wu - Last Filed: 10/20/23 21:07> <Danielle Green - Last Filed: 11/03/23 00:29> - General Chief Complaint: Abdominal Pain Stated Complaint: Abd Pain Time Seen by Provider: 10/20/23 21:00 - History of Present Illness Initial Comments: Quick [id number] female history of endometriosis presents emergency department chief complaint of worsening abdominal pain. Patient states that she had vaginal bleeding on Monday. Denies fevers, chills, endorses diarrhea and nausea (Iman Wu) 38-year-old female presents emergency department reporting worsening abdominal pain. Patient has been seen several times for this complaint. She does have a history of endometriosis. She is status post hysterectomy. Patient continues to have an ovary. She had her menstrual cycle last week. Began having immense pain earlier today. Does not have anything at home to take for the pain. Denies fevers or chills. Does admit to diarrhea and nausea. No vomiting. No heavy vaginal bleeding. No black or bloody stools. Patient is following with an endometriosis specialist and is supposed to be having surgery to remove her remaining ovary. (Danielle Green) - Related Data Previous Rx's Medication Instructions Recorded Tamsulosin [Flomax] 0.4 mg PO DAILY #30 cap 06/15/23 HYDROcodone/APAP 5-325MG [[place] 5] 1 each PO Q6HR PRN #12 tab 07/27/23 HYDROcodone/APAP 5-325MG [[place] 1 tab PO Q6HR PRN 3 Days #12 tab 09/04/23 5-325] traMADol HCl [Ultram] 50 mg PO Q6HR PRN 3 Days #12 tab 09/06/23 Allergies Allergy/AdvReac Type Severity Reaction Status Date / Time albuterol Allergy Rapid Verified 10/20/23 20:51 Heart Rate, swelling Penicillins AdvReac Severe Rapid Verified 10/20/23 20:51 Heart Rate, vision changes and elavated bp Review of Systems ROS Other: All systems not noted in ROS Statement are negative. <Iman Wu - Last Filed: 10/20/23 21:07> ROS Other: All systems not noted in ROS Statement are negative. <Danielle Green A - Last Filed: 11/03/23 00:29> ROS Statement: Those systems with pertinent positive or pertinent negative responses have been documented in the HPI. Past Medical History Past Medical History: COPD Additional Past Medical History / Comment(s): Murmur when young, endometriosis, cyst on ovary. History of Any Multi-Drug Resistant Organisms: None Reported Past Surgical History: Appendectomy, Section, Hysterectomy Additional Past Surgical History / Comment(s): x2 c- scetion, reconstructive nASAL SX, lap surgery for endometriosis Past Anesthesia/Blood Transfusion Reactions: No Reported Reaction Past Psychological History: No Psychological Hx Reported Smoking Status: Former smoker Past Alcohol Use History: Occasional Past Drug Use History: None Reported - Past Family History Father History Unknown: Yes <Iman Wu - Last Filed: 10/20/23 21:07> General Exam Limitations: no limitations <Iman Wu - Last Filed: 10/20/23 21:07> General appearance: alert, in distress Head exam: Present: atraumatic, normocephalic, normal inspection Eye exam: Present: normal appearance, PERRL, EOMI. Absent: scleral icterus, conjunctival injection, periorbital swelling ENT exam: Present: normal exam, mucous membranes moist Neck exam: Present: normal inspection. Absent: tenderness, meningismus, lymphadenopathy Respiratory exam: Present: normal lung sounds bilaterally. Absent: respiratory distress, wheezes, rales, rhonchi, stridor Cardiovascular Exam: Present: regular rate, normal rhythm, normal heart sounds. Absent: systolic murmur, diastolic murmur, rubs, gallop, clicks GI/Abdominal exam: Present: soft, tenderness (Right lower quadrant), normal bowel sounds. Absent: distended, guarding, rebound, rigid Extremities exam: Present: normal inspection, full ROM, normal capillary refill. Absent: tenderness, pedal edema, joint swelling, calf tenderness Back exam: Present: normal inspection Neurological exam: Present: alert, oriented X3, CN II-XII intact Psychiatric exam: Present: normal affect, normal mood Skin exam: Present: warm, dry, intact, normal color. Absent: rash <Danielle Green Sarah - Last Filed: 11/03/23 00:29> - General Exam Comments Initial Comments: Visual Physical Exam Vital signs reviewed General: Well-appearing, nontoxic, no acute distress. Head: Normocephalic, atraumatic Eyes: PERRLA, EOMI ENT: Airway patent Chest: Nonlabored breathing Skin: No visual rash, normal skin tone Neuro: Alert and oriented 3 Musculoskeletal: No gross abnormalities (Iman Wu) Course Vital Signs 10/20/23 10/20/23 20:49 23:53 Temperature 98.2 F Pulse Rate 96 80 Respiratory 18 16 Rate Blood Pressure 123/89 114/81 O2 Sat by Pulse 98 97 Oximetry Medical Decision Making <Iman Wu - Last Filed: 10/20/23 21:07> - Lab Data Result diagrams: 10/20/23 22:30 10/20/23 22:30 <Danielle Green - Last Filed: 11/03/23 00:29> - Medical Decision Making I completed the quick note portion of this chart signed Iman Wu PA-C (Iman Wu) Was pt. sent in by a medical professional or institution ([facility], [facility], urgent care, hospital, or [facility]...) When possible be specific @ -No Did you speak to anyone other than the patient for history (EMS, parent, family, police, friend...)? What history was obtained from this source @ -No Did you review nursing and triage notes (agree or disagree)? Why? @ -I reviewed and agree with nursing and triage notes Were old charts reviewed (outside hosp., previous admission, EMS record, old EKG, old radiological studies, urgent care reports/EKG's, [facility] records)? Report findings @ -I reviewed previous ultrasound results which demonstrate a complex right ovarian mass Differential Diagnosis (chest pain, altered mental status, abdominal pain women, abdominal pain men, vaginal bleeding, weakness, fever, dyspnea, syncope, headache, dizziness, GI bleed, back pain, seizure, CVA, palpatations, mental health, musculoskeletal)? @ -Differential Abdominal Pain Women: Appendicitis, Cholecystitis, diverticulosis, ischemic bowel, pancreatitis, hepatitis, UTI, gastroenteritis, AAA, incarcerated hernia, bowel obstruction, constipation, inflammatory bowel, hepatitis, peptic ulcer disease, splenic infarction, perforated viscus, vulvitis, ovarian torsion, PID, kidney stone, placenta abruption, this is not meant to be an all-inclusive list EKG interpreted by me (3pts min.). @ -Not done X-rays interpreted by me (1pt min.). @ -None done CT interpreted by me (1pt min.). @ -None done U/S interpreted by me (1pt. min.). @ -None done What testing was considered but not performed or refused? (CT, X-rays, U/S, labs)? Why? @ -Ultrasound was considered however patient states she has had many before in the past. Patient does not feel it is necessary to complete ultrasound at this time What meds were considered but not given or refused? Why? @ -None Did you discuss the management of the patient with other professionals (professionals i.e. , PA, [facility], lab, RT, psych nurse, executive secretary social welfare, die presser, teacher, chief quality officer, rn field case manager)? Give summary @ -No Was smoking cessation discussed for >3mins.? @ -No Was critical care preformed (if so, how long)? @ -No Were there social determinants of health that impacted care today? How? (Homelessness, low income, unemployed, alcoholism, drug addiction, transport ation, low edu. Level, literacy, decrease access to med. care, senior living, rehab)? @ -No Was there de-escalation of care discussed even if they declined (Discuss DNR or withdrawal of care, Hospice)? DNR status @ -No What co-morbidities impacted this encounter? (DM, HTN, Smoking, COPD, CAD, Cancer, CVA, ARF, Chemo, Hep., AIDS, mental health diagnosis, sleep apnea, morbid obesity)? @ -Endometriosis Was patient admitted / discharged? Hospital course, mention meds given and route, prescriptions, significant lab abnormalities, going to OR and other pertinent info. @ -Upon arrival patient seen and evaluated in room 24. Thorough history and physical exam was performed. IV access was established. Patient was given pain medications. Laboratory studies are conducted. I did recommend ultrasound ho yanelisver patient refused. States she had an ultrasound earlier which demonstrated her chronic ongoing problem of a right ovarian mass. Patient is requesting pain control at this time. She was given 1 mg Dilaudid. I did discuss the differential and treatment plan. Patient feels improved after pain medication administration enough to where she feels comfortable going home and following up for endometriosis specialist. She states she will return for any new or worsening symptoms Undiagnosed new problem with uncertain prognosis? @ -No Drug Therapy requiring intensive monitoring for toxicity (Heparin, Nitro, Insulin, Cardizem)? @ -No Were any procedures done? @ -No Diagnosis/symptom? @ -Acute exacerbation of right lower quadrant pain, right ovarian mass Acute, or Chronic, or Acute on Chronic? @ -Acute on chronic Uncomplicated (without systemic symptoms) or Complicated (systemic symptoms)? @ -Complicated Side effects of treatment? @ -No Exacerbation, Progression, or Severe Exacerbation? @ -No Poses a threat to life or bodily function? How? (Chest pain, [place], [place], pneumonia, PE, COPD, DKA, ARF, appy, cholecystitis, CVA, Diverticulitis, Homicidal, Suicidal, threat to staff... and all critical care pts) @ -No (Danielle Green) - Lab Data Lab Results 10/20/23 10/20/23 Range/Units 22:30 22:30 WBC 8.8 (3.8-10.6) k/uL RBC 5.03 (3.80-5.40) m/uL Hgb 13.6 (11.4-16.0) gm/dL Hct 40.9 (34.0-46.0) % MCV 81.2 (80.0-100.0) fL MCH 27.1 (25.0-35.0) pg MCHC 33.4 (31.0-37.0) g/dL RDW 14.0 (11.5-15.5) % Plt Count 248 (150-450) k/uL MPV 7.4 Neutrophils % 67 % Lymphocytes % 23 % Monocytes % 5 % Eosinophils % 3 % Basophils % 1 % Neutrophils # 5.9 (1.3-7.7) k/uL Lymphocytes # 2.0 (1.0-4.8) k/uL Monocytes # 0.4 (0-1.0) k/uL Eosinophils # 0.3 (0-0.7) k/uL Basophils # 0.1 (0-0.2) k/uL Sodium 139 (137-145) mmol/L Potassium 4.0 (3.5-5.1) mmol/L Chloride 93 L (98-107) mmol/L Carbon Dioxide 23 (22-30) mmol/L Anion Gap 23 mmol/L BUN 21 H (7-17) mg/dL Creatinine 0.80 (0.52-1.04) mg/dL Est GFR (CKD-EPI)AfAm >90 (>60 ml/min/1.73 sqM) Est GFR (CKD-EPI)NonAf >90 (>60 ml/min/1.73 sqM) Glucose 93 (74-99) mg/dL Calcium 9.5 (8.4-10.2) mg/dL Total Bilirubin 0.5 (0.2-1.3) mg/dL AST 35 (14-36) U/L ALT 45 H (4-34) U/L Alkaline Phosphatase 71 (38-126) U/L Total Protein 7.1 (6.3-8.2) g/dL Albumin 4.4 (3.5-5.0) g/dL Disposition <Iman Wu - Last Filed: 10/20/23 21:07> Is patient prescribed a controlled substance at d/c from ED?: No Time of Disposition: 23:38 <Danielle Green - Last Filed: 11/03/23 00:29> Clinical Impression: Abdominal pain, Endometriosis Disposition: HOME SELF-CARE Condition: Stable Instructions (If sedation given, give patient instructions): Abdominal Pain (ED) Additional Instructions: Follow-up with your specialist for further management. Return for any new or worsening symptoms Referrals: Rosa Lozano MD [Primary Care Provider] - 1-2 days
[2023-10-20] MEDS: HYDROmorphone 1 MG/ML 1 ML SYRINGE IVP STA ×2 (22:39→23:46)
[2023-10-20 22:44] LABS: Basophils # (A) 0.1 k/uL (0-0.2); Basophils % (A) 1 %; Eosinophils # (A) 0.3 k/uL (0-0.7); Eosinophils % (A) 3 %; HCT 40.9 % (34.0-46.0); HGB 13.6 gm/dL (11.4-16.0); Lymphocytes % (A) 23 %; MCH 27.1 pg (25.0-35.0); MCHC 33.4 g/dL (31.0-37.0); MCV 81.2 fL (80.0-100.0); Mean Platelet Volume 7.4; Monocytes # (A) 0.4 k/uL (0-1.0); Monocytes % (A) 5 %; Neutrophils # (A) 5.9 k/uL (1.3-7.7); Neutrophils % (A) 67 %; Platelet Count 248 k/uL (150-450); RBC 5.03 m/uL (3.80-5.40); WBC 8.8 k/uL (3.8-10.6)
[2023-10-20 23:20] LABS: ALT 45 U/L (4-34); AST 35 U/L (14-36); African American GFR (CKD) >90 (>60 ml/min/1.73 sqM); Albumin 4.4 g/dL (3.5-5.0); Alkaline Phosphatase 71 U/L (38-126); Anion Gap 23 mmol/L; Blood Urea Nitrogen 21 mg/dL (7-17); Calcium 9.5 mg/dL (8.4-10.2); Carbon Dioxide 23 mmol/L (22-30); Chloride 93 mmol/L (98-107); Glucose 93 mg/dL (74-99); Non-African American GFR(CKD) >90 (>60 ml/min/1.73 sqM); Sodium 139 mmol/L (137-145); Total Bilirubin 0.5 mg/dL (0.2-1.3); Total Protein 7.1 g/dL (6.3-8.2)
[2023-10-20] MEDS: ACET/COD 300 MG/30 MG STARTER PACK 6 TAB BTL PO STA (23:46)
[2023-10-20 23:54] VITALS: BP 114/81; PULSE 80; RESP 16
== END 2023-10-21 00:04 | disposition home or self-care (01) ==
LOC: EC 20:44
DX: R10.9 Unspecified abdominal pain
CPT/HCPCS: 36415; 80053; 85025; 96374; 96376; 99284

== ENCOUNTER 2023-11-22 16:43 | Emergency (ER) | payer BC ==
--- NOTE | 2023-11-22 16:55 | ED ---
Abdominal Pain HPI - General Stated Complaint: abd pain Time Seen by Provider: 11/22/23 16:53 Source: patient, RN notes reviewed Mode of arrival: ambulatory Limitations: no limitations - History of Present Illness Initial Comments: 38-year-old female presented to ER with a chief complaint of right lower quadrant abdominal pain. Patient has a history of endometriosis and an ovarian cyst on her right ovary. She is scheduled for cyst and right oophorectomy at [facility] on December. She states yesterday started to experience extreme of right lower quadrant abdominal pain with radiation to her back. She states this pain is typical around her time of ovulation. She does report a history of a partial hysterectomy. She is endorsing associated nausea and vomiting. Denies any fevers or chills. Patient took Toradol prior to arrival without relief. No other complaints. - Related Data Previous Rx's Medication Instructions Recorded Tamsulosin [Flomax] 0.4 mg PO DAILY #30 cap 06/15/23 HYDROcodone/APAP 5-325MG [[place] 5] 1 each PO Q6HR PRN #12 tab 07/27/23 HYDROcodone/APAP 5-325MG [[place] 1 tab PO Q6HR PRN 3 Days #12 tab 09/04/23 5-325] traMADol HCl [Ultram] 50 mg PO Q6HR PRN 3 Days #12 tab 09/06/23 Allergies Allergy/AdvReac Type Severity Reaction Status Date / Time albuterol Allergy Rapid Verified 11/22/23 17:03 Heart Rate, swelling Penicillins AdvReac Severe Rapid Verified 11/22/23 17:03 Heart Rate, vision changes and elavated bp Review of Systems ROS Statement: Those systems with pertinent positive or pertinent negative responses have been documented in the HPI. ROS Other: All systems not noted in ROS Statement are negative. Past Medical History Past Medical History: COPD Additional Past Medical History / Comment(s): Murmur when young, endometriosis, cyst on ovary. History of Any Multi-Drug Resistant Organisms: None Reported Past Surgical History: Appendectomy, Section, Hysterectomy Additional Past Surgical History / Comment(s): x2 c- scetion, reconstructive nASAL SX, lap surgery for endometriosis Past Anesthesia/Blood Transfusion Reactions: No Reported Reaction Past Psychological History: No Psychological Hx Reported Smoking Status: Former smoker Past Alcohol Use History: Occasional Past Drug Use History: None Reported - Past Family History Father History Unknown: Yes General Exam - General Exam Comments Initial Comments: Visual Physical Exam Vital signs reviewed General: Well-appearing, uncomfortable appearing in position Head: Normocephalic, atraumatic Eyes: PERRLA, EOMI ENT: Airway patent Chest: Nonlabored breathing Skin: No visual rash, normal skin tone Neuro: Alert and oriented 3 Musculoskeletal: No gross abnormalities Limitations: no limitations General appearance: alert, in no apparent distress Respiratory exam: Present: normal lung sounds bilaterally. Absent: respiratory distress, wheezes, rales, rhonchi, stridor Cardiovascular Exam: Present: regular rate, normal rhythm, normal heart sounds. Absent: systolic murmur, diastolic murmur, rubs, gallop, clicks GI/Abdominal exam: Present: soft, tenderness (RLQ), normal bowel sounds Neurological exam: Present: alert, oriented X3, CN II-XII intact Skin exam: Present: warm, dry, intact, normal color. Absent: rash Course Vital Signs 11/22/23 11/22/23 16:56 20:12 Temperature 98.2 F Pulse Rate 91 72 Respiratory 32 H 18 Rate Blood Pressure 142/81 136/74 O2 Sat by Pulse 96 98 Oximetry Medical Decision Making - Medical Decision Making I performed the quick note portion of this chart. Electronically signed by Brooke Bay PA-C Was pt. sent in by a medical professional or institution (NELLA Monae, ACCOUNTING SPECIALIST, urgent care, hospital, or fpc...) When possible be specific @ -No Did you speak to anyone other than the patient for history (EMS, parent, family, police, friend...)? What history was obtained from this source @ - aiding in HPI and PMhx. Did you review nursing and triage notes (agree or disagree)? Why? @ -I reviewed and agree with nursing and triage notes Were old charts reviewed (outside hosp., previous admission, EMS record, old EKG, old radiological studies, urgent care reports/EKG's, fpc records)? Report findings @ -Yes reviewed ER visit from 10-20-2023. Patient seen for similar complaint. Symptomatic control. Patient discharged. Differential Diagnosis (chest pain, altered mental status, abdominal pain women, abdominal pain men, vaginal bleeding, weakness, fever, dyspnea, syncope, headache, dizziness, GI bleed, back pain, seizure, CVA, palpatations, mental health, musculoskeletal)? @ -Differential Abdominal Pain Women:Appendicitis, Cholecystitis, diverticulosis, ischemic bowel, pancreatitis, hepatitis, UTI, gastroenteritis, AAA, incarcerated hernia, bowel obstruction, constipation, inflammatory bowel, hepatitis, peptic ulcer disease, splenic infarction, perforated viscus, vulvitis, ovarian torsion, PID, kidney stone, placenta abruption, this is not meant to be an all-inclusive list EKG interpreted by me (3pts min.). @ -None done X-rays interpreted by me (1pt min.). @ -None done CT interpreted by me (1pt min.). @ -None done U/S interpreted by me (1pt. min.). @ -Transvaginal ultrasound showing a 6.2 cm suspected endometrioma of the right adnexa. No evidence of ovarian torsion with good arterial and venous flow to right adnexa. Left adnexa surgically absent. What testing was considered but not performed or refused? (CT, X-rays, U/S, labs)? Why? @ -None What meds were considered but not given or refused? Why? @ -None Did you discuss the management of the patient with other professionals (professionals i.e. , PA, ACCOUNTING SPECIALIST, lab, RT, psych nurse, social media director, mirror specialist, teacher, staff antisubmarine officer, case management rn)? Give summary @ -No Was smoking cessation discussed for >3mins.? @ -No Was critical care preformed (if so, how long)? @ -No Were there social determinants of health that impacted care today? How? (Homelessness, low income, unemployed, alcoholism, drug addiction, transportation, low edu. Level, literacy, decrease access to med. care, residential, rehab)? @ -No Was there de-escalation of care discussed even if they declined (Discuss DNR or withdrawal of care, Hospice)? DNR status @ -No What co-morbidities impacted this encounter? (DM, HTN, Smoking, COPD, CAD, Cancer, CVA, ARF, Chemo, Hep., AIDS, mental health diagnosis, sleep apnea, morbid obesity)? @ -Endometriosis scheduled for right oophorectomy on December. Was patient admitted / discharged? Hospital course, mention meds given and route, prescriptions, significant lab abnormalities, going to OR and other pertinent info. @ -Discharge. 38-year-old female presenting to the ER with a chief complaint of abdominal pain. Patient has a past medical history significant of endometriosis and is scheduled for a right oophorectomy on December 14 at [facility]. Patient originally seen as a quick note. Upon rooming, history and physical exam completed. Vitals within normal limits. Patient laying in the position and appears uncomfortable. No signs of acute distress. Tenderness to right lower quadrant. No rebound or guarding. Normal bowel sounds. Laboratory studies obtained unremarkable. Urinalysis unremarkab le hCG negative. Transvaginal ultrasound obtained showing a 6.2 cm suspected endometrioma of the right adnexa. No evidence of ovarian torsion with good arterial and venous flow. Left adnexa surgically absent. Patient received 1 L IV fluids, Zofran, Benadryl and Dilaudid for symptom control in the ER, with improvement. Upon reevaluation, patient resting comfortably in exam room no signs of acute distress. Patient reporting great improvement of her pain and is eager for discharge. Patient discharged with a starter pack of Tylenol threes and Zofran. Strict return parameters discussed. Patient discharged in stable condition with follow-up to endometriosis specialists. Patient verbally ex pressed understanding and agreement with care plan. Case discussed with ED attending, Dr. Green. Undiagnosed new problem with uncertain prognosis? @ -No Drug Therapy requiring intensive monitoring for toxicity (Heparin, Nitro, Insulin, Cardizem)? @ -No Were any procedures done? @ -No Diagnosis/symptom? @ -Abdominal pain/right ovarian endometrioma Acute, or Chronic, or Acute on Chronic? @ -Acute Uncomplicated (without systemic symptoms) or Complicated (systemic symptoms)? @ -Complicated Side effects of treatment? @ -No Exacerbation, Progression, or Severe Exacerbation? @ -No Poses a threat to life or bodily function? How? (Chest pain, USA, OR, pneumonia, PE, COPD, DKA, ARF, appy, cholecystitis, CVA, Diverticulitis, Homicidal, Suicidal, threat to staff... and all critical care pts) @ -No - Lab Data Result diagrams: 11/22/23 17:21 11/22/23 17:21 Lab Results 11/22/23 11/22/23 11/22/23 Range/Units 17:21 17:21 17:21 WBC 7.6 (3.8-10.6) k/uL RBC 5.43 H (3.80-5.40) m/uL Hgb 14.9 (11.4-16.0) gm/dL Hct 44.9 (34.0-46.0) % MCV 82.8 (80.0-100.0) fL MCH 27.5 (25.0-35.0) pg MCHC 33.2 (31.0-37.0) g/dL RDW 13.5 (11.5-15.5) % Plt Count 253 (150-450) k/uL MPV 7.2 Neutrophils % 70 % Lymphocytes % 22 % Monocytes % 4 % Eosinophils % 2 % Basophils % 1 % Neutrophils # 5.3 (1.3-7.7) k/uL Lymphocytes # 1.7 (1.0-4.8) k/uL Monocytes # 0.3 (0-1.0) k/uL Eosinophils # 0.2 (0-0.7) k/uL Basophils # 0.1 (0-0.2) k/uL Sodium (137-145) mmol/L Potassium (3.5-5.1) mmol/L Chloride (98-107) mmol/L Carbon Dioxide (22-30) mmol/L Anion Gap mmol/L BUN (7-17) mg/dL Creatinine (0.52-1.04) mg/dL Est GFR (CKD-EPI)AfAm (>60 ml/min/1.73 sqM) Est GFR (CKD-EPI)NonAf (>60 ml/min/1.73 sqM) Glucose (74-99) mg/dL Plasma Lactic Acid Manny (0.7-2.0) mmol/L Calcium (8.4-10.2) mg/dL Total Bilirubin (0.2-1.3) mg/dL AST (14-36) U/L ALT (4-34) U/L Alkaline Phosphatase (38-126) U/L Total Protein (6.3-8.2) g/dL Albumin (3.5-5.0) g/dL Urine Color Light Yellow Urine Appearance Clear (Clear) Urine pH 6.0 (5.0-8.0) Ur Specific Chase 1.022 (1.001-1.035) Urine Protein Negative (Negative) Urine Glucose (UA) Negative (Negative) Urine Ketones Negative (Negative) Urine Blood Negative (Negative) Urine Nitrite Negative (Negative) Urine Bilirubin Negative (Negative) Urine Urobilinogen 2.0 (<2.0) mg/dL Ur Leukocyte Esterase Negative (Negative) Urine HCG, Qual Not Detected (Not Detectd) 11/22/23 11/22/23 Range/Units 17:21 17:21 WBC (3.8-10.6) k/uL RBC (3.80-5.40) m/uL Hgb (11.4-16.0) gm/dL Hct (34.0-46.0) % MCV (80.0-100.0) fL MCH (25.0-35.0) pg MCHC (31.0-37.0) g/dL RDW (11.5-15.5) % Plt Count (150-450) k/uL MPV Neutrophils % % Lymphocytes % % Monocytes % % Eosinophils % % Basophils % % Neutrophils # (1.3-7.7) k/uL Lymphocytes # (1.0-4.8) k/uL Monocytes # (0-1.0) k/uL Eosinophils # (0-0.7) k/uL Basophils # (0-0.2) k/uL Sodium 138 (137-145) mmol/L Potassium 4.0 (3.5-5.1) mmol/L Chloride 108 H (98-107) mmol/L Carbon Dioxide 23 (22-30) mmol/L Anion Gap 7 mmol/L BUN 21 H (7-17) mg/dL Creatinine 0.97 (0.52-1.04) mg/dL Est GFR (CKD-EPI)AfAm 85 (>60 ml/min/1.73 sqM) Est GFR (CKD-EPI)NonAf 74 (>60 ml/min/1.73 sqM) Glucose 89 (74-99) mg/dL Plasma Lactic Acid Manny 1.2 (0.7-2.0) mmol/L Calcium 9.7 (8.4-10.2) mg/dL Total Bilirubin 0.5 (0.2-1.3) mg/dL AST 31 (14-36) U/L ALT 31 (4-34) U/L Alkaline Phosphatase 74 (38-126) U/L Total Protein 7.3 (6.3-8.2) g/dL Albumin 4.6 (3.5-5.0) g/dL Urine Color Urine Appearance (Clear) Urine pH (5.0-8.0) Ur Specific Chase (1.001-1.035) Urine Protein (Negative) Urine Glucose (UA) (Negative) Urine Ketones (Negative) Urine Blood (Negative) Urine Nitrite (Negative) Urine Bilirubin (Negative) Urine Urobilinogen (<2.0) mg/dL Ur Leukocyte Esterase (Negative) Urine HCG, Qual (Not Detectd) - Radiology Data Radiology results: report reviewed, image reviewed Disposition Clinical Impression: Endometriosis, Abdominal pain, Endometrioma of ovary Disposition: HOME SELF-CARE Condition: Stable Instructions (If sedation given, give patient instructions): Abdominal Pain (ED) Additional Instructions: Follow-up as scheduled with endometriosis specialist. Return to the ER for any new or worsening concerns. Is patient prescribed a controlled substance at d/c from ED?: No Referrals: Rosa Lozano MD [Primary Care Provider] - 1-2 days Time of Disposition: 19:52
[2023-11-22 17:03] VITALS: TEMP 98.2
[2023-11-22] MEDS: ONDANSETRON 4 MG/2 ML VIAL IVP STA (17:28)
[2023-11-22] MEDS: HYDROmorphone 1 MG/ML 1 ML SYRINGE IVP STA ×2 (17:28→18:38)
[2023-11-22] MEDS: SODIUM CHLORIDE 0.9% 1,000 ML IV STA (17:29)
[2023-11-22 17:40] LABS: Basophils # (A) 0.1 k/uL (0-0.2); Basophils % (A) 1 %; Eosinophils # (A) 0.2 k/uL (0-0.7); Eosinophils % (A) 2 %; HCT 44.9 % (34.0-46.0); HGB 14.9 gm/dL (11.4-16.0); Lymphocytes # (A) 1.7 k/uL (1.0-4.8); Lymphocytes % (A) 22 %; MCH 27.5 pg (25.0-35.0); MCHC 33.2 g/dL (31.0-37.0); MCV 82.8 fL (80.0-100.0); Mean Platelet Volume 7.2; Monocytes # (A) 0.3 k/uL (0-1.0); Monocytes % (A) 4 %; Neutrophils # (A) 5.3 k/uL (1.3-7.7); Neutrophils % (A) 70 %; Platelet Count 253 k/uL (150-450); RBC 5.43 m/uL (3.80-5.40); RDW 13.5 % (11.5-15.5); WBC 7.6 k/uL (3.8-10.6)
[2023-11-22 17:59] LABS: ALT 31 U/L (4-34); AST 31 U/L (14-36); African American GFR (CKD) 85 (>60 ml/min/1.73 sqM); Albumin 4.6 g/dL (3.5-5.0); Alkaline Phosphatase 74 U/L (38-126); Anion Gap 7 mmol/L; Blood Urea Nitrogen 21 mg/dL (7-17); Calcium 9.7 mg/dL (8.4-10.2); Carbon Dioxide 23 mmol/L (22-30); Chloride 108 mmol/L (98-107); Glucose 89 mg/dL (74-99); Non-African American GFR(CKD) 74 (>60 ml/min/1.73 sqM); Sodium 138 mmol/L (137-145); Total Bilirubin 0.5 mg/dL (0.2-1.3); Total Protein 7.3 g/dL (6.3-8.2)
[2023-11-22] MEDS: diphenhydrAMINE 50 MG/ML 1 ML VIAL IVP STA (18:39)
[2023-11-22 18:53] LABS: Appearance,Urine Clear (Clear); Bilirubin,Urine Negative (Negative); Blood,Urine Negative (Negative); Color,Urine Light Yellow; Glucose,Urine (UA) Negative (Negative); Ketones,Urine Negative (Negative); Leukocyte Esterase,Urine Negative (Negative); Nitrite,Urine Negative (Negative); Protein,Urine Negative (Negative); Specific Gravity,Urine 1.022 (1.001-1.035)
--- NOTE | 2023-11-22 19:15 | US ---
EXAMINATION TYPE: US transvaginal DATE OF EXAM: 11/22/2023 COMPARISON: 09/26/2023 CLINICAL INDICATION: Female, 38 years old with history of right lower abd pain hx endometrosis; Pt hx endometriosis. partial hysterectomy. left oophorectomy. has surgery scheduled for december 14 to re move right ovary TECHNIQUE: Transvaginal (TV). Transvaginal sonographic images were medically necessary to better as sess the following anatomy: Rt ovary FINDINGS: EXAM MEASUREMENTS: Uterus: Surgically absent cm Endometrial Stripe: Surgically absent cm Right Ovary: 6.2 x 5.4 x 6.2 cm Left Ovary: Surgically absent cm 1. Uterus: Surgically absent 2. Endometrium: Surgically absent 3. Right Ovary: There is a 6.2 x 5.4 x 6.2 cm hypoechoic area with low level echoes seen within the right ovary with a small area of septations. ? endometrioma vs other 4. Left Ovary: Surgically absent Spectral, color and waveform doppler imaging shows good arterial and venous flow within the right o vary. 5. Bilateral Adnexa: free fluid seen in the right adnexa 6. Posterior cul-de-sac: free fluid seen IMPRESSION: 1. Suspected endometrioma in the right adnexa possibly within the right ovary measuring up to 6.2 cm . This predisposes the patient for ovarian torsion. There is no evidence for ovarian torsion at this time. Pelvic MRI with IV contrast recommended for complete evaluation of the pelvis. 2. Surgically absent left ovary. [facility], , 11/22/2023 7:13 PM
[2023-11-22] MEDS: ACET/COD 300 MG/30 MG STARTER PACK 6 TAB BTL PO STA (20:07)
[2023-11-22] MEDS: ONDANSETRON 4 MG ODT STARTER PACK 2 TAB BTL PO STA (20:08)
[2023-11-22 20:14] VITALS: BP 136/74; PULSE 72; RESP 18
== END 2023-11-22 20:14 | disposition home or self-care (01) ==
LOC: EC 16:43
DX: N80.121 Deep endometriosis of right ovary (principal); Z90.721 Acquired absence of ovaries, unilateral; Z88.0 Allergy status to penicillin; Z88.8 Allergy status to other drugs, medicaments and biological substances; Z87.891 Personal history of nicotine dependence
CPT/HCPCS: 36415; 80053; 83605; 85025; 81003; 81025; 93976; 76830; 99285; 96374; 96375 ×2; 96376; 96361; J1200; J2405; J1171; S0119